=== PATIENT | female | born 1940 | race Caucasian/White ===

== ENCOUNTER → 2016-09-10 | Outpatient (CLI) | payer MEDICARE, BC ==
[~2016-09-10] MED LIST: ALBUTEROL SULFATE 0.083% NEB 2.5 MG/3 ML AMPUL NEB ONE
--- NOTE | 2016-09-11 11:11 | PULMONARY FUNCTION TEST ---
DATE OF SERVICE: 09/10/2016 THE VITAL CAPACITY IS SEVERELY DECREASED. THE EXPIRATORY FLOW RATES ARE SEVERELY DECREASED. THE FEV1/VC IS 70%, PREDICTED: 82% LUNG VOLUMES BY NITROGEN WASH OUT METHOD SHOW: TLC IS 46% OF PREDICTED FRC IS 58% OF PREDICTED RV IS 48% OF PREDICTED THE DLCO IS 6.3, 32% OF PREDICTED. THE RV/TLC RATIO IS 44% PREDICTED 42% AFTER BRONCHODILATOR, EXPIRATORY FLOW RATES SHOW NO SIGNIFICANT CHANGE. IMPRESSION: GOOD PATIENT EFFORT. ALTHOUGH THE FEV1/VC IS REDUCED, THE DECREASED LUNG VOLUMES INDICATE A SEVERE RESTRICTIVE DEFECT. DIFFUSING CAPACITY IS SEVERELY DECREASED. CC: GRISELDA ROBBINS MD > KAT
== END ==
LOC: RT 13:38
PROVIDERS: ATTEND Internal Medicine Pulmonary Disease
DX: R05 Cough (principal); R06.00 Dyspnea, unspecified
CPT/HCPCS: 94729; 94727; 94060; 94640; A9270

== ENCOUNTER 2016-10-06 08:27 | Day surgery (SDC) | payer MEDICARE, BC ==
[~2016-10-06 08:27] MED LIST changes: -ALBUTEROL SULFATE 0.083% NEB 2.5 MG/3 ML AMPUL NEB ONE; +CEFAZOLIN SODIUM 1 GM in DEXTROSE 5%-WATER 50 ML IV PRN
[2016-10-06 09:23] LABS: ABSOLUTE EOSINOPHILS # (AUTO) 0.1 10^3/uL (0.0-0.6); ABSOLUTE LYMPHOCYTES (AUTO) 0.7 10^3/uL (0.5-4.7); ABSOLUTE MONOCYTES (AUTO) 0.6 10^3/uL (0.1-1.4); ABSOLUTE NEUT (AUTO) 2.7 10^3/uL (1.7-8.2); BASOPHILS % (AUTO) 1.1 % (0-2); EOSINOPHILS % (AUTO) 2.2 % (0-6); LYMPHOCYTES % (AUTO) 16.2 % (13-45); MEAN CORPUSCULAR HEMOGLOBIN 32.1 pg (27.0-33.4); MEAN CORPUSCULAR HGB CONC 33.3 g/dL (32.0-36.0); MEAN CORPUSCULAR VOLUME 96 fl (80-97); MONOCYTES % (AUTO) 13.9 % (3-13); RED BLOOD COUNT 3.43 10^6/uL (3.72-5.28); RED CELL DISTRIBUTION WIDTH 13.9 % (11.5-14.0); SEGMENTED NEUTROPHILS % (AUTO) 66.6 % (42-78); WHITE BLOOD COUNT 4.1 10^3/uL (4.0-10.5)
[2016-10-06 09:44] LABS: ANION GAP 11 (5-19); BLOOD UREA NITROGEN 30 mg/dL (7-20); CALCIUM 8.5 mg/dL (8.4-10.2); CARBON DIOXIDE 31 mmol/L (22-30); CHLORIDE 97 mmol/L (98-107); CREATININE RESULT 3.51 mg/dL (0.52-1.25); GLUCOSE 123 mg/dL (75-110); POTASSIUM 3.9 mmol/L (3.6-5.0); SODIUM 138.6 mmol/L (137-145)
[2016-10-06] MEDS ORDERED: HEPARIN SOD (PORCINE) 5,000 UNIT/ML 1 ML SYRINGE ONE (09:55)
[2016-10-06] MEDS ORDERED: FENTANYL CITRATE INJ/PF 100 MCG/2 ML AMPUL ONE (09:55)
[2016-10-06] MEDS ORDERED: MIDAZOLAM 2 MG/2 ML INJ ONE (09:55)
[2016-10-06] MEDS ORDERED: LIDOCAINE 0.5% INJ-PF (5 MG/ML) 50 ML SDV ONE (10:42)
--- NOTE | 2016-10-06 12:00 | PDOC DISCHARGE SUMMARY ---
Discharge Summary (SDC) - Discharge Final Diagnosis: #1 malfunctioning arteriovenous fistula left transposed brachial vein. #2 end-stage renal disease on hemodialysis. #3 coronary artery disease. Number for cardiac arrhythmia. Number #5 diabetes mellitus type II. #6 hypertension. Date of Surgery: 10/06/16 Discharge Date: 10/06/16 Condition: Fair Treatment or Instructions: #1 activities within moderation encouraged. #2 follow up in my office by appointment in about 1 month. Call for appointment. #3 the wounds covered clean and dry until removed and hemodialysis. #4 hold off on school/work until evaluation in office. #5 may shower in 48 hours, keep operated area as dry as possible. #6 discharge from ambulatory when ASU criteria met. #7 medications per medication reconciliation sheet. Discharge Diet: Other (Comments) - Renal, diabetic Respiratory Treatments at Home: Deep Breathing/Coughing Report the Following to Your Physician Immediately: Unusual Bleeding
--- NOTE | 2016-10-06 12:16 | Operative Report ---
Operative Report DATE OF SURGERY: 10/06/16 PREOPERATIVE DIAGNOSIS: #1 malfunctioning arteriovenous fistula left transposed brachial vein. #2 end-stage renal disease on hemodialysis. #3 coronary artery disease. Number for cardiac arrhythmia. Number. #5 diabetes mellitus type II. #6 hypertension. POSTOPERATIVE DIAGNOSIS: #1 malfunctioning arteriovenous fistula left transposed brachial vein. #2 end-stage renal disease on hemodialysis. #3 coronary artery disease. Number for cardiac arrhythmia. Number. #5 diabetes mellitus type II. #6 hypertension. OPERATION: #1 needle access into fistula. #2 central, subclavian angioplasty. #3 arteriovenous fistula angioplasty. #4 angiogram and interpretation. SURGEON: ASHOK NEWTON ASSOCIATE ACCOUNT DIRECTOR: none ANESTHESIA: Moderate Sedation TISSUE REMOVED OR ALTERED: None COMPLICATIONS: None ESTIMATED BLOOD LOSS: 2 mL INTRAOPERATIVE FINDINGS: Of a well-founded left transposed basilic vein fistula. Relatively firm in the first 6 cm. Decent caliber for some stenosis in the upper arm, hemodynamic significance difficult to ascertain. Improved and angioplasty. Major stenosis appreciated were the the fistula later leads go into the left subclavian. This was addressed with partial resolution. Complete resolution is probably not possible because of the leads.. Would be fracturing the leads a to higher pressure. Modest improvement was obtained with a residual about 50% stenosis. Initially estimated to be over 80% stenosis. A collateral vessel noted initially remains after angioplasty. Further interventions might need a retrograde approach with attempted improvement in the arterial inflow. PROCEDURE: PROCEDURE: After verifying the procedure and having obtained informed consent, the patient's left arm was prepared with Chlorhexidine and draped out with sterile linen. Local anesthesia infiltrated. Percutaneous access into the fistula ,[ antegrade], obtained about [3 cm] from the arteriovenous anastomosis using a 6 16-gauge needle followed by 0.035 Glidewire, this was followed by a [8] angioplasty balloon . Angioplasty was done and the area of stenosis in the left subclavian. This was done after manipulating the guidewire into the innominate. It proved challenging probably because of the severity of stenosis. A brief mesh angiogram was conducted just to be sure of positioned before inflation. Inflation was done up to a maximum of 8 roosevelt and drainage slowly and gently. Patient angiogram showed improvement. Because of the proximity of the pacemaker leads further inflation was not done. Result was accepted. Inflation now done up to 14 roosevelt for 30 seconds each serially done from the upper fistula down to the introducer. Completion angiogram demonstrated [satisfactory result]. The instrumentation was now withdrawn over a short piece of catheter and a 5-0 Prolene suture. Dressings applied, procedure concluded. Exposure time: 1.5 minutes Radiation: 67 jackson per centimeter squared Contrast: 25 mL of Isovue-M 300, low osmolality. DICTATING PHYSICIAN: ASHKO SOLER M.D. cc: ASHOK SOLER M.D. ([id number]) >>
[2016-10-06 14:09] VITALS: BP 117/52
--- NOTE | 2016-10-06 21:52 | EKG REPORT ---
SEVERITY:- ABNORMAL ECG - VENTRICULAR-PACED RHYTHM : Confirmed by: Estelita Bermeo 06-Oct-2016 21:51:22
== END 2016-10-06 13:25 | disposition home or self-care (01) ==
LOC: CCL 08:27
PROVIDERS: ATTEND Surgery
PROC: 057A3DZ Dilation of Left Brachial Vein with Intraluminal Device, Percutaneous Approach (ICD-10-PCS; principal; 2016-10-06)
DX: T82.858A Stenosis of other vascular prosthetic devices, implants and grafts, initial encounter (principal); Y83.2 Surgical operation with anastomosis, bypass or graft as the cause of abnormal reaction of the patient, or of later complication, without mention of misadventure at the time of the procedure; I12.0 Hypertensive chronic kidney disease with stage 5 chronic kidney disease or end stage renal disease; E11.22 Type 2 diabetes mellitus with diabetic chronic kidney disease; N18.6 End stage renal disease; I25.10 Atherosclerotic heart disease of native coronary artery without angina pectoris; Z99.2 Dependence on renal dialysis; I42.9 Cardiomyopathy, unspecified; E03.9 Hypothyroidism, unspecified; G40.309 Generalized idiopathic epilepsy and epileptic syndromes, not intractable, without status epilepticus; E21.3 Hyperparathyroidism, unspecified; I50.9 Heart failure, unspecified; Z79.899 Other long term (current) drug therapy; Z79.02 Long term (current) use of antithrombotics/antiplatelets; Z79.4 Long term (current) use of insulin
CPT/HCPCS: 36415; 85025; 80048; 36902; 71010; 93005; 93010; C1725; Q9967; C1769; J2250; J1644 ×2; J0690; J3010; J3490

== ENCOUNTER 2016-11-25 16:41 | Inpatient (IN) | payer MEDICARE, BC ==
--- NOTE | 2016-11-25 17:01 | ER Document Report ---
ED General - General Chief Complaint: Dialysis Shunt Problem Stated Complaint: BLEEDING LEFT ARM Mode of Arrival: Ambulatory Information source: Patient Notes: 76 yr old female hx of esrd on dialysis who had dialysis today completed presented with complaints of sob and bleeding from the access. Pt denies any fevers or chills, denies any productive cough. pt notes dr quach believed the fluid requires thoracentesis. TRAVEL OUTSIDE OF THE [place] IN LAST 30 DAYS: No - HPI Onset: Last week Onset/Duration: Persistent, Worse Quality of pain: No pain Severity: Moderate Pain Level: Denies Associated symptoms: Shortness of breath Exacerbated by: Denies Relieved by: Denies Similar symptoms previously: Yes Recently seen / treated by doctor: Yes - Related Data Allergies/Adverse Reactions: Sulfa (Sulfonamide Antibiotics) Allergy (Severe, Verified 11/25/16 16:45) Rash Past Medical History - Social History Smoking Status: Former Smoker Cigarette use (# per day): No Chew tobacco use (# tins/day): No Smoking Education Provided: No Family History: Reviewed & Not Pertinent Patient has suicidal ideation: No Patient has homicidal ideation: No - Past Medical History Cardiac Medical History: Reports: Hx Congestive Heart Failure, Hx Coronary Artery Disease, Hx Heart Attack, Hx Hypertension Pulmonary Medical History: Denies: Hx Asthma, Hx Bronchitis, Hx COPD, Hx Pneumonia Neurological Medical History: Reports: Hx Seizures - seizure precautions . Denies: Hx Cerebrovascular Accident Endocrine Medical History: Reports: Hx Diabetes Mellitus Type 2 Renal/ Medical History: Reports: Hx End Stage Renal Disease, Hx Kidney Stones. Denies: Hx Peritoneal Dialysis Musculoskeltal Medical History: Denies Hx Arthritis Psychiatric Medical History: Denies: Hx Depression Past Surgical History: Reports: Hx Cardiac Surgery - pacemaker, Hx Cholecystectomy, Hx Hysterectomy, Hx Tonsillectomy - and adenoids - Immunizations Hx Diphtheria, Pertussis, Tetanus Vaccination: Yes Review of Systems - Review of Systems Notes: REVIEW OF SYSTEMS: CONSTITUTIONAL : Denies fever, chills, or sweats. Denies recent illness. EENT: Denies eye, ear, throat, or mouth pain or symptoms. Denies nasal or sinus congestion or discharge. Denies throat, tongue, or mouth swelling or difficulty swallowing. CARDIOVASCULAR: Denies chest pain. Denies palpitations or racing or irregular heart beat. Denies ankle edema. RESPIRATORY: Admits to difficulty breathing GASTROINTESTINAL: Denies abdominal pain or distention. Denies nausea, vomiting , or diarrhea. Denies blood in vomitus, stools, or per rectum. Denies black, tarry stools. Denies constipation. GENITOURINARY: Denies difficulty urinating, painful urination, burning, frequency, blood in urine, or discharge. FEMALE GENITOURINARY: Denies vaginal bleeding, heavy or abnormal periods, irregular periods. Denies vaginal discharge or odor. MUSCULOSKELETAL: Denies back or neck pain or stiffness. Denies joint pain or swelling. SKIN: Bleeding from left shunt HEMATOLOGIC : Denies easy bruising or bleeding. LYMPHATIC: Denies swollen, enlarged glands. NEUROLOGICAL: Denies confusion or altered mental status. Denies passing out or loss of consciousness. Denies dizziness or lightheadedness. Denies headache. Denies weakness or paralysis or loss of use of either side. Denies problems with gait or speech. Denies sensory loss, numbness, or tingling. Denies seizures. PSYCHIATRIC: Denies anxiety or stress. Denies depression, suicidal ideation, or homicidal ideation. ALL OTHER SYSTEMS REVIEWED AND NEGATIVE. Dictation was performed using [employer] voice recognition software PHYSICAL EXAMINATION: GENERAL: Well-appearing, well-nourished and in no acute distress. HEAD: Atraumatic, normocephalic. EYES: Pupils equal round and reactive to light, extraocular movements intact, conjunctiva are normal. ENT: Nares patent, oropharynx clear without exudates. Moist mucous membranes. NECK: Normal range of motion, supple without lymphadenopathy LUNGS: Coarse rhonchi at the bases decreased breath sounds bilateral HEART: Regular rate and rhythm without murmurs ABDOMEN: Soft, nontender, nondistended abdomen. No guarding, no rebound. No masses appreciated. Female : deferred Musculoskeletal: Normal range of motion, no pitting or edema. No cyanosis. NEUROLOGICAL: Cranial nerves grossly intact. Normal speech, normal gait. Normal sensory, motor exams PSYCH: Normal mood, normal affect. SKIN: Dialysis access notes no active bleeding or clot in place Physical Exam - Vital signs Vitals: Resp Pulse Ox 22 H 100 11/25/16 16:55 11/25/16 16:55 Course - Re-evaluation Re-evalutation: 11/25/16 17:48 Dr Bullard consulted for admission Pt immediately placed on bipap satting 85% on RA 11/25/16 17:49 11/25/16 18:15 Dr Main flores 11/25/16 18:18 Dr Quach notes pleural effusions since September. varun patient requires thoracentesis. 11/25/16 18:24 Dr Bullard states no longer accepting admissions past 6:15, requests admission to overnight physician. 11/25/16 19:45 Patient is bleeding was immediately stopped with quick clot 11/25/16 19:47 - Vital Signs Vital signs: Temp Pulse Resp BP Pulse Ox 98.9 F 91 23 H 114/91 H 97 11/25/16 16:58 11/25/16 18:51 11/25/16 19:01 11/25/16 19:01 11/25/16 18:51 - Laboratory Result Diagrams: 11/25/16 17:45 11/25/16 17:45 Laboratory results interpreted by me: 11/25/16 11/25/16 11/25/16 17:45 17:45 17:45 WBC 3.4 L RDW 16.1 H Plt Count 100 L Lymphocytes % (Manual) 10 L Monocytes % (Manual) 18 H Abs Lymphs (Manual) 0.3 L Potassium 3.4 L Chloride 94 L BUN 24 H Creatinine 3.46 H Est GFR ( Amer) 15 L Est GFR (Non-Af Amer) 13 L Glucose 131 H Direct Bilirubin 0.7 H AST 40 H Alkaline Phosphatase 251 H NT-Pro-B Natriuret Pep 25443 H - Diagnostic Test Radiology reviewed: Image reviewed, Reports reviewed - EKG Interpretation by Me EKG shows normal: Sinus rhythm, [place], Intervals, QRS Complexes Critical Care Note - Critical Care Note Total time excluding time spent on procedures (mins): 31 Comments: 31 minutes of critical care time spent in direct contact evaluating and reevaluating the patient, treating symptoms, reviewing labs and studies and speaking with family and consultants excluding any procedures Discharge - Discharge Clinical Impression: ESRD (end stage renal disease) on dialysis, Bilateral pleural effusion, Hypokalemia, Hypoxia, Bleeding from shunt Condition: Stable Disposition: ADMITTED INPATIENT Admitting Provider: Hospitalist Unit Admitted: IMCU Referrals: MELODY ARCINIEGA MD [Primary Care Provider] - Follow up as needed
[2016-11-25 18:01] LABS: VENOUS BLOOD BASE EXCESS -2.3 mmol/L; VENOUS BLOOD HCO3 22.9 mmol/L (20-32); VENOUS BLOOD PCO2 40.9 mmHg (35-63); VENOUS BLOOD PH 7.37 (7.30-7.42)
[2016-11-25 18:04] LABS: RED BLOOD COUNT 3.92 10^6/uL (3.72-5.28); WHITE BLOOD COUNT 3.4 10^3/uL (4.0-10.5)
[2016-11-25 18:05] LABS: HEMATOCRIT 38.1 % (36.0-47.0); HEMOGLOBIN 12.8 g/dL (12.0-15.5); HGB HCT DIFFERENCE 0.3; MEAN CORPUSCULAR HEMOGLOBIN 32.7 pg (27.0-33.4); MEAN CORPUSCULAR HGB CONC 33.7 g/dL (32.0-36.0); MEAN CORPUSCULAR VOLUME 97 fl (80-97); RED CELL DISTRIBUTION WIDTH 16.1 % (11.5-14.0)
[2016-11-25 18:06] LABS: PROTHROMBIN TIME 14.4 SEC (11.4-15.4)
[2016-11-25 18:21] LABS: ALANINE AMINOTRANSFERASE 31 U/L (9-52); ALBUMIN 4.4 g/dL (3.5-5.0); ALKALINE PHOSPHATASE 251 U/L (38-126); ANION GAP 18 (5-19); ASPARTATE AMINO TRANSFERASE 40 U/L (14-36); BILIRUBIN,DIRECT 0.7 mg/dL (0.0-0.4); BILIRUBIN,TOTAL 0.8 mg/dL (0.2-1.3); BLOOD UREA NITROGEN 24 mg/dL (7-20); CALCIUM 8.5 mg/dL (8.4-10.2); CARBON DIOXIDE 28 mmol/L (22-30); CHLORIDE 94 mmol/L (98-107); CREATININE RESULT 3.46 mg/dL (0.52-1.25); GLUCOSE 131 mg/dL (75-110); POTASSIUM 3.4 mmol/L (3.6-5.0); SODIUM 140.3 mmol/L (137-145); TOTAL PROTEIN 8.1 g/dL (6.3-8.2)
[2016-11-25 18:24] LABS: BAND NEUTROPHILS % (MANUAL) 3 % (3-5); BASOPHILS % (MANUAL) 2 % (0-2); EOSINOPHILS % (MANUAL) 0 % (0-6); LYMPHOCYTES % (MANUAL) 10 % (13-45); TOTAL CELLS COUNTED 100
[2016-11-25 18:26] LABS: ANISOCYTOSIS 1+; OVALOCYTES 1+; POIKILOCYTOSIS 1+; SCHISTOCYTES SLIGHT; TOXIC VACUOLATION PRESENT
[2016-11-25] MEDS ORDERED: DEXTROSE 50%-WATER 25 GM/50 ML DISP.SYRIN IV PRN ×2 (21:54)
[2016-11-25] MEDS ORDERED: GLUCAGON,HUMAN RECOMB 1 MG INJ IM PRN (21:54)
[2016-11-25] MEDS ORDERED: DEXTROSE 40% GEL 15 GM TUBE PO PRN ×2 (21:54)
[2016-11-25 22:29] LABS: ARTERIAL BLOOD BASE EXCESS 2.6 mmol/L; ARTERIAL BLOOD O2 SATURATION 97.9 % (94-98)
[2016-11-26] MEDS ORDERED: IPRATROPIUM/ALBUTEROL 0.5-2.5 MG/3 ML AMPUL NEB PRN (00:06)
[2016-11-26] MEDS ORDERED: NORMAL SALINE 1000 ML 1,000 ML IV PRN (00:11)
[2016-11-26] MEDS ORDERED: PHARMACY COMMUNICATION ORDER MC NR (00:15)
[2016-11-26] MEDS ORDERED: ACETAMINOPHEN 325 MG TABLET PO PRN (00:16)
[2016-11-26] MEDS ORDERED: PREDNISONE 20 MG TABLET PO ONE (00:30)
[2016-11-26] MEDS ORDERED: AZITHROMYCIN INJ 500 MG VIAL IV PRN (00:37)
[2016-11-26] MEDS ORDERED: CEFTRIAXONE 1 GM/D5W RTU 1 GM/50 ML RTUPB IV ONE (01:00)
[2016-11-26] MEDS ORDERED: AZITHROMYCIN 500 MG in DEXTROSE 5%-WATER 250 ML IV ONE (01:00)
[2016-11-26] MEDS ORDERED: AZITHROMYCIN INJ 500 MG VIAL IV ONE (01:40)
[2016-11-26 07:14] LABS: ANION GAP 15 (5-19); BLOOD UREA NITROGEN 30 mg/dL (7-20); CALCIUM 7.6 mg/dL (8.4-10.2); CARBON DIOXIDE 27 mmol/L (22-30); CHLORIDE 96 mmol/L (98-107); CREATININE RESULT 4.06 mg/dL (0.52-1.25); GLUCOSE 140 mg/dL (75-110); POTASSIUM 3.6 mmol/L (3.6-5.0); SODIUM 138.4 mmol/L (137-145)
[2016-11-26 07:36] LABS: HEMATOCRIT 33.3 % (36.0-47.0); HEMOGLOBIN 11.3 g/dL (12.0-15.5); HGB HCT DIFFERENCE 0.6; MEAN CORPUSCULAR HEMOGLOBIN 33.2 pg (27.0-33.4); MEAN CORPUSCULAR HGB CONC 34.1 g/dL (32.0-36.0); MEAN CORPUSCULAR VOLUME 97 fl (80-97); RED BLOOD COUNT 3.42 10^6/uL (3.72-5.28); RED CELL DISTRIBUTION WIDTH 16.1 % (11.5-14.0); WHITE BLOOD COUNT 4.8 10^3/uL (4.0-10.5)
[2016-11-26 08:08] LABS: ANISOCYTOSIS 1+; BASOPHILS % (MANUAL) 1 % (0-2); EOSINOPHILS % (MANUAL) 0 % (0-6); HYPOCHROMASIA 1+; LYMPHOCYTES % (MANUAL) 8 % (13-45); OVALOCYTES 1+; POIKILOCYTOSIS 1+; POLYCHROMASIA SLIGHT; SCHISTOCYTES SLIGHT; TOTAL CELLS COUNTED 100; TOXIC GRANULATION SLIGHT
--- NOTE | 2016-11-26 10:33 | PDOC H&P ---
History of Present Illness Admission Date/PCP: 11/25/16 20:39 pcp Navin Quach [facility], [place] Patient complains of: sob, bleeding from dialysis access site History of Present Illness: BRANT ELLISON is a 76 year old female, with end-stage renal disease , having completed her most recent dialysis session earlier the day of admission who presents with complaints of bleeding from her dialysis access site , along with a 2 or 3 day history of slowly progressive shortness of breath. Nothing in particular made the shortness of breath worse. Chronic dry cough, without recent change. Was in a fair amount of respiratory distress upon presentation to the emergency room, but was placed on BiPAP, and is currently breathing much more comfortably. Denies fever chills, diarrhea or dysuria, chest or abdominal pain. Produces a small amount of urine each day. Carries a diagnosis of COPD due to secondhand smoke from her . She never smoked herself. Home oxygen. Also carries a diagnosis of combined systolic and diastolic congestive heart failure. Does state her ankles and feet have been more swollen than usual the last day or 2. Bleeding from the access site was easily controlled in the emergency room by application of a hemostatic pad, according to the emergency room physician, with whom I discussed the patient. Prior to my being called, the emergency room physician did discuss the patient with Dr. Quach, patient's supervisor car and yard. Patient reportedly has chronic bilateral pleural effusions. According to emergency room physician, Dr. Quach believes patient would benefit from thoracentesis. Hospitalized on our service December 29 through the of last year with discharge diagnoses including syncope, felt secondary to seizure due to subtherapeutic Dilantin level. Venous stasis ulcers noted on left lower extremity. History and physical and discharge summary have been reviewed. Laboratory results are listed in [facility] and are reviewed. X-ray summary results are listed below, with full report(s) reviewed. . EKG's reviewed. And compared to prior tracing from October 06 of this year. Social history/personal habits: . Lives with daughter and son-in-law. Retired. Rare glass of wine. No tobacco or illicit drug use. Allergies/adverse reactions are listed in [facility] and are reviewed. Home medications Home medications initially autopopulated into [facility] may not accurately reflect patient's true medications, dosages, and/or frequencies. Unfortunately, patient uncertain of medications/dosages/frequencies. REVIEW OF SYSTEMS: Constitutional: No fever or chills. Eyes: Wears glasses. ENT: No swallowing problems or complaints. No hearing problems or complaints. Pulmonary: See history and present illness. Cardiovascular: No current complaints, including chest pain. Gastrointestinal: No current complaints, including nausea or vomiting. Skin: No current complaints, including rashes. Hematologic: Easy bruising. Neurologic: No current complaints, including numbness or tingling. Musculoskeletal: No current complaints, including painful joints. Psychiatric: Mild Anxiety depression; denies suicidal or homicidal ideation. Endocrine: No current complaints, including polyuria. Genitourinary: No current complaints, including dysuria. PHYSICAL EXAMINATION: 5 feet 2 inches tall. 83.7 kg. BMI 33.8 kg/m. Pressure 99/51. Pulse 83 and regular. Respirations are 28 and unlabored. 95% saturation on BiPAP 14/6, 40% FiO2. Temperature 98.9. Obese somewhat chronically ill-appearing female who nevertheless appears approximately her stated age. Pleasant awake alert and cooperative. Appears slightly fatigued, but otherwise is no obvious distress other than perhaps mildly anxious. no evidence of agitation. Skin is warm and dry. No grossly obvious evidence of rash in areas of skin examined. No subcutaneous nodules palpated. She has one tiny ulcer on the anterior medial aspect of her lower left alanis area, without evidence of infection or drainage. Of note, patient has a history of venous stasis ulcers. Not able to completely evaluate lower extremities due to tight legs of her slacks. ENT: Hearing grossly normal to normal conversation. Tongue midline on protrusion pink and slightly tacky. Exam slightly limited by BiPAP mask with attaching straps. Eyes: No scleral icterus. Pupils equal and reactive to light at 4 mm. [place] conjunctivae. Neck is supple and nontender to gentle active range of motion and palpation. Midline trachea. No palpable thyroid nodule mass enlargement or tenderness. Lymphatic: No palpable cervical or clavicular nodes. Neck and lymphatic exams limited by patient body habitus. Exam slightly limited by BiPAP mask with attaching straps. Psychiatric: Reasonable insight into acute and chronic medical issues. Oriented to time location and why here. Lungs: Auscultation reveals equal breath sounds bilaterally. No use of accessory respiratory muscles. Slightly coarse breath sounds bilaterally. Cardiovascular: Heart regular rate and rhythm, without gallop murmur or rub. No abdominal aortic bruits. Bilateral symmetric moderate calf ankle and pedal edema, slightly pitting. Faintly palpable dorsalis pedis pulses. Not able to adequately evaluate for carotid bruits due to airway sounds from BiPAP device. Abdomen: soft, obese, nontender with positive bowel sounds. Unable to adequately evaluate abdomen for masses or organomegaly due to body habitus. Extremities: Feet are warm and dry. No calf tenderness to compression. Gentle manipulation of lower extremities fails to reveal any obvious evidence of injury or instability to knees hips or ankles though slight decreased range of motion due to swelling involved.. Neurologic: Moves upper extremities grossly normally. Patellar reflexes absent. Absent Babinski. Light touch is intact at feet. Dorsiflexion and plantarflexion of feet 5 / 5 and symmetric. Past Medical History Cardiac Medical History: Reports: Congestive Heart Failure, Coronary Artery Disease, Myocardial Infarction, Hypertension Pulmonary Medical History: Denies: Asthma, Bronchitis, Chronic Obstructive Pulmonary Disease (COPD), Pneumonia, Sleep Apnea Neurological Medical History: Reports: Seizures - last episode 01/06 Endocrine Medical History: Reports: Diabetes Mellitus Type 2 Renal/ Medical History: Reports: End Stage Renal Disease GI Medical History: Denies: Cirrhosis, Gastroesophageal Reflux Disease, Hepatitis, Peptic Ulcer Disease Musculoskeltal Medical History: Denies: Arthritis Psychiatric Medical History: Reports: Depression, General Anxiety Disorder Denies: Alcohol Dependency, Substance Abuse, Tobacco Dependency Hematology: Reports: Anemia Infectious Medical History: Denies: Clostridium Difficile, Hepatitis B, Hepatitis C, Methicillin- Resistant Staph Aureus Past Surgical History Past Surgical History: Reports: Section - STENT, Cholecystectomy, Hysterectomy, Tonsillectomy - and adenoids Social History Information Source: Patient, Emergency Med Personnel, [facility] Records Lives with: Family Smoking Status: Former Smoker Frequency of Alcohol Use: Rare Hx Recreational Drug Use: No Drugs: None Hx Prescription Drug Abuse: No - Advance Directive Resuscitation Status: Do Not Resuscitate - Implications of DO NOT RESUSCITATE/ DO NOT INTUBATE status discussed with patient. Discussed in layperson's terms. Implications understood. Patient is the health care decision maker. Patient conversation is lucid and appropriate. Patient desires DO NOT RESUSCITATE/DO NOT INTUBATE status. Will honor patient wishes. Surrogate healthcare decision maker:: Daughter and son-in-law Family History Family History: Reviewed & Not Pertinent Parental Family History Reviewed: Yes Children Family History Reviewed: Yes Sibling(s) Family History Reviewed.: Yes Medication/Allergy Home Medications: Atorvastatin Calcium [Lipitor 20 mg Tablet] 20 mg PO QHS 11/26/16 Insulin Glargine,Hum.rec.anlog [Lantus Solostar] 15 unit SQ QHS 11/26/16 Levothyroxine Sodium [Synthroid 50 Mcg Tablet] 50 mcg PO DAILY 11/26/16 Metoprolol Tartrate [Lopressor 25 mg Tablet] 25 mg PO DAILY 11/26/16 Phenobarbital [Phenobarbital 64.8 Mg Tablet] 64.8 mg PO DAILY 11/26/16 Phenytoin Sodium Extended [Dilantin 100 mg Capsule.er] 100 mg PO QAM 11/26/16 Phenytoin Sodium Extended [Dilantin 100 mg Capsule.er] 200 mg PO QHS 11/26/16 Allergies/Adverse Reactions: Sulfa (Sulfonamide Antibiotics) Allergy (Severe, Verified 11/25/16 16:45) Rash Physical Exam Vital Signs: Temp Pulse Resp BP Pulse Ox 98.9 F 91 19 97/57 L 98 11/25/16 16:58 11/25/16 18:51 11/25/16 22:01 11/25/16 22:01 11/25/16 22:01 Results Laboratory Results: 11/25/16 22:18 Carbonic Acid 1.19 HCO3/H2CO3 Ratio 22:1 ABG pH 7.45 ABG pCO2 39.7 ABG pO2 101.4 H ABG HCO3 26.8 H ABG O2 Saturation 97.9 ABG Base Excess 2.6 FiO2 50% Impressions: Chest X-Ray 11/25/16 00:00 IMPRESSION: MODERATE BILATERAL PLEURAL EFFUSIONS WITH ASSOCIATED AIRSPACE DISEASE PRESUMABLY REPRESENTING COMPRESSIVE ATELECTASIS. SUPERIMPOSED PNEUMONIA CANNOT BE EXCLUDED. Assessment & Plan - Diagnosis (1) Acute on chronic respiratory failure with hypoxemia Is this a current diagnosis for this admission?: YesPlan: Patient will be admitted under suspected COPD exacerbation protocol. Incentive spirometry twice a day. PRN DuoNeb's. daily prednisone. Antibiotics will consist of Rocephin and intravenous Zithromax. I strongly encouraged patient to notify staff should patient feel that her breathing is worsening. Follow-up blood gas, with titration from BiPAP/CPAP. I have strongly encouraged patient not to get out of bed without notifying staff , , to avoid a fall with injury. Knee high SCDs for DVT prophylaxis; with prominent thrombocytopenia, will hold Lovenox or heparin at this point in time. Impression and plans were discussed with patient, who concurs. Time spent in evaluation and management of patient: 75 minutes. (2) Bilateral pleural effusion Is this a current diagnosis for this admission?: YesPlan: Thoracentesis ordered. (3) Bleeding from shunt Is this a current diagnosis for this admission?: YesPlan: Controlled by hemostatic patch in emergency room. (4) DNR (do not resuscitate) Is this a current diagnosis for this admission?: Yes (5) Hypokalemia Is this a current diagnosis for this admission?: Yes (6) Hypotension Qualifiers: Hypotension type: unspecified hypotension type Qualified Code(s): I95.9 - Hypotension, unspecified Is this a current diagnosis for this admission?: YesPlan: Will follow closely. Will forego Lasix as a result. (7) Thrombocytopenia Is this a current diagnosis for this admission?: YesPlan: Uncertain etiology. Follow-up CBC with differential. (8) Acute on chronic combined systolic and diastolic CHF (congestive heart failure) Is this a current diagnosis for this admission?: YesPlan: Suspected. Consider cardiology consult. (9) COPD exacerbation Is this a current diagnosis for this admission?: Yes (10) ESRD (end stage renal disease) on dialysis Is this a current diagnosis for this admission?: YesPlan: Nephrology consult. (11) Seizure disorder Is this a current diagnosis for this admission?: YesPlan: Seizure precautions.Resume home medications as appropriate once these have been determined and reviewed. - Inpatient Certification Based on my medical assessment, after consideration of the patient's comorbidities, presenting symptoms, or acuity I expect that the services needed warrant INPATIENT care.: Yes I certify that my determination is in accordance with my understanding of Medicare's requirements for reasonable and necessary INPATIENT services [42 CFR 412.3e].: Yes Medical Necessity: Significant Comorbidiites Make Outpatient Treatment Too Risky , Need Close Monitoring Due to Risk of Patient Decompensation, Need For Continuous Telemetry Monitoring, Need for Nebulizer Therapy and Monitoring of Response, Need for IV Antibiotics, Risk of Complication if Not Cared For in Hospital, Risk of Diagnosis Which Will Require Inpatient Eval/Care/Monitoring Post Hospital Care: D/C or Transfer Summary
[2016-11-26] MEDS: PREDNISONE 20 MG TABLET PO SCH (10:55)
[2016-11-26] MEDS: AZITHROMYCIN 500 MG in DEXTROSE 5%-WATER 250 ML IV SCH (10:55)
--- NOTE | 2016-11-26 11:48 | PDOC PROGRESS REPORT ---
Subjective Progress Note for:: 11/26/16 Subjective:: Continues with shortness of breath but reports is better on the BiPAP Physical Exam Vital Signs: Temp Pulse Resp BP Pulse Ox 98.7 F 73 21 H 103/40 L 95 11/26/16 07:28 11/26/16 09:09 11/26/16 09:09 11/26/16 07:28 11/26/16 09:09 Intake & Output 11/25/16 11/26/16 11/27/16 06:59 06:59 06:59 Intake Total 425 Output Total 0 Balance 425 Weight 83.7 kg General appearance: PRESENT: mild distress Eye exam: PRESENT: conjunctiva pink. ABSENT: scleral icterus Mouth exam: PRESENT: moist, tongue midline Neck exam: PRESENT: JVD Respiratory exam: PRESENT: decreased breath sounds - Decreased breath sounds in the bases. ABSENT: rales, rhonchi, wheezes Cardiovascular exam: PRESENT: RRR. ABSENT: diastolic murmur, rubs, systolic murmur GI/Abdominal exam: PRESENT: normal bowel sounds, soft. ABSENT: distended, guarding, mass, organolmegaly, rebound, tenderness Extremities exam: PRESENT: pedal edema. ABSENT: calf tenderness, clubbing Neurological exam: PRESENT: alert, awake, oriented to person, oriented to place , oriented to time, oriented to situation, CN II-XII grossly intact. ABSENT: motor sensory deficit Psychiatric exam: PRESENT: anxious Skin exam: PRESENT: dry, intact, warm. ABSENT: cyanosis, rash Results Laboratory Results: 11/26/16 05:31 11/26/16 05:31 11/25/16 11/26/16 11/26/16 22:18 05:31 05:31 WBC 4.8 RBC 3.42 L Hgb 11.3 L Hct 33.3 L MCV 97 MCH 33.2 MCHC 34.1 RDW 16.1 H Plt Count 74 L Seg Neutrophils % Not Reportable Lymphocytes % Not Reportable Monocytes % Not Reportable Eosinophils % Not Reportable Basophils % Not Reportable Absolute Neutrophils Not Reportable Absolute Lymphocytes Not Reportable Absolute Monocytes Not Reportable Absolute Eosinophils Not Reportable Absolute Basophils Not Reportable Carbonic Acid 1.19 HCO3/H2CO3 Ratio 22:1 ABG pH 7.45 ABG pCO2 39.7 ABG pO2 101.4 H ABG HCO3 26.8 H ABG O2 Saturation 97.9 ABG Base Excess 2.6 FiO2 50% Sodium 138.4 Potassium 3.6 Chloride 96 L Carbon Dioxide 27 Anion Gap 15 BUN 30 H Creatinine 4.06 H Est GFR ( Amer) 13 L Est GFR (Non-Af Amer) 11 L Glucose 140 H Calcium 7.6 L Impressions: Chest X-Ray 11/25/16 00:00 IMPRESSION: MODERATE BILATERAL PLEURAL EFFUSIONS WITH ASSOCIATED AIRSPACE DISEASE PRESUMABLY REPRESENTING COMPRESSIVE ATELECTASIS. SUPERIMPOSED PNEUMONIA CANNOT BE EXCLUDED. Assessment & Plan - Diagnosis (1) Acute on chronic respiratory failure with hypoxemia Is this a current diagnosis for this admission?: YesPlan: Patient has bilateral pleural effusions. She appears to have some congestive heart failure. We'll get a thoracentesis today. (2) Bilateral pleural effusion Is this a current diagnosis for this admission?: YesPlan: Patient to have thoracentesis today by radiology. (3) Bleeding from shunt Is this a current diagnosis for this admission?: YesPlan: Resolved (4) Hypokalemia Is this a current diagnosis for this admission?: YesPlan: Resolved. (5) Hypotension Qualifiers: Hypotension type: unspecified hypotension type Qualified Code(s): I95.9 - Hypotension, unspecified Is this a current diagnosis for this admission?: YesPlan: Resolved. Most likely secondary to being postdialysis. (6) Hypoxia Is this a current diagnosis for this admission?: YesPlan: Secondary to congestive heart failure. Patient to get thoracentesis today (7) Thrombocytopenia Is this a current diagnosis for this admission?: YesPlan: Patient is no evidence for active bleeding at this time. (8) Acute on chronic combined systolic and diastolic CHF (congestive heart failure) Is this a current diagnosis for this admission?: YesPlan: The patient has chronic renal failure with dialysis this contributing to this. She will get a thoracentesis today which should hopefully improve her failure. (9) COPD exacerbation Is this a current diagnosis for this admission?: YesPlan: No wheezing on exam today. Patient was started on prednisone and antibiotics. (10) Anemia Is this a current diagnosis for this admission?: YesPlan: Anemia of chronic illness. (11) Coronary artery disease Qualifiers: Coronary Disease-Associated Artery/Lesion type: unspecified vessel or lesion type [place] vs. transplanted heart: [place] heart Associated angina: angina presence unspecified Qualified Code(s): I25.10 - Atherosclerotic heart disease of [place] coronary artery without angina pectoris Is this a current diagnosis for this admission?: YesPlan: Denies any chest pain. (12) Diabetes mellitus type 1 Is this a current diagnosis for this admission?: YesPlan: We'll cover with finger stick blood sugars as well as sliding scale insulin. (13) ESRD (end stage renal disease) on dialysis Is this a current diagnosis for this admission?: YesPlan: Nephrology has been consulted. (14) Hyperlipidemia Is this a current diagnosis for this admission?: Yes (15) Hypertension Qualifiers: Hypertension type: essential hypertension Qualified Code(s): I10 - Essential (primary) hypertension Is this a current diagnosis for this admission?: Yes (16) Secondary hyperparathyroidism (of renal origin) Is this a current diagnosis for this admission?: Yes (17) Seizure disorder Is this a current diagnosis for this admission?: YesPlan: Patient has been seizure-free. (18) DNR (do not resuscitate) Is this a current diagnosis for this admission?: Yes - Time Time Spent with patient: 25-34 minutes - Inpatient Certification Medical Necessity: Need Close Monitoring Due to Risk of Patient Decompensation
--- NOTE | 2016-11-26 20:37 | PDOC CONSULTATION ---
Consultation Consult Date: 11/26/16 Attending physician:: VOLODYMYR BULLARD Consult reason:: I was asked by Dr. Bullard to see the patient for management of end-stage renal disease and supervision of dialysis. History of Present Illness Admission Date/PCP: 11/25/16 20:55 MELODY ARCINIEGA MD History of Present Illness: BRANT ELLISON is a 76 year old female, known to me with history of end-stage renal disease on maintenance hemodialysis 3 times a week, coronary artery disease status post CABG, COPD, bilateral pleural effusion, diabetes and hypertension who presented to the emergency room yesterday because of shortness of breath and bleeding from her AV fistula. Patient has been progressively having an increasingly short of breath for the last 3-4 weeks as observed by dialysis staff and myself. Yesterday I saw the patient on dialysis and patient does not appear well. In fact she appears to be ill compared to previous. When I saw her on dialysis yesterday afternoon she has diminished breath sounds especially in the right compared to the left side. Patient does not have any home oxygen but whenever she goes to [facility] her oxygen saturation would be 88% or lower at room air were requiring oxygen via nasal cannula while during dialysis. This is a been worsening for the last few weeks. Patient was seen by her home office claim specialist in September 2016 from [facility]. The note indicated that the patient has increasing pleural effusion and thoracentesis might be needed. Patient also has been following up with her apron operator Dr. Olvera who she last saw in September 2016 and was thought to be stable from cardiology standpoint during that time. Patient admits that she's been having some cough with scanty phlegm. She does not have any known fever. Due to her worsening respiratory status we called her daughter and I talked to the patient herself still advise her to either see her home office claim specialist as soon as possible or go to the emergency room. Patient is also having problem with her AV fistula. She started to have some bleeding over the fistula. She has thrombocytopenia but she is also on blood thinners with aspirin and Plavix for her heart. Patient supposed to be scheduled for AV fistula repair by Dr. Casper this morning as an outpatient but she ended up being admitted last night. Dr. Casper saw her this morning and thought that patient is so fragile and weak to undergo surgical procedure today so that was canceled. Patient scheduled for thoracentesis by interventional radiologist today but this is rescheduled for tomorrow. Patient remains to be very short of breath and ill looking. Patient was started on treatment for possible underlying pneumonia and COPD exacerbation with IV antibiotics, prednisone, and nebulization treatment. She continues to wear her C Pap during sleep for her sleep apnea. This evening I saw the patient during dialysis treatment. She still appears very short of breath on oxygen via nasal cannula. She requested their C Pap so she can sleep during dialysis treatment. We are going to try to get this much ultrafiltration as patient can tolerate. There was a note of bleeding on her AV fistula so we decrease her blood flow rate. She seems to be tolerating procedure and comfortable at this time. We will continue to monitor. Past Medical History Cardiac Medical History: Reports: CHF-Diastolic, CHF-Systolic, Coronary Artery Disease, Hyperlipidemia, Hypertension-primary, Myocardial Infarction - November 2009, Pulmonary Hypertension, Valvular Heart disease Pulmonary Medical History: Reports: Chronic Obstructive Pulmonary Disease (COPD) , Sleep Apnea - And C Pap Neurological Medical History: Reports: Seizures - last episode 01/06, Other - History of TIA Endocrine Medical History: Reports: Diabetes Mellitus Type 2, Hypothyroidism Complications of Diabetes: Reports: Nephropathy, Retinopathy Renal/ Medical History: Reports: End Stage Renal Disease, Proteinuria, Renal Osteodystropy Psychiatric Medical History: Reports: Depression, General Anxiety Disorder Past Surgical History Past Surgical History: Reports: Section - STENT, Cholecystectomy, Coronary Artery Bypass Graft - 3 vessel in 2009, Hysterectomy, Tonsillectomy - and adenoids, Other - Coronary stent placement in 2010, pacemaker placement in 2011 Social History Lives with: Family Smoking Status: Former Smoker Frequency of Alcohol Use: Rare Hx Recreational Drug Use: No Drugs: None Hx Prescription Drug Abuse: No - Advance Directive Resuscitation Status: Do Not Resuscitate - Implications of DO NOT RESUSCITATE/ DO NOT INTUBATE status discussed with [patient]. Discussed in layperson's terms. Implications understood. [ Patient ] is the health care decision maker. [Patient] conversation is lucid and appropriate. [Patient] desires DO NOT RESUSCITATE/DO NOT INTUBATE status. Will honor [patient] wishes. Family History Family History: CAD - Father, DM - Father, Malignancy - Colon cancer in her father Parental Family History Reviewed: Yes Children Family History Reviewed: Unknown Sibling(s) Family History Reviewed.: Unknown Medication/Allergy Home Medications: Atorvastatin Calcium [Lipitor 20 mg Tablet] 20 mg PO QHS 11/26/16 Insulin Glargine,Hum.rec.anlog [Lantus Solostar] 15 unit SQ QHS 11/26/16 Levothyroxine Sodium [Synthroid 50 Mcg Tablet] 50 mcg PO DAILY 11/26/16 Metoprolol Tartrate [Lopressor 25 mg Tablet] 25 mg PO DAILY 11/26/16 Phenobarbital [Phenobarbital 64.8 Mg Tablet] 64.8 mg PO DAILY 11/26/16 Phenytoin Sodium Extended [Dilantin 100 mg Capsule.er] 100 mg PO QAM 11/26/16 Phenytoin Sodium Extended [Dilantin 100 mg Capsule.er] 200 mg PO QHS 11/26/16 Allergies/Adverse Reactions: Sulfa (Sulfonamide Antibiotics) Allergy (Severe, Verified 11/25/16 16:45) Rash Review of Systems All systems: reviewed and no additional remarkable complaints except as stated Review of Systems: Constitutional: ABSENT: chills, fever(s), headache(s), weight gain, weight loss , admits feeling tired and fatigued Eyes: ABSENT: visual disturbances Ears: ABSENT: hearing changes Cardiovascular: ABSENT: chest pain, orthropnea, palpitations; admits dyspnea on exertion and chronic bilateral pitting edema Respiratory: ABSENT: dyspnea, hemoptysis, admits cough Gastrointestinal: ABSENT: abdominal pain, constipation, diarrhea, hematemesis, hematochezia, nausea, vomiting Genitourinary: ABSENT: dysuria, hematuria; she is only going to tolerate Musculoskeletal: ABSENT: joint swelling Integumentary: ABSENT: rash, wounds Neurological: ABSENT: abnormal gait, abnormal speech, confusion, dizziness, focal weakness, numbness, syncope Psychiatric: ABSENT: anxiety, depression Endocrine: ABSENT: cold intolerance, heat intolerance, polydipsia, polyuria Hematologic/Lymphatic: ABSENT: easy bleeding, easy bruising, lymphadenopathy Physical Exam Vital Signs: Temp Pulse Resp BP Pulse Ox 98.2 F 88 24 H 125/42 L 92 11/26/16 15:41 11/26/16 15:41 11/26/16 15:41 11/26/16 15:41 11/26/16 15:41 Intake & Output 11/25/16 11/26/16 11/27/16 06:59 06:59 06:59 Intake Total 425 500 Output Total 0 0 Balance 425 500 Weight 83.7 kg Vital signs during dialysis, blood pressure 120/54 heart rate of 85, blood flow rate from 450 noted 300 mL per minute reduced due to bleeding, dialysate flow rate of 600 mL per minute. Exam: General appearance: no acute distress, cooperative, she appears ill Head exam: PRESENT: atraumatic, normocephalic Eye exam: PRESENT: Conjunctiva pale, EOMI, PERRLA. ABSENT: conjunctival injection, scleral icterus Mouth exam: PRESENT: moist, neck supple, tongue midline Neck exam: PRESENT: full ROM. ABSENT: carotid bruit, JVD, lymphadenopathy, thyromegaly Respiratory exam: PRESENT: Harsh breath sounds auscultation bilaterally. She has diffuse rhonchi and wheezes ABSENT: rales, stridor Cardiovascular exam: PRESENT: RRR, +S1, +S2. ABSENT: systolic murmur Pulses: PRESENT: normal radial pulses, normal dorsalis pedis pulses GI/Abdominal exam: PRESENT: normal bowel sounds, soft. ABSENT: guarding, mass, tenderness Rectal exam: deferred Extremities exam: PRESENT: full ROM. She has grade 2 bilateral pitting edema ABSENT: calf tenderness Musculoskeletal: PRESENT: full ROM. ABSENT: deformity Neurological exam: PRESENT: alert, Awake, Oriented to person, Oriented to place , Oriented to time, reflexes normal, CN II-XII grossly intact. ABSENT: motor sensory deficit Psychiatric exam: PRESENT: appropriate affect, normal mood. ABSENT: homicidal ideation, suicidal ideation Skin exam: PRESENT: intact, dry, warm. ABSENT: rash Results Laboratory Results: 11/26/16 05:31 11/26/16 05:31 11/25/16 11/26/16 11/26/16 22:18 05:31 05:31 WBC 4.8 RBC 3.42 L Hgb 11.3 L Hct 33.3 L MCV 97 MCH 33.2 MCHC 34.1 RDW 16.1 H Plt Count 74 L Seg Neutrophils % Not Reportable Lymphocytes % Not Reportable Monocytes % Not Reportable Eosinophils % Not Reportable Basophils % Not Reportable Absolute Neutrophils Not Reportable Absolute Lymphocytes Not Reportable Absolute Monocytes Not Reportable Absolute Eosinophils Not Reportable Absolute Basophils Not Reportable Carbonic Acid 1.19 HCO3/H2CO3 Ratio 22:1 ABG pH 7.45 ABG pCO2 39.7 ABG pO2 101.4 H ABG HCO3 26.8 H ABG O2 Saturation 97.9 ABG Base Excess 2.6 FiO2 50% Sodium 138.4 Potassium 3.6 Chloride 96 L Carbon Dioxide 27 Anion Gap 15 BUN 30 H Creatinine 4.06 H Est GFR ( Amer) 13 L Est GFR (Non-Af Amer) 11 L Glucose 140 H Calcium 7.6 L Impressions: Chest X-Ray 11/25/16 00:00 IMPRESSION: MODERATE BILATERAL PLEURAL EFFUSIONS WITH ASSOCIATED AIRSPACE DISEASE PRESUMABLY REPRESENTING COMPRESSIVE ATELECTASIS. SUPERIMPOSED PNEUMONIA CANNOT BE EXCLUDED. Assessment & Plan - Diagnosis (1) Acute on chronic respiratory failure with hypoxemia Is this a current diagnosis for this admission?: YesPlan: Likely multifactorial secondary to bilateral pleural effusion which is worsening , COPD exacerbation, cannot exclude underlying pneumonia or acute bronchitis, with underlying chronic congestive heart failure. Continue oxygen therapy and C-peptide during sleep. (2) Bilateral pleural effusion Is this a current diagnosis for this admission?: YesPlan: I think he may benefit from diagnostic and therapeutic thoracentesis of the pleural effusion at least on the right side. Patient is scheduled to have thoracentesis of a interventional radiologist tomorrow. (3) COPD exacerbation Is this a current diagnosis for this admission?: YesPlan: Agree with IV antibiotics, prednisone, and nebulization treatment. (4) ESRD (end stage renal disease) on dialysis Is this a current diagnosis for this admission?: YesPlan: We will do dialysis today for [3] hours, using the patient's AV fistula, with 3 potassium bath, blood flow rate of 300 mL per minute, dialysate flow rate of [ 600] mL per minute, ultrafiltration 3-4 L, [no heparin] and no Procrit during dialysis intravenously. Patient will be monitored very closely and adjust ultrafiltration according to her blood pressure. Because of the patient's bleeding over the AV fistula we have to decrease her blood flow rate subsequently. Patient will have continue supervise hemodialysis while here in the hospital. (5) Bleeding from shunt Is this a current diagnosis for this admission?: YesPlan: I spoke to Dr. Casper about the patient's bleeding fistula. Hopefully once the patient is slightly better clinically Dr. Casper can go ahead and repair it. (6) Anemia in chronic kidney disease (CKD) Is this a current diagnosis for this admission?: YesPlan: We will give Procrit during dialysis is needed. (7) Chronic congestive heart failure Qualifiers: Congestive heart failure type: combined Qualified Code(s): I50.42 - Chronic combined systolic (congestive) and diastolic (congestive) heart failure Is this a current diagnosis for this admission?: Yes (8) Diabetes mellitus, type II Is this a current diagnosis for this admission?: Yes (9) Thrombocytopenia Is this a current diagnosis for this admission?: Yes (10) Hypertension Qualifiers: Hypertension type: essential hypertension Qualified Code(s): I10 - Essential (primary) hypertension Is this a current diagnosis for this admission?: Yes - Notes Notes: Thank you very much for this consultation and will follow the patient with you. - Time Time Spent: 50 to 70 Minutes
[2016-11-26] MEDS: CEFTRIAXONE 1 GM/D5W RTU 1 GM/50 ML RTUPB IV SCH (22:56)
[2016-11-27] MEDS: IPRATROPIUM/ALBUTEROL 0.5-2.5 MG/3 ML AMPUL NEB SCH ×4 (02:23→20:49)
[2016-11-27 06:57] LABS: HEMATOCRIT 33.4 % (36.0-47.0); HEMOGLOBIN 11.4 g/dL (12.0-15.5); HGB HCT DIFFERENCE 0.8; MEAN CORPUSCULAR VOLUME 97 fl (80-97); RED BLOOD COUNT 3.45 10^6/uL (3.72-5.28); RED CELL DISTRIBUTION WIDTH 15.9 % (11.5-14.0); WHITE BLOOD COUNT 3.1 10^3/uL (4.0-10.5)
[2016-11-27 07:02] LABS: ANION GAP 18 (5-19); BLOOD UREA NITROGEN 25 mg/dL (7-20); CALCIUM 8.1 mg/dL (8.4-10.2); CARBON DIOXIDE 23 mmol/L (22-30); CHLORIDE 97 mmol/L (98-107); CREATININE RESULT 3.56 mg/dL (0.52-1.25); GLUCOSE 125 mg/dL (75-110); POTASSIUM 3.7 mmol/L (3.6-5.0)
[2016-11-27 07:18] LABS: BASOPHILS % (MANUAL) 0 % (0-2); EOSINOPHILS % (MANUAL) 0 % (0-6); LYMPHOCYTES % (MANUAL) 11 % (13-45); TOTAL CELLS COUNTED 100
[2016-11-27 07:21] LABS: ANISOCYTOSIS SLIGHT
[2016-11-27] MEDS: PREDNISONE 20 MG TABLET PO SCH (09:49)
[2016-11-27] MEDS: AZITHROMYCIN 500 MG in DEXTROSE 5%-WATER 250 ML IV SCH (09:50)
--- NOTE | 2016-11-27 11:02 | PDOC PROGRESS REPORT ---
Subjective Progress Note for:: 11/27/16 Subjective:: Continues with shortness of breath but still is on the BiPAP Physical Exam Vital Signs: Temp Pulse Resp BP Pulse Ox 99.8 F 88 26 H 110/40 L 95 11/27/16 07:38 11/27/16 08:00 11/27/16 08:00 11/27/16 07:38 11/27/16 08:00 Intake & Output 11/26/16 11/27/16 11/28/16 06:59 06:59 06:59 Intake Total 425 510 Output Total 0 3701 Balance 425 -3191 Weight 83.7 kg 78.4 kg General appearance: PRESENT: mild distress Eye exam: PRESENT: conjunctiva pink. ABSENT: scleral icterus Mouth exam: PRESENT: moist, tongue midline Neck exam: PRESENT: JVD Respiratory exam: PRESENT: decreased breath sounds - Decreased breath sounds in the bases. ABSENT: rales, rhonchi, wheezes Cardiovascular exam: PRESENT: irregular rhythm. ABSENT: diastolic murmur, rubs , systolic murmur GI/Abdominal exam: PRESENT: normal bowel sounds, soft. ABSENT: distended, guarding, mass, organolmegaly, rebound, tenderness Extremities exam: PRESENT: pedal edema. ABSENT: calf tenderness, clubbing Neurological exam: PRESENT: alert, awake, oriented to person, oriented to place , oriented to time, oriented to situation, CN II-XII grossly intact. ABSENT: motor sensory deficit Psychiatric exam: PRESENT: anxious Skin exam: PRESENT: dry, intact, warm. ABSENT: cyanosis, rash Results Laboratory Results: 11/27/16 06:09 11/27/16 06:09 11/27/16 11/27/16 06:09 06:09 WBC 3.1 L RBC 3.45 L Hgb 11.4 L Hct 33.4 L MCV 97 MCH 33.0 MCHC 34.0 RDW 15.9 H Plt Count 79 L Seg Neutrophils % Not Reportable Lymphocytes % Not Reportable Monocytes % Not Reportable Eosinophils % Not Reportable Basophils % Not Reportable Absolute Neutrophils Not Reportable Absolute Lymphocytes Not Reportable Absolute Monocytes Not Reportable Absolute Eosinophils Not Reportable Absolute Basophils Not Reportable Sodium 138.0 Potassium 3.7 Chloride 97 L Carbon Dioxide 23 Anion Gap 18 BUN 25 H Creatinine 3.56 H Est GFR ( Amer) 15 L Est GFR (Non-Af Amer) 12 L Glucose 125 H Calcium 8.1 L Impressions: Chest X-Ray 11/25/16 00:00 IMPRESSION: MODERATE BILATERAL PLEURAL EFFUSIONS WITH ASSOCIATED AIRSPACE DISEASE PRESUMABLY REPRESENTING COMPRESSIVE ATELECTASIS. SUPERIMPOSED PNEUMONIA CANNOT BE EXCLUDED. Assessment & Plan - Diagnosis (1) Acute on chronic respiratory failure with hypoxemia Is this a current diagnosis for this admission?: YesPlan: Patient has bilateral pleural effusions. She appears to have some congestive heart failure. Will get a thoracentesis today. (2) Bilateral pleural effusion Is this a current diagnosis for this admission?: YesPlan: Patient to have thoracentesis today by radiology. (3) Bleeding from shunt Is this a current diagnosis for this admission?: YesPlan: Resolved (4) Hypokalemia Is this a current diagnosis for this admission?: YesPlan: Resolved. (5) Hypotension Qualifiers: Hypotension type: unspecified hypotension type Qualified Code(s): I95.9 - Hypotension, unspecified Is this a current diagnosis for this admission?: YesPlan: Resolved. (6) Hypoxia Is this a current diagnosis for this admission?: YesPlan: Secondary to congestive heart failure. Patient to get thoracentesis today (7) Thrombocytopenia Is this a current diagnosis for this admission?: YesPlan: Patient is no evidence for active bleeding at this time. (8) Acute on chronic combined systolic and diastolic CHF (congestive heart failure) Is this a current diagnosis for this admission?: YesPlan: The patient has chronic renal failure with dialysis this contributing to this. She will get a thoracentesis today which should hopefully improve her failure. (9) COPD exacerbation Is this a current diagnosis for this admission?: YesPlan: No wheezing on exam today. Patient was started on prednisone and antibiotics. (10) Anemia Is this a current diagnosis for this admission?: YesPlan: Anemia of chronic illness. (11) Coronary artery disease Qualifiers: Coronary Disease-Associated Artery/Lesion type: unspecified vessel or lesion type [place] vs. transplanted heart: [place] heart Associated angina: angina presence unspecified Qualified Code(s): I25.10 - Atherosclerotic heart disease of [place] coronary artery without angina pectoris Is this a current diagnosis for this admission?: YesPlan: Denies any chest pain. (12) Diabetes mellitus type 1 Is this a current diagnosis for this admission?: YesPlan: We'll cover with finger stick blood sugars as well as sliding scale insulin. (13) ESRD (end stage renal disease) on dialysis Is this a current diagnosis for this admission?: YesPlan: She had dialysis yesterday (14) Hyperlipidemia Is this a current diagnosis for this admission?: Yes (15) Hypertension Qualifiers: Hypertension type: essential hypertension Qualified Code(s): I10 - Essential (primary) hypertension Is this a current diagnosis for this admission?: Yes (16) Secondary hyperparathyroidism (of renal origin) Is this a current diagnosis for this admission?: Yes (17) Seizure disorder Is this a current diagnosis for this admission?: YesPlan: Patient has been seizure-free. (18) DNR (do not resuscitate) Is this a current diagnosis for this admission?: Yes - Time Time Spent with patient: 25-34 minutes - Inpatient Certification Medical Necessity: Need Close Monitoring Due to Risk of Patient Decompensation - Plan Summary Plan Summary: she was unable to get a thoracentesis yesterday because of some question of the timing of her last dose of Plavix. She should get her thoracentesis today.
[2016-11-27 13:01] LABS: FLUID TYPE PLEURAL
[2016-11-27 13:02] LABS: FLUID APPEARANCE HAZY; FLUID RBC AVERAGE 267.5; FLUID RBC DILUENT USED NONE USED; FLUID RBC DILUTION FACTOR 1; FLUID RBC SIDE 1 285; FLUID RBC SIDE 2 250; TOTAL RBC SQUARES COUNTED FLD 25
[2016-11-27 14:26] LABS: AMORPHOUS SEDIMENT,URINE TRACE /HPF; APPEARANCE,URINE SLIGHTLY-CLOUDY; BILIRUBIN,URINE NEGATIVE (NEGATIVE); GLUCOSE, URINE NEGATIVE (NEGATIVE); KETONES,URINE TRACE mg/dL (NEGATIVE); LEUKOCYTE ESTERASE,URINE NEGATIVE (NEGATIVE); NITRITE,URINE NEGATIVE (NEGATIVE); PROTEIN,URINE 30 mg/dL (NEGATIVE); URINE SPECIFIC GRAVITY 1.023; UROBILINOGEN,URINE NEGATIVE mg/dL (<2.0)
--- NOTE | 2016-11-27 15:44 | EKG REPORT ---
SEVERITY:- ABNORMAL ECG - ATRIAL-SENSED VENTRICULAR-PACED COMPLEXES : Confirmed by: Stephanie Robles MD 27-Nov-2016 15:43:25
[2016-11-27] MEDS ORDERED: MORPHINE SULFATE 10 MG/ML INJ IV ONE (17:00)
[2016-11-27] MEDS: FOLIC ACID/VITAMIN B COMP W-C CAPSULE PO SCH (17:15)
[2016-11-27] MEDS: INSULIN LISPRO 100 UNIT/ML 3 ML VIAL SUBCUT PRN ×2 (18:06→22:43)
--- NOTE | 2016-11-27 18:58 | PDOC PROGRESS REPORT ---
Subjective Progress Note for:: 11/27/16 Subjective:: Patient underwent both diagnostic and therapeutic thoracentesis today care of the interventional radiologists and was able to take off 1.7 L of fluid. Patient became a little bit tachypneic after the procedure and was placed on BiPAP. At this time, I'm seeing her she seems calm and breathing better. She claims she feels better. She still doesn't have appetite now. Physical Exam Vital Signs: Temp Pulse Resp BP Pulse Ox 97.7 F 91 24 H 104/38 L 98 11/27/16 14:56 11/27/16 14:56 11/27/16 14:51 11/27/16 14:56 11/27/16 14:56 Intake & Output 11/26/16 11/27/16 11/28/16 06:59 06:59 06:59 Intake Total 425 510 Output Total 0 3701 Balance 425 -3191 Weight 83.7 kg 78.4 kg Exam: General appearance: PRESENT: no acute distress, cooperative, well-developed, well-nourished Head exam: PRESENT: atraumatic, normocephalic Eye exam: PRESENT: conjunctiva slightly pale, PERRLA. ABSENT: scleral icterus Neck exam: ABSENT: JVD Respiratory exam: PRESENT: Diminished breath sounds. Breath sounds diminished on the right compared to the left ABSENT: crackles, rales, rhonchi, unlabored, wheezes Cardiovascular exam: PRESENT: Regular rate rhythm -+S1, +S2. ABSENT: diastolic murmur, systolic murmur GI/Abdominal exam: PRESENT: normal bowel sounds, soft. ABSENT: guarding, mass, tenderness Extremities exam: Improved chronic grade 1 bilateral lower extremity edema Neurological exam: PRESENT: alert, awake, oriented to person, place and time. Skin exam: PRESENT: dry, warm, Results Laboratory Results: 11/27/16 06:09 11/27/16 06:09 11/27/16 11/27/16 11/27/16 06:09 06:09 11:43 WBC 3.1 L RBC 3.45 L Hgb 11.4 L Hct 33.4 L MCV 97 MCH 33.0 MCHC 34.0 RDW 15.9 H Plt Count 79 L Seg Neutrophils % Not Reportable Lymphocytes % Not Reportable Monocytes % Not Reportable Eosinophils % Not Reportable Basophils % Not Reportable Absolute Neutrophils Not Reportable Absolute Lymphocytes Not Reportable Absolute Monocytes Not Reportable Absolute Eosinophils Not Reportable Absolute Basophils Not Reportable Sodium 138.0 Potassium 3.7 Chloride 97 L Carbon Dioxide 23 Anion Gap 18 BUN 25 H Creatinine 3.56 H Est GFR ( Amer) 15 L Est GFR (Non-Af Amer) 12 L Glucose 125 H Calcium 8.1 L Urine Color Urine Appearance Urine pH Ur Specific [place] Urine Protein Urine Glucose (UA) Urine Ketones Urine Blood Urine Nitrite Ur Leukocyte Esterase Urine WBC (Auto) Urine RBC (Auto) Fluid Type PLEURAL Fluid Source Fluid Color DARK YELLOW Fluid Appearance HAZY Fluid Viscosity LIQUID Fluid WBC 56 Fluid RBC 2675 11/27/16 13:00 WBC RBC Hgb Hct MCV MCH MCHC RDW Plt Count Seg Neutrophils % Lymphocytes % Monocytes % Eosinophils % Basophils % Absolute Neutrophils Absolute Lymphocytes Absolute Monocytes Absolute Eosinophils Absolute Basophils Sodium Potassium Chloride Carbon Dioxide Anion Gap BUN Creatinine Est GFR ( Amer) Est GFR (Non-Af Amer) Glucose Calcium Urine Color BARRY Urine Appearance SLIGHTLY-CLOUDY Urine pH 5.0 Ur Specific [place] 1.023 Urine Protein 30 H Urine Glucose (UA) NEGATIVE Urine Ketones TRACE H Urine Blood SMALL H Urine Nitrite NEGATIVE Ur Leukocyte Esterase NEGATIVE Urine WBC (Auto) 5 Urine RBC (Auto) 1 Fluid Type Fluid Source Fluid Color Fluid Appearance Fluid Viscosity Fluid WBC Fluid RBC Impressions: Thoracentesis Ultrasound 11/27/16 00:07 IMPRESSION: SUCCESSFUL THORACENTESIS USING ULTRASOUND GUIDANCE. Chest X-Ray 11/27/16 13:55 IMPRESSION: STABLE APPEARANCE OF THE CHEST. NO PNEUMOTHORAX FOLLOWING THORACENTESIS. Assessment & Plan - Diagnosis (1) Acute on chronic respiratory failure with hypoxemia Is this a current diagnosis for this admission?: YesPlan: Likely multifactorial secondary to bilateral pleural effusion which is worsening , COPD exacerbation, cannot exclude underlying pneumonia or acute bronchitis, with underlying chronic congestive heart failure. Continue oxygen therapy and BiPAP during sleep. Clinically improved after paracentesis today. (2) Bilateral pleural effusion Is this a current diagnosis for this admission?: YesPlan: Status post right thoracentesis obtaining 1.7 L of fluid. (3) COPD exacerbation Is this a current diagnosis for this admission?: YesPlan: Agree with IV antibiotics, prednisone, and nebulization treatment. She seems improved today. (4) ESRD (end stage renal disease) on dialysis Is this a current diagnosis for this admission?: YesPlan: We will plan for dialysis tomorrow. We will get ultrafiltration for only up to 2 L. I will not be around tomorrow so Dr. Tejas Hdez will be supervising her dialysis. (5) Bleeding from shunt Is this a current diagnosis for this admission?: YesPlan: I spoke to Dr. Casper about the patient's bleeding fistula. Hopefully once the patient is slightly better clinically Dr. Casper can go ahead and repair it. Hopefully that can be done next week before she goes home. (6) Anemia in chronic kidney disease (CKD) Is this a current diagnosis for this admission?: YesPlan: We will give Procrit during dialysis is needed. (7) Chronic congestive heart failure Qualifiers: Congestive heart failure type: combined Qualified Code(s): I50.42 - Chronic combined systolic (congestive) and diastolic (congestive) heart failure Is this a current diagnosis for this admission?: Yes (8) Diabetes mellitus, type II Is this a current diagnosis for this admission?: Yes (9) Thrombocytopenia Is this a current diagnosis for this admission?: Yes (10) Hypertension Qualifiers: Hypertension type: essential hypertension Qualified Code(s): I10 - Essential (primary) hypertension Is this a current diagnosis for this admission?: YesPlan: Currently hypotensive without her usual blood pressure medications. Continue to hold all other blood pressure medications. - Time Time with patient: 15-25 minutes
[2016-11-27] MEDS: CEFTRIAXONE 1 GM/D5W RTU 1 GM/50 ML RTUPB IV SCH (21:59)
[2016-11-28] MEDS: IPRATROPIUM/ALBUTEROL 0.5-2.5 MG/3 ML AMPUL NEB SCH ×4 (02:15→20:34)
[2016-11-28 05:52] LABS: HEMATOCRIT 34.7 % (36.0-47.0); HEMOGLOBIN 11.7 g/dL (12.0-15.5); HGB HCT DIFFERENCE 0.4; MEAN CORPUSCULAR HEMOGLOBIN 32.9 pg (27.0-33.4); MEAN CORPUSCULAR HGB CONC 33.7 g/dL (32.0-36.0); MEAN CORPUSCULAR VOLUME 98 fl (80-97); RED BLOOD COUNT 3.55 10^6/uL (3.72-5.28); RED CELL DISTRIBUTION WIDTH 16.2 % (11.5-14.0); WHITE BLOOD COUNT 3.5 10^3/uL (4.0-10.5)
[2016-11-28 05:58] LABS: ANION GAP 14 (5-19); BLOOD UREA NITROGEN 39 mg/dL (7-20); CARBON DIOXIDE 27 mmol/L (22-30); CHLORIDE 95 mmol/L (98-107); CREATININE RESULT 4.48 mg/dL (0.52-1.25); GLUCOSE 197 mg/dL (75-110); POTASSIUM 3.6 mmol/L (3.6-5.0); SODIUM 135.5 mmol/L (137-145)
[2016-11-28 06:31] LABS: BASOPHILS % (MANUAL) 1 % (0-2); EOSINOPHILS % (MANUAL) 0 % (0-6); LYMPHOCYTES % (MANUAL) 12 % (13-45); TOTAL CELLS COUNTED 100
[2016-11-28 06:32] LABS: ANISOCYTOSIS 1+; BURR CELLS SLIGHT; OVALOCYTES SLIGHT
[2016-11-28] MEDS: AZITHROMYCIN 500 MG in DEXTROSE 5%-WATER 250 ML IV SCH (10:15)
[2016-11-28] MEDS: PREDNISONE 20 MG TABLET PO SCH (10:15)
[2016-11-28] MEDS: INSULIN LISPRO 100 UNIT/ML 3 ML VIAL SUBCUT PRN ×2 (11:56→21:39)
--- NOTE | 2016-11-28 12:26 | PDOC PROGRESS REPORT ---
Subjective Progress Note for:: 11/28/16 Subjective:: Patient still has shortness of breath. She is currently on BiPAP and states that when she tries to come off of BiPAP after a while her breathing worsens and she has to go back on BiPAP again. She states that she does not wear oxygen outside of the hospital. Patient denies fever, chills, headache, new focal weakness, chest pain, abdominal pain, nausea, vomiting, diarrhea, constipation. Physical Exam Vital Signs: Temp Pulse Resp BP Pulse Ox 97.9 F 87 22 H 109/40 L 96 11/28/16 08:21 11/28/16 08:25 11/28/16 08:25 11/28/16 08:21 11/28/16 08:21 Intake & Output 11/27/16 11/28/16 11/29/16 06:59 06:59 06:59 Intake Total 510 770 Output Total 3701 Balance -3191 770 Weight 78.4 kg 76.2 kg 76.2 kg GENERAL: No acute distress HEENT: Conjunctiva clear, nonicteric, moist mucous membranes, no JVD, midline trachea RESPIRATORY: Bilateral anterior rhonchi R>L CARDIAC: Regular rate and rhythm, no murmurs/gallops/rubs ABDOMEN: Soft, nondistended, nontender, positive bowel sounds, no rebound, no guarding EXTREMETIES: No edema, cyanosis, clubbing NEUROLOGIC: Alert, oriented to person/place/time, CN's grossly intact, no focal deficits SKIN: No rash, wounds PSYCH: Normal mood, normal affect Results Laboratory Results: 11/28/16 05:11 11/28/16 05:11 11/27/16 11/27/16 11/28/16 11:43 13:00 05:11 WBC 3.5 L RBC 3.55 L Hgb 11.7 L Hct 34.7 L MCV 98 H MCH 32.9 MCHC 33.7 RDW 16.2 H Plt Count 68 L Seg Neutrophils % Not Reportable Lymphocytes % Not Reportable Monocytes % Not Reportable Eosinophils % Not Reportable Basophils % Not Reportable Absolute Neutrophils Not Reportable Absolute Lymphocytes Not Reportable Absolute Monocytes Not Reportable Absolute Eosinophils Not Reportable Absolute Basophils Not Reportable Sodium Potassium Chloride Carbon Dioxide Anion Gap BUN Creatinine Est GFR ( Amer) Est GFR (Non-Af Amer) Glucose Calcium Urine Color BARRY Urine Appearance SLIGHTLY-CLOUDY Urine pH 5.0 Ur Specific [place] 1.023 Urine Protein 30 H Urine Glucose (UA) NEGATIVE Urine Ketones TRACE H Urine Blood SMALL H Urine Nitrite NEGATIVE Ur Leukocyte Esterase NEGATIVE Urine WBC (Auto) 5 Urine RBC (Auto) 1 Fluid Type PLEURAL Fluid Source Fluid Color DARK YELLOW Fluid Appearance HAZY Fluid Viscosity LIQUID Fluid WBC 56 Fluid RBC 2675 11/28/16 05:11 WBC RBC Hgb Hct MCV MCH MCHC RDW Plt Count Seg Neutrophils % Lymphocytes % Monocytes % Eosinophils % Basophils % Absolute Neutrophils Absolute Lymphocytes Absolute Monocytes Absolute Eosinophils Absolute Basophils Sodium 135.5 L Potassium 3.6 Chloride 95 L Carbon Dioxide 27 Anion Gap 14 BUN 39 H Creatinine 4.48 H Est GFR ( Amer) 11 L Est GFR (Non-Af Amer) 10 L Glucose 197 H Calcium 8.0 L Urine Color Urine Appearance Urine pH Ur Specific [place] Urine Protein Urine Glucose (UA) Urine Ketones Urine Blood Urine Nitrite Ur Leukocyte Esterase Urine WBC (Auto) Urine RBC (Auto) Fluid Type Fluid Source Fluid Color Fluid Appearance Fluid Viscosity Fluid WBC Fluid RBC Impressions: Thoracentesis Ultrasound 11/27/16 00:07 IMPRESSION: SUCCESSFUL THORACENTESIS USING ULTRASOUND GUIDANCE. Chest X-Ray 11/27/16 13:55 IMPRESSION: STABLE APPEARANCE OF THE CHEST. NO PNEUMOTHORAX FOLLOWING THORACENTESIS. Assessment & Plan - Diagnosis (1) Acute on chronic respiratory failure with hypoxemia Is this a current diagnosis for this admission?: YesPlan: Continue alternating BiPAP with nasal cannula oxygen supplementation as tolerated. Patient may need home oxygen. I would like to check CT of chest secondary to abnormal chest x-ray. This will have to be a noncontrasted study secondary to end-stage renal disease. (2) Bilateral pleural effusion Is this a current diagnosis for this admission?: YesPlan: Patient is status post diagnostic and therapeutic thoracentesis on 11/27/2016 with removal of 1200 mL fluid. Fluid had high RBC count. Will send for cytology. We'll check CT scan of chest. Consult Dr. Locke of pulmonary medicine. It would be difficult to say that patient does not have airspace disease based on chest x-ray. Cultures have been negative so I will discontinue IV antibiotics. I would like to continue oral doxycycline. (3) Bleeding from shunt Is this a current diagnosis for this admission?: Yes (4) Chronic congestive heart failure Qualifiers: Congestive heart failure type: combined Qualified Code(s): I50.42 - Chronic combined systolic (congestive) and diastolic (congestive) heart failure Is this a current diagnosis for this admission?: YesPlan: Continue metoprolol. Continue to maintain fluid balance with hemodialysis. (5) ESRD (end stage renal disease) on dialysis Is this a current diagnosis for this admission?: YesPlan: Patient is on hemodialysis and is being followed by Dr. Quach of nephrology. (6) Diabetes mellitus, type II Is this a current diagnosis for this admission?: YesPlan: Resume home dose of Lantus 15 units subcutaneous nightly. Continue sliding scale insulin. (7) Thrombocytopenia Is this a current diagnosis for this admission?: Yes (8) Secondary hyperparathyroidism (of renal origin) Is this a current diagnosis for this admission?: Yes (9) Seizure disorder Is this a current diagnosis for this admission?: YesPlan: Resume home dose of Dilantin and phenobarbital. (10) Hypothyroid Is this a current diagnosis for this admission?: YesPlan: Resume Synthroid. (11) Coronary artery disease Qualifiers: Coronary Disease-Associated Artery/Lesion type: unspecified vessel or lesion type [place] vs. transplanted heart: [place] heart Associated angina: angina presence unspecified Qualified Code(s): I25.10 - Atherosclerotic heart disease of [place] coronary artery without angina pectoris Is this a current diagnosis for this admission?: YesPlan: Continue atorvastatin and metoprolol. Patient is too thrombocytopenia to be on antiplatelet agent at this time. (12) DNR (do not resuscitate) Is this a current diagnosis for this admission?: Yes - Time Time Spent with patient: 35 or more minutes
[2016-11-28] MEDS ORDERED: DOXYCYCLINE HYCLATE 100 MG TABLET PO ONE (13:00)
[2016-11-28] MEDS: FOLIC ACID/VITAMIN B COMP W-C CAPSULE PO SCH (15:20)
--- NOTE | 2016-11-28 18:27 | PDOC PROGRESS REPORT ---
Subjective Progress Note for:: 11/28/16 Subjective:: Patient was seen in the ICU. Patient is having respiratory distress and is on BiPAP. I'm covering Dr. Sprague and seeing on dialysis. She is currently undergoing dialysis without any issues. Plans to remove it in 2 and 3 L as tolerated. Even though she has been hypotensive and in the last few days her blood pressure is currently holding and she is quite edematous and that she is allowing ultrafiltration to happen without difficulties in maintaining blood pressure. Chart was reviewed and discussions were done the treating nurse. She has had a CT scan done today which shows a large right pleural effusion and possible right pneumonia. Patient currently is on oral antibiotics. Physical Exam Vital Signs: Temp Pulse Resp BP Pulse Ox 98.6 F 88 25 H 99/45 L 99 11/28/16 11:25 11/28/16 13:51 11/28/16 13:51 11/28/16 11:25 11/28/16 13:51 Intake & Output 11/27/16 11/28/16 11/29/16 06:59 06:59 06:59 Intake Total 510 770 437 Output Total 3701 Balance -3191 770 437 Weight 78.4 kg 76.2 kg 76.2 kg General appearance: PRESENT: mild distress Exam: On BiPAP. Respiratory exam: PRESENT: clear to auscultation radha, crackles - In both mid zone lung gaytan in the infra-axillary region., decreased breath sounds. ABSENT : rhonchi Cardiovascular exam: PRESENT: +S1, +S2, systolic murmur GI/Abdominal exam: PRESENT: normal bowel sounds, soft. ABSENT: diminished bowel sounds, firm, tenderness Extremities exam: PRESENT: +1 edema - Venous stasis changes. Skin exam: PRESENT: rash - Stasis changes in both lower extremities. Results Laboratory Results: 11/28/16 05:11 11/28/16 05:11 11/28/16 11/28/16 05:11 05:11 WBC 3.5 L RBC 3.55 L Hgb 11.7 L Hct 34.7 L MCV 98 H MCH 32.9 MCHC 33.7 RDW 16.2 H Plt Count 68 L Seg Neutrophils % Not Reportable Lymphocytes % Not Reportable Monocytes % Not Reportable Eosinophils % Not Reportable Basophils % Not Reportable Absolute Neutrophils Not Reportable Absolute Lymphocytes Not Reportable Absolute Monocytes Not Reportable Absolute Eosinophils Not Reportable Absolute Basophils Not Reportable Sodium 135.5 L Potassium 3.6 Chloride 95 L Carbon Dioxide 27 Anion Gap 14 BUN 39 H Creatinine 4.48 H Est GFR ( Amer) 11 L Est GFR (Non-Af Amer) 10 L Glucose 197 H Calcium 8.0 L Impressions: Thoracentesis Ultrasound 11/27/16 00:07 IMPRESSION: SUCCESSFUL THORACENTESIS USING ULTRASOUND GUIDANCE. Chest X-Ray 11/27/16 13:55 IMPRESSION: STABLE APPEARANCE OF THE CHEST. NO PNEUMOTHORAX FOLLOWING THORACENTESIS. Chest CT 11/28/16 00:00 IMPRESSION: Rapid re-accumulation of a large right pleural effusion Right middle and lower lobe airspace disease edema versus pneumonia Assessment & Plan - Diagnosis (1) Respiratory failure Plan: Currently maintaining sats on BiPAP . She has a large left pleural effusion and a right pneumonia. He also has acute on chronic congestive heart failure. She should respond partially to ultrafiltration between 2 and 3 L today on dialysis. Further management as per hospitalist. (2) Anemia in chronic kidney disease (CKD) Is this a current diagnosis for this admission?: YesPlan: Holding off erythropoietin given a hemoglobin today of 11.7. (3) Chronic congestive heart failure Qualifiers: Congestive heart failure type: combined Qualified Code(s): I50.42 - Chronic combined systolic (congestive) and diastolic (congestive) heart failure Is this a current diagnosis for this admission?: YesPlan: As per hospitalist. How she responds to ultrafiltration on hemodialysis today. (4) Diabetes mellitus, type II Is this a current diagnosis for this admission?: Yes (5) Hypokalemia Is this a current diagnosis for this admission?: YesPlan: Currently stable. She is on a 3K bath. (6) ESRD (end stage renal disease) on dialysis Is this a current diagnosis for this admission?: YesPlan: Undergoing dialysis. Discuss orders with Gini the treating dialysis. She is tolerating ultrafiltration and should help her with her heart failure. I believe further respiratory failure could be tackled with the treatment of the pneumonia and possible paracentesis of 4 large left pleural effusion. Dr. Quach will be back to take over her management on Thursday.
[2016-11-28] MEDS: DOXYCYCLINE HYCLATE 100 MG TABLET PO SCH (21:36)
[2016-11-28] MEDS: PHENYTOIN SODIUM EXTENDED 100 MG CAPSULE PO SCH (21:39)
[2016-11-28] MEDS: ATORVASTATIN CALCIUM 20 MG TABLET PO SCH (21:39)
[2016-11-28] MEDS: INSULIN GLARGINE,HUM.REC.ANLOG 300 UNIT/3 ML INSULN.PEN SUBCUT SCH (21:39)
[2016-11-29] MEDS: IPRATROPIUM/ALBUTEROL 0.5-2.5 MG/3 ML AMPUL NEB SCH ×4 (01:42→20:23)
[2016-11-29] MEDS: METOPROLOL TARTRATE 25 MG TABLET PO SCH (10:38)
[2016-11-29] MEDS: LEVOTHYROXINE SODIUM 0.05 MG TABLET PO SCH (10:39)
[2016-11-29] MEDS: DOXYCYCLINE HYCLATE 100 MG TABLET PO SCH ×2 (10:39→22:50)
[2016-11-29] MEDS: PHENYTOIN SODIUM EXTENDED 100 MG CAPSULE PO SCH ×2 (10:39→22:50)
[2016-11-29] MEDS: PREDNISONE 20 MG TABLET PO SCH (10:39)
[2016-11-29] MEDS: PHENOBARBITAL 64.8 MG TABLET PO SCH (10:39)
--- NOTE | 2016-11-29 11:11 | PDOC CONSULTATION ---
Consultation Consult Date: 11/29/16 Attending physician:: ALKA WHALEN Consult reason:: dyspnea History of Present Illness Admission Date/PCP: 11/25/16 20:55 MELDOY ARCINIEGA MD History of Present Illness: BRANT ELLISON is a 76 year old female, with end-stage renal disease , having completed her most recent dialysis session earlier the day of admission who presents with complaints of from her dialysis access site, along with a 2 or 3 day history of slowly progressive shortness of breath. Nothing in particular made the shortness of breath worse. Chronic dry cough, without recent change.She admits to cough but denies hemoptysis.Her PPD was neg as a child.Denies hx of chronic lung disease as a child or adolecent.Admits to exspore to passive smoke as a child and as a adult.She denies she has ever smoked.@ cats ,no recent travel.Admits to snoring,restless sleep unrestful sleep and daytime somulence. Past Medical History Cardiac Medical History: Reports: Congestive Heart Failure, Coronary Artery Disease, Myocardial Infarction, Hyperlipidema, Hypertension Pulmonary Medical History: Denies: Asthma, Bronchitis, Chronic Obstructive Pulmonary Disease (COPD), Pneumonia, Sleep Apnea Neurological Medical History: Reports: Seizures - last episode 01/06, Other - History of TIA Endocrine Medical History: Reports: Diabetes Mellitus Type 2, Hypothyroidism Renal/ Medical History: Reports: End Stage Renal Disease GI Medical History: Denies: Cirrhosis, Gastroesophageal Reflux Disease, Hepatitis, Peptic Ulcer Disease Musculoskeltal Medical History: Denies: Arthritis Psychiatric Medical History: Reports: Depression, General Anxiety Disorder Denies: Alcohol Dependency, Substance Abuse, Tobacco Dependency Hematology: Reports: Anemia Infectious Medical History: Denies: Clostridium Difficile, Hepatitis B, Hepatitis C, Methicillin- Resistant Staph Aureus Past Surgical History Past Surgical History: Reports: Section - STENT, Cholecystectomy, Coronary Artery Bypass Graft - 3 vessel in 2009, Hysterectomy, Tonsillectomy - and adenoids, Other - Coronary stent placement in 2010, pacemaker placement in 2011 Social History Information Source: Patient, [facility] Records Lives with: Family Smoking Status: Never Smoker Passive smoke exposure as: Both Frequency of Alcohol Use: Rare Hx Recreational Drug Use: No Drugs: None Hx Prescription Drug Abuse: No Do you have pets?: Yes Have you had any respiratory illnesses as a child?: No Have you had any recent respiratory illnesses?: No Have you travelled outside of [place] in the past 12 months?: No - Advance Directive Resuscitation Status: Do Not Resuscitate - Implications of DO NOT RESUSCITATE/ DO NOT INTUBATE status discussed with [patient]. Discussed in layperson's terms. Implications understood. [ Patient ] is the health care decision maker. [Patient] conversation is lucid and appropriate. [Patient] desires DO NOT RESUSCITATE/DO NOT INTUBATE status. Will honor [patient] wishes. Family History Family History: Reviewed & Not Pertinent Parental Family History Reviewed: No Children Family History Reviewed: No Sibling(s) Family History Reviewed.: No Medication/Allergy Home Medications: Atorvastatin Calcium [Lipitor 20 mg Tablet] 20 mg PO QHS 11/26/16 Insulin Glargine,Hum.rec.anlog [Lantus Solostar] 15 unit SQ QHS 11/26/16 Levothyroxine Sodium [Synthroid 50 Mcg Tablet] 50 mcg PO DAILY 11/26/16 Metoprolol Tartrate [Lopressor 25 mg Tablet] 25 mg PO DAILY 11/26/16 Phenobarbital [Phenobarbital 64.8 Mg Tablet] 64.8 mg PO DAILY 11/26/16 Phenytoin Sodium Extended [Dilantin 100 mg Capsule.er] 100 mg PO QAM 11/26/16 Phenytoin Sodium Extended [Dilantin 100 mg Capsule.er] 200 mg PO QHS 11/26/16 Allergies/Adverse Reactions: Sulfa (Sulfonamide Antibiotics) Allergy (Severe, Verified 11/25/16 16:45) Rash Physical Exam Vital Signs: Temp Pulse Resp BP Pulse Ox 97.9 F 80 20 116/45 L 96 11/29/16 07:59 11/29/16 08:34 11/29/16 08:34 11/29/16 07:59 11/29/16 08:34 Intake & Output 11/28/16 11/29/16 11/30/16 06:59 06:59 06:59 Intake Total 770 447 Output Total 3100 Balance 770 -2653 Weight 76.2 kg 76 kg General appearance: PRESENT: cooperative, disheveled, mild distress, obese Head exam: PRESENT: atraumatic, normocephalic Eye exam: PRESENT: conjunctiva pale, EOMI Mouth exam: PRESENT: moist, neck supple, tongue midline Teeth exam: PRESENT: edentulous Neck exam: PRESENT: carotid bruit Respiratory exam: PRESENT: decreased breath sounds, prolonged expiratory phas, rales, rhonchi, symmetrical, other - wearing NIPPV Cardiovascular exam: PRESENT: RRR, +S1, +S2 Pulses: PRESENT: normal radial pulses GI/Abdominal exam: PRESENT: normal bowel sounds, soft. ABSENT: distended, guarding, mass, organolmegaly, rebound, tenderness Rectal exam: PRESENT: deferred Gentrourinary exam: PRESENT: indwelling catheter Musculoskeletal exam: PRESENT: normal inspection Neurological exam: PRESENT: alert, awake Psychiatric exam: PRESENT: normal mood Skin exam: PRESENT: dry, warm Results Laboratory Results: 11/28/16 05:11 11/28/16 05:11 Impressions: Thoracentesis Ultrasound 11/27/16 00:07 IMPRESSION: SUCCESSFUL THORACENTESIS USING ULTRASOUND GUIDANCE. Chest X-Ray 11/27/16 13:55 IMPRESSION: STABLE APPEARANCE OF THE CHEST. NO PNEUMOTHORAX FOLLOWING THORACENTESIS. Chest CT 11/28/16 00:00 IMPRESSION: Rapid re-accumulation of a large right pleural effusion Right middle and lower lobe airspace disease edema versus pneumonia Assessment & Plan - Diagnosis (1) Acute on chronic respiratory failure with hypoxemia Is this a current diagnosis for this admission?: YesPlan: ESK-EXV-Nrynphx effusion- COPD (2) Chronic congestive heart failure Qualifiers: Congestive heart failure type: combined Qualified Code(s): I50.42 - Chronic combined systolic (congestive) and diastolic (congestive) heart failure Is this a current diagnosis for this admission?: Yes (3) Thrombocytopenia Is this a current diagnosis for this admission?: Yes (4) COPD exacerbation Is this a current diagnosis for this admission?: YesPlan: pateint denied smoking to this observer but has admitted smoking and chest CT c /w emphysema change cpap-bipaphope to decrease WOB (5) Pleural effusion Is this a current diagnosis for this admission?: YesPlan: rapidly reoccured chest tube vs pleuradex cath
[2016-11-29] MEDS: INSULIN LISPRO 100 UNIT/ML 3 ML VIAL SUBCUT PRN ×3 (13:19→22:49)
--- NOTE | 2016-11-29 16:08 | PDOC PROGRESS REPORT ---
Subjective Progress Note for:: 11/29/16 Subjective:: Patient still has shortness of breath. She is currently on BiPAP and states that when she tries to come off of BiPAP after a while her breathing worsens and she has to go back on BiPAP again. She states that she does not wear oxygen outside of the hospital. Patient denies fever, chills, headache, new focal weakness, chest pain, abdominal pain, nausea, vomiting, diarrhea, constipation. Physical Exam Vital Signs: Temp Pulse Resp BP Pulse Ox 97.3 F 79 18 96/40 L 100 11/29/16 15:13 11/29/16 15:13 11/29/16 15:13 11/29/16 15:13 11/29/16 15:13 Intake & Output 11/28/16 11/29/16 11/30/16 06:59 06:59 06:59 Intake Total 770 447 118 Output Total 3100 Balance 770 -2653 118 Weight 76.2 kg 76 kg GENERAL: No acute distress HEENT: Conjunctiva clear, nonicteric, moist mucous membranes, no JVD, midline trachea RESPIRATORY: Bilateral anterior rhonchi R>L CARDIAC: Regular rate and rhythm, no murmurs/gallops/rubs ABDOMEN: Soft, nondistended, nontender, positive bowel sounds, no rebound, no guarding EXTREMETIES: No edema, cyanosis, clubbing NEUROLOGIC: Alert, oriented to person/place/time, CN's grossly intact, no focal deficits SKIN: No rash, wounds PSYCH: Normal mood, normal affect Results Laboratory Results: 11/28/16 05:11 11/28/16 05:11 Impressions: Thoracentesis Ultrasound 11/27/16 00:07 IMPRESSION: SUCCESSFUL THORACENTESIS USING ULTRASOUND GUIDANCE. Chest X-Ray 11/27/16 13:55 IMPRESSION: STABLE APPEARANCE OF THE CHEST. NO PNEUMOTHORAX FOLLOWING THORACENTESIS. Chest CT 11/28/16 00:00 IMPRESSION: Rapid re-accumulation of a large right pleural effusion Right middle and lower lobe airspace disease edema versus pneumonia Assessment & Plan - Diagnosis (1) Acute on chronic respiratory failure with hypoxemia Is this a current diagnosis for this admission?: YesPlan: Likely multifactorial to include COPD, CHF, pleural effusion, pneumonia. Continue alternating BiPAP with nasal cannula oxygen supplementation as tolerated. Patient may need home oxygen. (2) Bilateral pleural effusion Is this a current diagnosis for this admission?: YesPlan: Patient is status post diagnostic and therapeutic thoracentesis on 11/27/2016 with removal of 1200 mL fluid. Fluid had high RBC count. Will send for cytology. Follow-up CT scan showed reaccumulation of right pleural effusion. Dr. Locke of pulmonary medicine consultation. Case also discussed with Dr. Morrell of surgery. Surgery feels the patient would benefit from interventional radiology placement of Pleurx catheter for recurrent drainage. His lungs patient remained stable this can be done on Thursday. (3) Pneumonia Is this a current diagnosis for this admission?: YesPlan: Likely bacterial. Continue doxycycline day #2/. Blood cultures and pleural fluid culture no growth. (4) Bleeding from shunt Is this a current diagnosis for this admission?: Yes (5) Chronic congestive heart failure Qualifiers: Congestive heart failure type: combined Qualified Code(s): I50.42 - Chronic combined systolic (congestive) and diastolic (congestive) heart failure Is this a current diagnosis for this admission?: YesPlan: Continue metoprolol. Continue to maintain fluid balance with hemodialysis. (6) ESRD (end stage renal disease) on dialysis Is this a current diagnosis for this admission?: YesPlan: Patient is on hemodialysis and is being followed by Dr. Quach of nephrology. (7) Diabetes mellitus, type II Is this a current diagnosis for this admission?: YesPlan: Continue Lantus 15 units subcutaneous nightly. Continue sliding scale insulin. (8) Thrombocytopenia Is this a current diagnosis for this admission?: YesPlan: Check heparin-induced thrombocytopenia panel. (9) Secondary hyperparathyroidism (of renal origin) Is this a current diagnosis for this admission?: Yes (10) Seizure disorder Is this a current diagnosis for this admission?: YesPlan: Continue Dilantin and phenobarbital. (11) Hypothyroid Is this a current diagnosis for this admission?: YesPlan: Synthroid. (12) Coronary artery disease Qualifiers: Coronary Disease-Associated Artery/Lesion type: unspecified vessel or lesion type [place] vs. transplanted heart: [place] heart Associated angina: angina presence unspecified Qualified Code(s): I25.10 - Atherosclerotic heart disease of [place] coronary artery without angina pectoris Is this a current diagnosis for this admission?: YesPlan: Continue atorvastatin and metoprolol. Patient is too thrombocytopenia to be on antiplatelet agent at this time. (13) DNR (do not resuscitate) Is this a current diagnosis for this admission?: Yes - Time Time Spent with patient: 35 or more minutes Anticipated discharge: Home with Homehealth Within: Other - When respiratory status stable
[2016-11-29] MEDS: FOLIC ACID/VITAMIN B COMP W-C CAPSULE PO SCH (17:03)
[2016-11-29] MEDS: INSULIN GLARGINE,HUM.REC.ANLOG 300 UNIT/3 ML INSULN.PEN SUBCUT SCH (22:49)
[2016-11-29] MEDS: ATORVASTATIN CALCIUM 20 MG TABLET PO SCH (22:49)
[2016-11-30] MEDS: IPRATROPIUM/ALBUTEROL 0.5-2.5 MG/3 ML AMPUL NEB SCH ×4 (02:30→20:41)
[2016-11-30 06:30] LABS: ABSOLUTE LYMPHOCYTES (AUTO) 0.5 10^3/uL (0.5-4.7); ABSOLUTE MONOCYTES (AUTO) 0.5 10^3/uL (0.1-1.4); ABSOLUTE NEUT (AUTO) 2.5 10^3/uL (1.7-8.2); BASOPHILS % (AUTO) 0.5 % (0-2); HEMOGLOBIN 10.8 g/dL (12.0-15.5); HGB HCT DIFFERENCE 0.4; LYMPHOCYTES % (AUTO) 13.8 % (13-45); MEAN CORPUSCULAR HEMOGLOBIN 32.6 pg (27.0-33.4); MEAN CORPUSCULAR HGB CONC 33.8 g/dL (32.0-36.0); MEAN CORPUSCULAR VOLUME 97 fl (80-97); MONOCYTES % (AUTO) 14.1 % (3-13); RED BLOOD COUNT 3.32 10^6/uL (3.72-5.28); RED CELL DISTRIBUTION WIDTH 15.4 % (11.5-14.0); SEGMENTED NEUTROPHILS % (AUTO) 71.6 % (42-78); WHITE BLOOD COUNT 3.5 10^3/uL (4.0-10.5)
[2016-11-30 07:38] LABS: ANION GAP 14 (5-19); BLOOD UREA NITROGEN 43 mg/dL (7-20); CALCIUM 7.9 mg/dL (8.4-10.2); CARBON DIOXIDE 26 mmol/L (22-30); CHLORIDE 97 mmol/L (98-107); CREATININE RESULT 4.88 mg/dL (0.52-1.25); GLUCOSE 222 mg/dL (75-110); POTASSIUM 3.3 mmol/L (3.6-5.0); SODIUM 137.3 mmol/L (137-145)
[2016-11-30] MEDS: INSULIN LISPRO 100 UNIT/ML 3 ML VIAL SUBCUT PRN ×4 (07:58→22:00)
[2016-11-30] MEDS: METOPROLOL TARTRATE 25 MG TABLET PO SCH (10:40)
[2016-11-30] MEDS: LEVOTHYROXINE SODIUM 0.05 MG TABLET PO SCH (10:41)
[2016-11-30] MEDS: PHENYTOIN SODIUM EXTENDED 100 MG CAPSULE PO SCH ×2 (10:41→21:59)
[2016-11-30] MEDS: PREDNISONE 20 MG TABLET PO SCH (10:41)
[2016-11-30] MEDS: PHENOBARBITAL 64.8 MG TABLET PO SCH (10:41)
[2016-11-30] MEDS: DOXYCYCLINE HYCLATE 100 MG TABLET PO SCH ×2 (10:41→21:58)
--- NOTE | 2016-11-30 17:21 | PDOC PROGRESS REPORT ---
Subjective Progress Note for:: 11/30/16 Subjective:: Patient shortness of breath is much improved since hemodialysis yesterday. She is now off BiPAP and stable on nasal cannula oxygen. Patient denies fever, chills, headache, new focal weakness, chest pain, abdominal pain, nausea, vomiting, diarrhea, constipation. Physical Exam Vital Signs: Temp Pulse Resp BP Pulse Ox 98.2 F 74 20 106/54 L 98 11/30/16 15:12 11/30/16 15:12 11/30/16 15:12 11/30/16 15:12 11/30/16 15:12 Intake & Output 11/29/16 11/30/16 12/01/16 06:59 06:59 06:59 Intake Total 447 877 237 Output Total 3100 0 Balance -2653 877 237 Weight 76 kg 74.2 kg GENERAL: No acute distress HEENT: Conjunctiva clear, nonicteric, moist mucous membranes, no JVD, midline trachea RESPIRATORY: Scattered posterior bilateral rhonchi, good air excursion CARDIAC: Regular rate and rhythm, no murmurs/gallops/rubs ABDOMEN: Soft, nondistended, nontender, positive bowel sounds, no rebound, no guarding EXTREMETIES: No edema, cyanosis, clubbing NEUROLOGIC: Alert, oriented to person/place/time, CN's grossly intact, no focal deficits SKIN: No rash, wounds PSYCH: Normal mood, normal affect Results Laboratory Results: 11/30/16 05:42 11/30/16 07:09 11/30/16 11/30/16 11/30/16 05:42 05:42 07:09 WBC 3.5 L RBC 3.32 L Hgb 10.8 L Hct 32.0 L MCV 97 MCH 32.6 MCHC 33.8 RDW 15.4 H Plt Count 73 L Seg Neutrophils % 71.6 Lymphocytes % 13.8 Monocytes % 14.1 H Eosinophils % 0.0 Basophils % 0.5 Absolute Neutrophils 2.5 Absolute Lymphocytes 0.5 Absolute Monocytes 0.5 Absolute Eosinophils 0.0 Absolute Basophils 0.0 Sodium Cancelled 137.3 Potassium Cancelled 3.3 L Chloride Cancelled 97 L Carbon Dioxide Cancelled 26 Anion Gap Cancelled 14 BUN Cancelled 43 H Creatinine Cancelled 4.88 H Est GFR ( Amer) Cancelled 10 L Est GFR (Non-Af Amer) Cancelled 9 L Glucose Cancelled 222 H Calcium Cancelled 7.9 L 11/27/16 13:00 Clean Catch Midstream Urine Culture - Final Enterococcus Faecalis(Group D) Escherichia Coli Impressions: Thoracentesis Ultrasound 11/27/16 00:07 IMPRESSION: SUCCESSFUL THORACENTESIS USING ULTRASOUND GUIDANCE. Chest CT 11/28/16 00:00 IMPRESSION: Rapid re-accumulation of a large right pleural effusion Right middle and lower lobe airspace disease edema versus pneumonia Chest X-Ray 11/30/16 06:00 IMPRESSION: Persistent basilar consolidation, volume loss and pleural fluid. Pleural effusion looks worse compared to 11/27/2016 radiograph but is perhaps decreased compared to the subsequent chest CT from 11/28/2016. Assessment & Plan - Diagnosis (1) Acute on chronic respiratory failure with hypoxemia Is this a current diagnosis for this admission?: YesPlan: Likely multifactorial to include COPD, CHF, pleural effusion, pneumonia. Much improved following hemodialysis yesterday. Patient may require home oxygen. (2) Bilateral pleural effusion Is this a current diagnosis for this admission?: YesPlan: Patient is status post diagnostic and therapeutic thoracentesis on 11/27/2016 with removal of 1200 mL fluid. Fluid had high RBC count. Will send for cytology. Follow-up CT scan showed reaccumulation of right pleural effusion. Dr. Locke of pulmonary medicine consultation. Case also discussed with Dr. Morrell of surgery. Surgery feels the patient would benefit from interventional radiology placement of Pleurx catheter for recurrent drainage. Pleural effusion improved on chest x-ray after hemodialysis. Continue to maintain fluid balance with hemodialysis in order to prevent reaccumulation. If fluid reaccumulate some patient may need Pleurx catheter placement. (3) Pneumonia Is this a current diagnosis for this admission?: YesPlan: Likely bacterial. Continue doxycycline day #3/10. Blood cultures and pleural fluid culture no growth. (4) Bleeding from shunt Is this a current diagnosis for this admission?: Yes (5) Chronic congestive heart failure Qualifiers: Congestive heart failure type: combined Qualified Code(s): I50.42 - Chronic combined systolic (congestive) and diastolic (congestive) heart failure Is this a current diagnosis for this admission?: YesPlan: Continue metoprolol. Continue to maintain fluid balance with hemodialysis. (6) ESRD (end stage renal disease) on dialysis Is this a current diagnosis for this admission?: YesPlan: Patient is on hemodialysis and is being followed by Dr. Quach of nephrology. (7) Diabetes mellitus, type II Is this a current diagnosis for this admission?: YesPlan: Continue Lantus 15 units subcutaneous nightly. Continue sliding scale insulin. (8) Thrombocytopenia Is this a current diagnosis for this admission?: YesPlan: Check heparin-induced thrombocytopenia panel. (9) Secondary hyperparathyroidism (of renal origin) Is this a current diagnosis for this admission?: Yes (10) Seizure disorder Is this a current diagnosis for this admission?: YesPlan: Continue Dilantin and phenobarbital. (11) Hypothyroid Is this a current diagnosis for this admission?: YesPlan: Synthroid. (12) Coronary artery disease Qualifiers: Coronary Disease-Associated Artery/Lesion type: unspecified vessel or lesion type [place] vs. transplanted heart: [place] heart Associated angina: angina presence unspecified Qualified Code(s): I25.10 - Atherosclerotic heart disease of [place] coronary artery without angina pectoris Is this a current diagnosis for this admission?: YesPlan: Continue atorvastatin and metoprolol. Patient is too thrombocytopenia to be on antiplatelet agent at this time. (13) DNR (do not resuscitate) Is this a current diagnosis for this admission?: Yes (14) Weakness Is this a current diagnosis for this admission?: YesPlan: Physical therapy to evaluate. Patient already has home health services through [facility], but may benefit from home physical therapy as well. - Time Time Spent with patient: 35 or more minutes
[2016-11-30] MEDS: FOLIC ACID/VITAMIN B COMP W-C CAPSULE PO SCH (17:41)
[2016-11-30 21:52] LABS: HEMATOCRIT 34.5 % (36.0-47.0); HEMOGLOBIN 11.5 g/dL (12.0-15.5); MEAN CORPUSCULAR HEMOGLOBIN 32.6 pg (27.0-33.4); MEAN CORPUSCULAR HGB CONC 33.3 g/dL (32.0-36.0); MEAN CORPUSCULAR VOLUME 98 fl (80-97); RED BLOOD COUNT 3.53 10^6/uL (3.72-5.28); RED CELL DISTRIBUTION WIDTH 15.6 % (11.5-14.0); WHITE BLOOD COUNT 3.7 10^3/uL (4.0-10.5)
[2016-11-30] MEDS: ATORVASTATIN CALCIUM 20 MG TABLET PO SCH (21:58)
[2016-11-30] MEDS: INSULIN GLARGINE,HUM.REC.ANLOG 300 UNIT/3 ML INSULN.PEN SUBCUT SCH (21:59)
[2016-12-01] MEDS: IPRATROPIUM/ALBUTEROL 0.5-2.5 MG/3 ML AMPUL NEB SCH ×4 (02:21→19:56)
[2016-12-01 07:49] LABS: ABSOLUTE LYMPHOCYTES (AUTO) 0.8 10^3/uL (0.5-4.7); ABSOLUTE MONOCYTES (AUTO) 0.5 10^3/uL (0.1-1.4); ABSOLUTE NEUT (AUTO) 3.3 10^3/uL (1.7-8.2); BASOPHILS % (AUTO) 0.5 % (0-2); EOSINOPHILS % (AUTO) 0.5 % (0-6); HEMATOCRIT 35.6 % (36.0-47.0); HEMOGLOBIN 12.1 g/dL (12.0-15.5); HGB HCT DIFFERENCE 0.7; LYMPHOCYTES % (AUTO) 16.6 % (13-45); MEAN CORPUSCULAR HEMOGLOBIN 32.9 pg (27.0-33.4); MEAN CORPUSCULAR VOLUME 97 fl (80-97); MONOCYTES % (AUTO) 11.7 % (3-13); RED BLOOD COUNT 3.68 10^6/uL (3.72-5.28); RED CELL DISTRIBUTION WIDTH 15.4 % (11.5-14.0); SEGMENTED NEUTROPHILS % (AUTO) 70.7 % (42-78); WHITE BLOOD COUNT 4.6 10^3/uL (4.0-10.5)
[2016-12-01 07:59] LABS: PROTHROMBIN TIME 14.5 SEC (11.4-15.4)
[2016-12-01 08:00] LABS: PARTIAL THROMBOPLASTIN TIME 31.2 SEC (23.5-35.8)
[2016-12-01 08:01] LABS: ANION GAP 16 (5-19); BLOOD UREA NITROGEN 52 mg/dL (7-20); CALCIUM 7.9 mg/dL (8.4-10.2); CARBON DIOXIDE 27 mmol/L (22-30); CHLORIDE 92 mmol/L (98-107); CREATININE RESULT 5.67 mg/dL (0.52-1.25); GLUCOSE 97 mg/dL (75-110); POTASSIUM 3.2 mmol/L (3.6-5.0); SODIUM 134.9 mmol/L (137-145)
[2016-12-01] MEDS: PHENYTOIN SODIUM EXTENDED 100 MG CAPSULE PO SCH ×2 (08:36→21:13)
[2016-12-01] MEDS: LEVOTHYROXINE SODIUM 0.05 MG TABLET PO SCH (11:26)
[2016-12-01] MEDS: PHENOBARBITAL 64.8 MG TABLET PO SCH (11:26)
[2016-12-01] MEDS: PREDNISONE 20 MG TABLET PO SCH (11:26)
[2016-12-01] MEDS: METOPROLOL TARTRATE 25 MG TABLET PO SCH (11:26)
[2016-12-01] MEDS: DOXYCYCLINE HYCLATE 100 MG TABLET PO SCH ×2 (11:26→21:13)
[2016-12-01] MEDS: FOLIC ACID/VITAMIN B COMP W-C CAPSULE PO SCH (16:33)
--- NOTE | 2016-12-01 16:47 | PDOC PROGRESS REPORT ---
Subjective Progress Note for:: 12/01/16 Subjective:: about the same Physical Exam Vital Signs: Temp Pulse Resp BP Pulse Ox 98.0 F 91 20 126/48 H 97 12/01/16 13:37 12/01/16 14:00 12/01/16 13:57 12/01/16 13:37 12/01/16 13:57 Intake & Output 11/30/16 12/01/16 12/02/16 06:59 06:59 06:59 Intake Total 877 1053 118 Output Total 0 0 3100 Balance 877 1053 -2982 Weight 74.2 kg 74.7 kg General appearance: PRESENT: no acute distress, disheveled, morbidly obese Head exam: PRESENT: atraumatic, normocephalic Eye exam: PRESENT: conjunctiva pale, EOMI Mouth exam: PRESENT: moist, neck supple Neck exam: ABSENT: carotid bruit, JVD, lymphadenopathy, thyromegaly Respiratory exam: PRESENT: decreased breath sounds, prolonged expiratory phas, rales, rhonchi, symmetrical, unlabored Cardiovascular exam: PRESENT: irregular rhythm Pulses: PRESENT: normal radial pulses GI/Abdominal exam: PRESENT: normal bowel sounds, soft. ABSENT: distended, guarding, mass, organolmegaly, rebound, tenderness Rectal exam: PRESENT: deferred Gentrourinary exam: PRESENT: indwelling catheter Extremities exam: PRESENT: +1 edema Neurological exam: PRESENT: awake Psychiatric exam: PRESENT: normal mood Skin exam: PRESENT: dry, warm Results Laboratory Results: 12/01/16 07:40 12/01/16 07:40 11/30/16 12/01/16 12/01/16 21:20 07:40 07:40 WBC 3.7 L 4.6 RBC 3.53 L 3.68 L Hgb 11.5 L 12.1 Hct 34.5 L 35.6 L MCV 98 H 97 MCH 32.6 32.9 MCHC 33.3 34.0 RDW 15.6 H 15.4 H Plt Count 88 L 114 L Seg Neutrophils % 70.7 Lymphocytes % 16.6 Monocytes % 11.7 Eosinophils % 0.5 Basophils % 0.5 Absolute Neutrophils 3.3 Absolute Lymphocytes 0.8 Absolute Monocytes 0.5 Absolute Eosinophils 0.0 Absolute Basophils 0.0 Sodium 134.9 L Potassium 3.2 L Chloride 92 L Carbon Dioxide 27 Anion Gap 16 BUN 52 H Creatinine 5.67 H Est GFR ( Amer) 9 L Est GFR (Non-Af Amer) 7 L Glucose 97 Calcium 7.9 L 11/27/16 11:43 Pleural Fluid Gram Stain - Final 11/27/16 11:43 Pleural Fluid Body Fluid Culture - Final NO AEROBIC OR ANAEROBIC ORGANISMS RECOVERED 11/26/16 07:15 Blood Blood Culture - Final NO GROWTH IN 5 DAYS 11/25/16 23:20 Blood Blood Culture - Final NO GROWTH IN 5 DAYS 11/27/16 13:00 Clean Catch Midstream Urine Culture - Final Enterococcus Faecalis(Group D) Escherichia Coli Impressions: Thoracentesis Ultrasound 11/27/16 00:07 IMPRESSION: SUCCESSFUL THORACENTESIS USING ULTRASOUND GUIDANCE. Chest CT 11/28/16 00:00 IMPRESSION: Rapid re-accumulation of a large right pleural effusion Right middle and lower lobe airspace disease edema versus pneumonia Chest X-Ray 12/01/16 06:00 IMPRESSION: No change, with stable consolidation at both lung bases and bilateral small pleural effusions Assessment & Plan - Diagnosis (1) Acute on chronic respiratory failure with hypoxemia Is this a current diagnosis for this admission?: YesPlan: [id number] effusion- COPD going for dialysis (2) Chronic congestive heart failure Qualifiers: Congestive heart failure type: combined Qualified Code(s): I50.42 - Chronic combined systolic (congestive) and diastolic (congestive) heart failure Is this a current diagnosis for this admission?: Yes (3) Thrombocytopenia Is this a current diagnosis for this admission?: YesPlan: Platelet count is slightly improved (4) COPD exacerbation Is this a current diagnosis for this admission?: YesPlan: Consider adding Xopenex and Daliresp to medical regimen (5) Pleural effusion Is this a current diagnosis for this admission?: YesPlan: Unchanged
--- NOTE | 2016-12-01 18:25 | PDOC PROGRESS REPORT ---
Subjective Progress Note for:: 12/01/16 Subjective:: Patient shortness of breath is much improved since admission. Nursing noted slight jaundice appearance to patient's sclera. Hemodialysis nurse states that 3.1 L were taken off with dialysis today. Patient denies fever, chills, headache, new focal weakness, chest pain, abdominal pain, nausea, vomiting, diarrhea, constipation. Physical Exam Vital Signs: Temp Pulse Resp BP Pulse Ox 97.5 F 90 21 H 111/45 L 100 12/01/16 15:28 12/01/16 15:28 12/01/16 15:28 12/01/16 15:28 12/01/16 15:28 Intake & Output 11/30/16 12/01/16 12/02/16 06:59 06:59 06:59 Intake Total 877 1053 118 Output Total 0 0 3100 Balance 877 1053 -2982 Weight 74.2 kg 74.7 kg GENERAL: No acute distress HEENT: Conjunctiva clear, mild scleral icterus, moist mucous membranes, no JVD, midline trachea RESPIRATORY: Clear to auscultation bilaterally CARDIAC: Regular rate and rhythm, no murmurs/gallops/rubs ABDOMEN: Soft, nondistended, nontender, positive bowel sounds, no rebound, no guarding EXTREMETIES: No edema, cyanosis, clubbing NEUROLOGIC: Alert, oriented to person/place/time, CN's grossly intact, no focal deficits SKIN: No rash, wounds PSYCH: Normal mood, normal affect Results Laboratory Results: 12/01/16 07:40 12/01/16 07:40 11/30/16 12/01/16 12/01/16 21:20 07:40 07:40 WBC 3.7 L 4.6 RBC 3.53 L 3.68 L Hgb 11.5 L 12.1 Hct 34.5 L 35.6 L MCV 98 H 97 MCH 32.6 32.9 MCHC 33.3 34.0 RDW 15.6 H 15.4 H Plt Count 88 L 114 L Seg Neutrophils % 70.7 Lymphocytes % 16.6 Monocytes % 11.7 Eosinophils % 0.5 Basophils % 0.5 Absolute Neutrophils 3.3 Absolute Lymphocytes 0.8 Absolute Monocytes 0.5 Absolute Eosinophils 0.0 Absolute Basophils 0.0 Sodium 134.9 L Potassium 3.2 L Chloride 92 L Carbon Dioxide 27 Anion Gap 16 BUN 52 H Creatinine 5.67 H Est GFR ( Amer) 9 L Est GFR (Non-Af Amer) 7 L Glucose 97 Calcium 7.9 L 11/27/16 11:43 Pleural Fluid Gram Stain - Final 11/27/16 11:43 Pleural Fluid Body Fluid Culture - Final NO AEROBIC OR ANAEROBIC ORGANISMS RECOVERED 11/26/16 07:15 Blood Blood Culture - Final NO GROWTH IN 5 DAYS 11/25/16 23:20 Blood Blood Culture - Final NO GROWTH IN 5 DAYS Impressions: Thoracentesis Ultrasound 11/27/16 00:07 IMPRESSION: SUCCESSFUL THORACENTESIS USING ULTRASOUND GUIDANCE. Chest CT 11/28/16 00:00 IMPRESSION: Rapid re-accumulation of a large right pleural effusion Right middle and lower lobe airspace disease edema versus pneumonia Chest X-Ray 12/01/16 06:00 IMPRESSION: No change, with stable consolidation at both lung bases and bilateral small pleural effusions Assessment & Plan - Diagnosis (1) Acute on chronic respiratory failure with hypoxemia Is this a current diagnosis for this admission?: YesPlan: Likely multifactorial to include COPD, CHF, pleural effusion, pneumonia. Patient may require home oxygen. (2) Bilateral pleural effusion Is this a current diagnosis for this admission?: YesPlan: Patient is status post diagnostic and therapeutic thoracentesis on 11/27/2016 with removal of 1200 mL fluid. Fluid had high RBC count. Will send for cytology. Patient has improved with fluid removal during dialysis. According to hemodialysis nurse patient has had approximately 13 L removed this admission. (3) Pneumonia Is this a current diagnosis for this admission?: YesPlan: Likely bacterial. Continue doxycycline until 12/06/2016. Blood cultures and pleural fluid culture no growth. (4) Bleeding from shunt Is this a current diagnosis for this admission?: YesPlan: Patient will need to follow-up with Dr. Casper of vascular surgery after discharge. (5) Chronic congestive heart failure Qualifiers: Congestive heart failure type: combined Qualified Code(s): I50.42 - Chronic combined systolic (congestive) and diastolic (congestive) heart failure Is this a current diagnosis for this admission?: YesPlan: Continue metoprolol. Continue to maintain fluid balance with hemodialysis. (6) ESRD (end stage renal disease) on dialysis Is this a current diagnosis for this admission?: YesPlan: Patient is on hemodialysis and is being followed by Dr. Quach of nephrology. (7) Diabetes mellitus, type II Is this a current diagnosis for this admission?: YesPlan: Continue Lantus 15 units subcutaneous nightly. Continue sliding scale insulin. (8) Thrombocytopenia Is this a current diagnosis for this admission?: YesPlan: Check heparin-induced thrombocytopenia panel. (9) Secondary hyperparathyroidism (of renal origin) Is this a current diagnosis for this admission?: Yes (10) Seizure disorder Is this a current diagnosis for this admission?: YesPlan: Continue Dilantin and phenobarbital. (11) Hypothyroid Is this a current diagnosis for this admission?: YesPlan: Synthroid. (12) Coronary artery disease Qualifiers: Coronary Disease-Associated Artery/Lesion type: unspecified vessel or lesion type [place] vs. transplanted heart: [place] heart Associated angina: angina presence unspecified Qualified Code(s): I25.10 - Atherosclerotic heart disease of [place] coronary artery without angina pectoris Is this a current diagnosis for this admission?: YesPlan: Continue atorvastatin and metoprolol. Patient is too thrombocytopenia to be on antiplatelet agent at this time. (13) Weakness Is this a current diagnosis for this admission?: YesPlan: Physical therapy to evaluate. Patient already has home health services through [facility], but may benefit from home physical therapy as well. (14) DNR (do not resuscitate) Is this a current diagnosis for this admission?: Yes (15) Jaundice Is this a current diagnosis for this admission?: YesPlan: Check liver function test. - Time Time Spent with patient: 35 or more minutes
--- NOTE | 2016-12-01 18:43 | PDOC PROGRESS REPORT ---
Subjective Progress Note for:: 12/01/16 Subjective:: I saw the patient during initiation of hemodialysis treatment this morning at around 8:50 AM. Patient remains to be short of breath although she claims she feels a little bit better. There was a reaccumulation of pleural fluid after that the diagnostic and therapeutic thoracentesis last November 27. It seems like her pleural effusion is Dr. were started. She still appears ill. Physical Exam Vital Signs: Temp Pulse Resp BP Pulse Ox 97.5 F 90 21 H 111/45 L 100 12/01/16 15:28 12/01/16 15:28 12/01/16 15:28 12/01/16 15:28 12/01/16 15:28 Intake & Output 11/30/16 12/01/16 12/02/16 06:59 06:59 06:59 Intake Total 877 1053 118 Output Total 0 0 3100 Balance 877 1053 -2982 Weight 74.2 kg 74.7 kg Vital signs during initiation of dialysis this morning: Blood pressure 115/51, heart rate of 80, temperature 90.8, respiratory rate of 15. Exam: General appearance: PRESENT: no acute distress, cooperative, well-developed, well-nourished Head exam: PRESENT: atraumatic, normocephalic Eye exam: PRESENT: conjunctiva pale, PERRLA. ABSENT: scleral icterus Neck exam: ABSENT: JVD Respiratory exam: PRESENT: Diminished breath sounds more on the right compared to the left side. ABSENT: crackles, rales, rhonchi, unlabored, wheezes Cardiovascular exam: PRESENT: Regular rate rhythm -+S1, +S2. ABSENT: diastolic murmur, systolic murmur GI/Abdominal exam: PRESENT: normal bowel sounds, soft. ABSENT: guarding, mass, tenderness Extremities exam: Baseline grade 1 bilateral pitting lower extremity edema Neurological exam: PRESENT: alert, awake, oriented to person, place and time. Skin exam: PRESENT: dry, warm, Cardiovascular exam: PRESENT: +S1, +S2, systolic murmur GI/Abdominal exam: PRESENT: normal bowel sounds, soft. ABSENT: diminished bowel sounds, firm, tenderness Results Laboratory Results: 12/01/16 07:40 12/01/16 07:40 11/30/16 12/01/16 12/01/16 21:20 07:40 07:40 WBC 3.7 L 4.6 RBC 3.53 L 3.68 L Hgb 11.5 L 12.1 Hct 34.5 L 35.6 L MCV 98 H 97 MCH 32.6 32.9 MCHC 33.3 34.0 RDW 15.6 H 15.4 H Plt Count 88 L 114 L Seg Neutrophils % 70.7 Lymphocytes % 16.6 Monocytes % 11.7 Eosinophils % 0.5 Basophils % 0.5 Absolute Neutrophils 3.3 Absolute Lymphocytes 0.8 Absolute Monocytes 0.5 Absolute Eosinophils 0.0 Absolute Basophils 0.0 Sodium 134.9 L Potassium 3.2 L Chloride 92 L Carbon Dioxide 27 Anion Gap 16 BUN 52 H Creatinine 5.67 H Est GFR ( Amer) 9 L Est GFR (Non-Af Amer) 7 L Glucose 97 Calcium 7.9 L 11/27/16 11:43 Pleural Fluid Gram Stain - Final 11/27/16 11:43 Pleural Fluid Body Fluid Culture - Final NO AEROBIC OR ANAEROBIC ORGANISMS RECOVERED 11/26/16 07:15 Blood Blood Culture - Final NO GROWTH IN 5 DAYS 11/25/16 23:20 Blood Blood Culture - Final NO GROWTH IN 5 DAYS Impressions: Thoracentesis Ultrasound 11/27/16 00:07 IMPRESSION: SUCCESSFUL THORACENTESIS USING ULTRASOUND GUIDANCE. Chest CT 11/28/16 00:00 IMPRESSION: Rapid re-accumulation of a large right pleural effusion Right middle and lower lobe airspace disease edema versus pneumonia Chest X-Ray 12/01/16 06:00 IMPRESSION: No change, with stable consolidation at both lung bases and bilateral small pleural effusions Assessment & Plan - Diagnosis (1) ESRD (end stage renal disease) on dialysis Is this a current diagnosis for this admission?: YesPlan: We will do dialysis today for 3 hours, using the patient's AV fistula, with really potassium bath, blood flow rate of 450 mL per minute, dialysate flow rate of 600 mL per minute, ultrafiltration 3 L, no heparin and no Procrit during dialysis. We'll continue hemodialysis support while in the hospital. (2) Acute on chronic respiratory failure with hypoxemia Is this a current diagnosis for this admission?: YesPlan: Likely multifactorial secondary to bilateral pleural effusion which is worsening , COPD exacerbation, cannot exclude underlying pneumonia or acute bronchitis, with underlying chronic congestive heart failure. Continue oxygen therapy and BiPAP during sleep. Clinically seems unchanged. Status post thoracentesis last week. (3) Bilateral pleural effusion Is this a current diagnosis for this admission?: YesPlan: Status post right thoracentesis obtaining 1.7 L of fluid last week. However there is evidence of re-accumulation of the pleural fluid. The hemodialysis along cannot really take off fluid from the pleural space. I think the pleural effusion is affecting the patient's oxygenation. Awaiting final recommendation from pulmonary service regarding the reaccumulation of pleural effusion. (4) COPD exacerbation Is this a current diagnosis for this admission?: YesPlan: Agree with IV antibiotics, prednisone, and nebulization treatment. (5) Bleeding from shunt Is this a current diagnosis for this admission?: YesPlan: Patient scheduled for fistulogram and possible repair if there is a stenosis by Dr. Casper tomorrow morning. (6) Anemia in chronic kidney disease (CKD) Is this a current diagnosis for this admission?: YesPlan: We will give Procrit during dialysis is needed. She does not need a dose today. (7) Chronic congestive heart failure Qualifiers: Congestive heart failure type: combined Qualified Code(s): I50.42 - Chronic combined systolic (congestive) and diastolic (congestive) heart failure Is this a current diagnosis for this admission?: Yes (8) Diabetes mellitus, type II Is this a current diagnosis for this admission?: Yes (9) Thrombocytopenia Is this a current diagnosis for this admission?: Yes (10) Hypertension Qualifiers: Hypertension type: essential hypertension Qualified Code(s): I10 - Essential (primary) hypertension Is this a current diagnosis for this admission?: YesPlan: Blood pressure slightly on the low side. Continue metoprolol for cardiac benefit. - Time Time with patient: 15-25 minutes
[2016-12-01] MEDS: ATORVASTATIN CALCIUM 20 MG TABLET PO SCH (21:13)
[2016-12-01] MEDS: INSULIN GLARGINE,HUM.REC.ANLOG 300 UNIT/3 ML INSULN.PEN SUBCUT SCH (22:30)
[2016-12-02] MEDS: IPRATROPIUM/ALBUTEROL 0.5-2.5 MG/3 ML AMPUL NEB SCH ×4 (01:51→20:54)
[2016-12-02] MEDS: GUAIFENESIN SYRP 200 MG/10 ML UDC PO PRN (02:57)
[2016-12-02 05:36] LABS: ABSOLUTE EOSINOPHILS # (AUTO) 0.1 10^3/uL (0.0-0.6); ABSOLUTE LYMPHOCYTES (AUTO) 0.6 10^3/uL (0.5-4.7); ABSOLUTE MONOCYTES (AUTO) 0.8 10^3/uL (0.1-1.4); ABSOLUTE NEUT (AUTO) 6.8 10^3/uL (1.7-8.2); BASOPHILS % (AUTO) 0.3 % (0-2); EOSINOPHILS % (AUTO) 0.7 % (0-6); HEMOGLOBIN 12.9 g/dL (12.0-15.5); HGB HCT DIFFERENCE 0.7; LYMPHOCYTES % (AUTO) 7.3 % (13-45); MEAN CORPUSCULAR HEMOGLOBIN 32.7 pg (27.0-33.4); MEAN CORPUSCULAR HGB CONC 33.9 g/dL (32.0-36.0); MEAN CORPUSCULAR VOLUME 97 fl (80-97); MONOCYTES % (AUTO) 9.4 % (3-13); RED BLOOD COUNT 3.94 10^6/uL (3.72-5.28); RED CELL DISTRIBUTION WIDTH 15.7 % (11.5-14.0); SEGMENTED NEUTROPHILS % (AUTO) 82.3 % (42-78); WHITE BLOOD COUNT 8.2 10^3/uL (4.0-10.5)
[2016-12-02 05:49] LABS: ALANINE AMINOTRANSFERASE 43 U/L (9-52); ALBUMIN 3.9 g/dL (3.5-5.0); ALKALINE PHOSPHATASE 172 U/L (38-126); ANION GAP 16 (5-19); ASPARTATE AMINO TRANSFERASE 54 U/L (14-36); BILIRUBIN,DIRECT 0.7 mg/dL (0.0-0.4); BLOOD UREA NITROGEN 39 mg/dL (7-20); CALCIUM 8.4 mg/dL (8.4-10.2); CARBON DIOXIDE 32 mmol/L (22-30); CHLORIDE 94 mmol/L (98-107); GLUCOSE 89 mg/dL (75-110); MAGNESIUM 1.9 mg/dL (1.6-2.3); SODIUM 142.1 mmol/L (137-145); TOTAL PROTEIN 7.4 g/dL (6.3-8.2)
[2016-12-02] MEDS: PHENYTOIN SODIUM EXTENDED 100 MG CAPSULE PO SCH ×2 (08:37→22:56)
[2016-12-02] MEDS: PREDNISONE 20 MG TABLET PO SCH (10:33)
[2016-12-02] MEDS: LEVOTHYROXINE SODIUM 0.05 MG TABLET PO SCH (10:34)
[2016-12-02] MEDS: DOXYCYCLINE HYCLATE 100 MG TABLET PO SCH ×2 (10:34→22:56)
[2016-12-02] MEDS: METOPROLOL TARTRATE 25 MG TABLET PO SCH (10:34)
[2016-12-02] MEDS: PHENOBARBITAL 64.8 MG TABLET PO SCH (10:34)
[2016-12-02 12:39] LABS: ARTERIAL BLOOD BASE EXCESS 6.7 mmol/L; ARTERIAL BLOOD O2 SATURATION 93.2 % (94-98)
[2016-12-02] MEDS: FOLIC ACID/VITAMIN B COMP W-C CAPSULE PO SCH (16:23)
--- NOTE | 2016-12-02 16:42 | PDOC PROGRESS REPORT ---
Subjective Progress Note for:: 12/02/16 Subjective:: Patient had an episode today of decreased responsiveness. She was slightly hypoglycemic. She has been nothing by mouth for a fistulogram this morning. She was given dextrose and her mental status has improved back to baseline. Patient denies fever, chills, headache, new focal weakness, chest pain, shortness of breath, abdominal pain, nausea, vomiting, diarrhea, constipation. Physical Exam Vital Signs: Temp Pulse Resp BP Pulse Ox 97.7 F 84 19 103/43 L 97 12/02/16 11:05 12/02/16 14:08 12/02/16 14:08 12/02/16 11:05 12/02/16 11:05 Intake & Output 12/01/16 12/02/16 12/03/16 06:59 06:59 06:59 Intake Total 1053 463 Output Total 0 3100 Balance 1053 -2637 Weight 72 kg GENERAL: No acute distress HEENT: Conjunctiva clear, nonicteric, moist mucous membranes, no JVD, midline trachea RESPIRATORY: Rhonchi/egophony heard in right posterior inferior lung field CARDIAC: Regular rate and rhythm, no murmurs/gallops/rubs ABDOMEN: Soft, nondistended, nontender, positive bowel sounds, no rebound, no guarding EXTREMETIES: 1+ bilateral lower extremity edema. Cyanosis, clubbing NEUROLOGIC: Alert, oriented to person/place/time, CN's grossly intact, no focal deficits SKIN: No rash, wounds PSYCH: Normal mood, normal affect Results Laboratory Results: 12/02/16 05:16 12/02/16 05:16 12/02/16 12/02/16 12/02/16 05:16 05:16 12:15 WBC 8.2 RBC 3.94 Hgb 12.9 Hct 38.0 MCV 97 MCH 32.7 MCHC 33.9 RDW 15.7 H Plt Count 114 L Seg Neutrophils % 82.3 H Lymphocytes % 7.3 L Monocytes % 9.4 Eosinophils % 0.7 Basophils % 0.3 Absolute Neutrophils 6.8 Absolute Lymphocytes 0.6 Absolute Monocytes 0.8 Absolute Eosinophils 0.1 Absolute Basophils 0.0 Carbonic Acid 1.51 H HCO3/H2CO3 Ratio 21:1 ABG pH 7.43 ABG pCO2 50.1 H ABG pO2 65.7 L ABG HCO3 32.3 H ABG O2 Saturation 93.2 L ABG Base Excess 6.7 FiO2 4 L Sodium 142.1 Potassium 4.0 Chloride 94 L Carbon Dioxide 32 H Anion Gap 16 BUN 39 H Creatinine 4.10 H Est GFR ( Amer) 13 L Est GFR (Non-Af Amer) 11 L Glucose 89 Calcium 8.4 Magnesium 1.9 Total Bilirubin 1.0 AST 54 H ALT 43 Alkaline Phosphatase 172 H Total Protein 7.4 Albumin 3.9 Impressions: Thoracentesis Ultrasound 11/27/16 00:07 IMPRESSION: SUCCESSFUL THORACENTESIS USING ULTRASOUND GUIDANCE. Chest CT 11/28/16 00:00 IMPRESSION: Rapid re-accumulation of a large right pleural effusion Right middle and lower lobe airspace disease edema versus pneumonia Chest X-Ray 12/02/16 11:52 IMPRESSION: Partial clearing of the bibasilar airspace disease particularly on the right. Persistent pleural effusions bilaterally, similar compared to chest film 2016 Assessment & Plan - Diagnosis (1) Acute on chronic respiratory failure with hypoxemia Is this a current diagnosis for this admission?: YesPlan: Likely multifactorial to include COPD, CHF, pleural effusion, pneumonia. Patient may require home oxygen. Taper off prednisone. (2) Bilateral pleural effusion Is this a current diagnosis for this admission?: YesPlan: Patient is status post diagnostic and therapeutic thoracentesis on 11/27/2016 with removal of 1200 mL fluid. Fluid had high RBC count. Cytology negative for malignancy. Patient has improved with fluid removal during dialysis. According to hemodialysis nurse patient has had approximately 13 L removed this admission. (3) Pneumonia Is this a current diagnosis for this admission?: YesPlan: Likely bacterial. Continue doxycycline until 12/06/2016. Blood cultures and pleural fluid culture no growth. (4) Bleeding from shunt Is this a current diagnosis for this admission?: YesPlan: Patient was supposed to have a fistulogram today, but this had to be canceled secondary to altered mental status/hypoglycemia. (5) Chronic congestive heart failure Qualifiers: Congestive heart failure type: combined Qualified Code(s): I50.42 - Chronic combined systolic (congestive) and diastolic (congestive) heart failure Is this a current diagnosis for this admission?: YesPlan: Continue metoprolol. Continue to maintain fluid balance with hemodialysis. (6) ESRD (end stage renal disease) on dialysis Is this a current diagnosis for this admission?: YesPlan: Patient is on hemodialysis and is being followed by Dr. Quach of nephrology. (7) Diabetes mellitus, type II Is this a current diagnosis for this admission?: YesPlan: Discontinue Lantus. Continue sliding scale insulin. (8) Thrombocytopenia Is this a current diagnosis for this admission?: YesPlan: This seems to have improved with prednisone over the past several days. Patient was incidentally receiving prednisone for COPD. Heparin-induced thrombocytopenia panel pending. Consult Dr. Alas of hematology. (9) Secondary hyperparathyroidism (of renal origin) Is this a current diagnosis for this admission?: Yes (10) Seizure disorder Is this a current diagnosis for this admission?: YesPlan: Continue Dilantin and phenobarbital. (11) Hypothyroid Is this a current diagnosis for this admission?: YesPlan: Synthroid. (12) Coronary artery disease Qualifiers: Coronary Disease-Associated Artery/Lesion type: unspecified vessel or lesion type [place] vs. transplanted heart: [place] heart Associated angina: angina presence unspecified Qualified Code(s): I25.10 - Atherosclerotic heart disease of [place] coronary artery without angina pectoris Is this a current diagnosis for this admission?: YesPlan: Continue atorvastatin and metoprolol. Patient is too thrombocytopenia to be on antiplatelet agent at this time. (13) Weakness Is this a current diagnosis for this admission?: YesPlan: Physical therapy to evaluate. Patient already has home health services through [facility], but may benefit from home physical therapy as well. (14) Jaundice Is this a current diagnosis for this admission?: YesPlan: Patient's sclera appeared slightly icteric, however liver function test are unremarkable. (15) DNR (do not resuscitate) Is this a current diagnosis for this admission?: Yes - Time Time Spent with patient: 35 or more minutes
--- NOTE | 2016-12-02 17:21 | PDOC PROGRESS REPORT ---
Subjective Progress Note for:: 12/02/16 Subjective:: I do not feel so good Physical Exam Vital Signs: Temp Pulse Resp BP Pulse Ox 98.1 F 83 23 H 103/39 L 90 L 12/02/16 16:00 12/02/16 16:00 12/02/16 16:00 12/02/16 16:00 12/02/16 16:00 Intake & Output 12/01/16 12/02/16 12/03/16 06:59 06:59 06:59 Intake Total 1053 463 Output Total 0 3100 Balance 1053 -2637 Weight 72 kg General appearance: PRESENT: cooperative, disheveled, obese Head exam: PRESENT: atraumatic, normocephalic Eye exam: PRESENT: conjunctiva pale, EOMI Mouth exam: PRESENT: neck supple Neck exam: ABSENT: carotid bruit, JVD, lymphadenopathy, thyromegaly Respiratory exam: PRESENT: decreased breath sounds, prolonged expiratory phas, rhonchi, stridor, unlabored Cardiovascular exam: PRESENT: RRR, +S1, +S2 Pulses: PRESENT: normal radial pulses GI/Abdominal exam: PRESENT: normal bowel sounds, soft. ABSENT: distended, guarding, mass, organolmegaly, rebound, tenderness Rectal exam: PRESENT: deferred Extremities exam: PRESENT: +2 edema Neurological exam: PRESENT: alert, awake Psychiatric exam: PRESENT: normal mood Skin exam: PRESENT: dry, warm Results Laboratory Results: 12/02/16 05:16 12/02/16 05:16 12/02/16 12/02/16 12/02/16 05:16 05:16 12:15 WBC 8.2 RBC 3.94 Hgb 12.9 Hct 38.0 MCV 97 MCH 32.7 MCHC 33.9 RDW 15.7 H Plt Count 114 L Seg Neutrophils % 82.3 H Lymphocytes % 7.3 L Monocytes % 9.4 Eosinophils % 0.7 Basophils % 0.3 Absolute Neutrophils 6.8 Absolute Lymphocytes 0.6 Absolute Monocytes 0.8 Absolute Eosinophils 0.1 Absolute Basophils 0.0 Carbonic Acid 1.51 H HCO3/H2CO3 Ratio 21:1 ABG pH 7.43 ABG pCO2 50.1 H ABG pO2 65.7 L ABG HCO3 32.3 H ABG O2 Saturation 93.2 L ABG Base Excess 6.7 FiO2 4 L Sodium 142.1 Potassium 4.0 Chloride 94 L Carbon Dioxide 32 H Anion Gap 16 BUN 39 H Creatinine 4.10 H Est GFR ( Amer) 13 L Est GFR (Non-Af Amer) 11 L Glucose 89 Calcium 8.4 Magnesium 1.9 Total Bilirubin 1.0 AST 54 H ALT 43 Alkaline Phosphatase 172 H Total Protein 7.4 Albumin 3.9 Impressions: Thoracentesis Ultrasound 11/27/16 00:07 IMPRESSION: SUCCESSFUL THORACENTESIS USING ULTRASOUND GUIDANCE. Chest CT 11/28/16 00:00 IMPRESSION: Rapid re-accumulation of a large right pleural effusion Right middle and lower lobe airspace disease edema versus pneumonia Chest X-Ray 12/02/16 11:52 IMPRESSION: Partial clearing of the bibasilar airspace disease particularly on the right. Persistent pleural effusions bilaterally, similar compared to chest film 2016 Assessment & Plan - Diagnosis (1) Acute on chronic respiratory failure with hypoxemia Is this a current diagnosis for this admission?: YesPlan: Displaying hypercapnia on 4 L nasal cannula (2) Chronic congestive heart failure Qualifiers: Congestive heart failure type: combined Qualified Code(s): I50.42 - Chronic combined systolic (congestive) and diastolic (congestive) heart failure Is this a current diagnosis for this admission?: YesPlan: Radiographically appears to be somewhat better (3) Thrombocytopenia Is this a current diagnosis for this admission?: YesPlan: Platelet count slightly improved (4) COPD exacerbation Is this a current diagnosis for this admission?: YesPlan: Consider adding Xopenex and Daliresp to medical regimen (5) Pleural effusion Is this a current diagnosis for this admission?: YesPlan: Somewhat diminished
[2016-12-02] MEDS: ATORVASTATIN CALCIUM 20 MG TABLET PO SCH (22:56)
[2016-12-02] MEDS: INSULIN LISPRO 100 UNIT/ML 3 ML VIAL SUBCUT PRN (22:58)
[2016-12-03] MEDS: IPRATROPIUM/ALBUTEROL 0.5-2.5 MG/3 ML AMPUL NEB SCH ×2 (02:16→08:44)
[2016-12-03 05:39] LABS: ABSOLUTE LYMPHOCYTES (AUTO) 0.5 10^3/uL (0.5-4.7); ABSOLUTE MONOCYTES (AUTO) 0.7 10^3/uL (0.1-1.4); ABSOLUTE NEUT (AUTO) 5.7 10^3/uL (1.7-8.2); BASOPHILS % (AUTO) 0.4 % (0-2); EOSINOPHILS % (AUTO) 0.5 % (0-6); HEMATOCRIT 34.8 % (36.0-47.0); HEMOGLOBIN 11.9 g/dL (12.0-15.5); HGB HCT DIFFERENCE 0.9; LYMPHOCYTES % (AUTO) 7.7 % (13-45); MEAN CORPUSCULAR HEMOGLOBIN 33.1 pg (27.0-33.4); MEAN CORPUSCULAR HGB CONC 34.4 g/dL (32.0-36.0); MEAN CORPUSCULAR VOLUME 96 fl (80-97); MONOCYTES % (AUTO) 10.4 % (3-13); RED BLOOD COUNT 3.61 10^6/uL (3.72-5.28); RED CELL DISTRIBUTION WIDTH 15.5 % (11.5-14.0); WHITE BLOOD COUNT 7.1 10^3/uL (4.0-10.5)
[2016-12-03 05:49] LABS: ANION GAP 16 (5-19); BLOOD UREA NITROGEN 53 mg/dL (7-20); CALCIUM 8.1 mg/dL (8.4-10.2); CARBON DIOXIDE 30 mmol/L (22-30); CHLORIDE 93 mmol/L (98-107); CREATININE RESULT 4.81 mg/dL (0.52-1.25); GLUCOSE 142 mg/dL (75-110); POTASSIUM 4.3 mmol/L (3.6-5.0); SODIUM 138.5 mmol/L (137-145)
[2016-12-03] MEDS: PHENYTOIN SODIUM EXTENDED 100 MG CAPSULE PO SCH ×2 (07:35→21:16)
[2016-12-03] MEDS ORDERED: PREDNISONE 20 MG TABLET PO SCH (10:00)
[2016-12-03] MEDS: PHENOBARBITAL 64.8 MG TABLET PO SCH (10:37)
[2016-12-03] MEDS: LEVOTHYROXINE SODIUM 0.05 MG TABLET PO SCH (10:37)
[2016-12-03] MEDS: DOXYCYCLINE HYCLATE 100 MG TABLET PO SCH ×2 (10:37→21:17)
[2016-12-03] MEDS: METOPROLOL TARTRATE 25 MG TABLET PO SCH (10:37)
--- NOTE | 2016-12-03 11:32 | PDOC PROGRESS REPORT ---
Subjective Progress Note for:: 12/03/16 Subjective:: awake but slightly letargic Physical Exam Vital Signs: Temp Pulse Resp BP Pulse Ox 98.3 F 95 18 107/31 L 94 12/03/16 07:24 12/03/16 08:44 12/03/16 08:44 12/03/16 07:24 12/03/16 08:44 Intake & Output 12/02/16 12/03/16 12/04/16 06:59 06:59 06:59 Intake Total 463 699 Output Total 3100 Balance -3097 699 Weight 72 kg 72.7 kg General appearance: PRESENT: disheveled, obese Head exam: PRESENT: atraumatic, normocephalic Eye exam: PRESENT: conjunctiva pale, EOMI Mouth exam: PRESENT: moist, neck supple Neck exam: ABSENT: carotid bruit, JVD, lymphadenopathy, thyromegaly Respiratory exam: PRESENT: decreased breath sounds, prolonged expiratory phas, rales, symmetrical, other - Egophony right greater than left base Cardiovascular exam: PRESENT: RRR, +S1, +S2 Pulses: PRESENT: normal radial pulses GI/Abdominal exam: PRESENT: normal bowel sounds, soft. ABSENT: distended, guarding, mass, organolmegaly, rebound, tenderness Rectal exam: PRESENT: deferred Gentrourinary exam: PRESENT: indwelling catheter Extremities exam: PRESENT: +2 edema Neurological exam: PRESENT: awake Skin exam: PRESENT: dry Results Laboratory Results: 12/03/16 05:25 12/03/16 05:25 12/02/16 12/03/16 12/03/16 12:15 05:25 05:25 WBC 7.1 RBC 3.61 L Hgb 11.9 L Hct 34.8 L MCV 96 MCH 33.1 MCHC 34.4 RDW 15.5 H Plt Count 115 L Seg Neutrophils % 81.0 H Lymphocytes % 7.7 L Monocytes % 10.4 Eosinophils % 0.5 Basophils % 0.4 Absolute Neutrophils 5.7 Absolute Lymphocytes 0.5 Absolute Monocytes 0.7 Absolute Eosinophils 0.0 Absolute Basophils 0.0 Carbonic Acid 1.51 H HCO3/H2CO3 Ratio 21:1 ABG pH 7.43 ABG pCO2 50.1 H ABG pO2 65.7 L ABG HCO3 32.3 H ABG O2 Saturation 93.2 L ABG Base Excess 6.7 FiO2 4 L Sodium 138.5 Potassium 4.3 Chloride 93 L Carbon Dioxide 30 Anion Gap 16 BUN 53 H Creatinine 4.81 H Est GFR ( Amer) 11 L Est GFR (Non-Af Amer) 9 L Glucose 142 H Calcium 8.1 L Impressions: Thoracentesis Ultrasound 11/27/16 00:07 IMPRESSION: SUCCESSFUL THORACENTESIS USING ULTRASOUND GUIDANCE. Chest CT 11/28/16 00:00 IMPRESSION: Rapid re-accumulation of a large right pleural effusion Right middle and lower lobe airspace disease edema versus pneumonia Chest X-Ray 12/02/16 11:52 IMPRESSION: Partial clearing of the bibasilar airspace disease particularly on the right. Persistent pleural effusions bilaterally, similar compared to chest film 2016 Assessment & Plan - Diagnosis (1) Acute on chronic respiratory failure with hypoxemia Is this a current diagnosis for this admission?: YesPlan: PCO2 retention on oxygen of 4 L (2) Chronic congestive heart failure Qualifiers: Congestive heart failure type: combined Qualified Code(s): I50.42 - Chronic combined systolic (congestive) and diastolic (congestive) heart failure Is this a current diagnosis for this admission?: YesPlan: Unchanged (3) Thrombocytopenia Is this a current diagnosis for this admission?: YesPlan: Improving (4) COPD exacerbation Is this a current diagnosis for this admission?: YesPlan: Stable at this time (5) Pleural effusion Is this a current diagnosis for this admission?: YesPlan: Despite dialysis effusions remain discussed at length with Dr. Hardwick I agree patient may benefit from pleural Pleurodex catheter to right hemithorax
[2016-12-03] MEDS: ALBUTEROL SULFATE 0.083% NEB 2.5 MG/3 ML AMPUL NEB SCH ×2 (14:01→21:01)
--- NOTE | 2016-12-03 15:31 | PDOC PROGRESS REPORT ---
Subjective Progress Note for:: 12/03/16 Subjective:: We saw the patient during dialysis at around 8:10 AM today. Patient still looks ill and has been nauseated and actually vomited while I was rounding. Her daughter is present during this evaluation. Patient complains of feeling tired. She is is still short of breath requiring oxygen. She does not eat well and claims that she also does not sleep well and when she laid down she is short of breath. Her AV fistula fistulogram was held yesterday because of episode of hypoglycemia. Physical Exam Vital Signs: Temp Pulse Resp BP Pulse Ox 97.8 F 92 20 108/44 L 99 12/03/16 13:31 12/03/16 14:01 12/03/16 14:01 12/03/16 13:43 12/03/16 14:01 Intake & Output 12/02/16 12/03/16 12/04/16 06:59 06:59 06:59 Intake Total 463 699 358 Output Total 3100 0 Balance -2637 699 358 Weight 72 kg 72.7 kg Vital signs during dialysis: Blood pressure 115/49, heart rate of 94, blood flow rate of 450 mL per minute and dialysate flow rate of 600 mL per minute. Exam: General appearance: PRESENT: no acute distress, cooperative, still appears ill Head exam: PRESENT: atraumatic, normocephalic, Eye exam: PRESENT: conjunctiva pink, PERRLA. ABSENT: scleral icterus Neck exam: ABSENT: JVD Respiratory exam: PRESENT: Decrease breath sounds on the right lung [place] compared to the left. ABSENT: crackles, rales, rhonchi, unlabored, wheezes Cardiovascular exam: PRESENT: Regular rate rhythm -+S1, +S2. ABSENT: diastolic murmur, systolic murmur GI/Abdominal exam: PRESENT: normal bowel sounds, soft. ABSENT: guarding, mass, tenderness Extremities exam: Chronic bilateral grade 1 bilateral pedal edema which is actually improved from usual. Neurological exam: PRESENT: alert, awake, oriented to person, place and time. Skin exam: PRESENT: dry, warm, Cardiovascular exam: PRESENT: +S1, +S2, systolic murmur GI/Abdominal exam: PRESENT: normal bowel sounds, soft. ABSENT: diminished bowel sounds, firm, tenderness Results Laboratory Results: 12/03/16 05:25 12/03/16 05:25 12/03/16 12/03/16 12/03/16 05:25 05:25 13:07 WBC 7.1 RBC 3.61 L Hgb 11.9 L Hct 34.8 L MCV 96 MCH 33.1 MCHC 34.4 RDW 15.5 H Plt Count 115 L Seg Neutrophils % 81.0 H Lymphocytes % 7.7 L Monocytes % 10.4 Eosinophils % 0.5 Basophils % 0.4 Absolute Neutrophils 5.7 Absolute Lymphocytes 0.5 Absolute Monocytes 0.7 Absolute Eosinophils 0.0 Absolute Basophils 0.0 Sodium 138.5 Potassium 4.3 Chloride 93 L Carbon Dioxide 30 Anion Gap 16 BUN 53 H Creatinine 4.81 H Est GFR ( Amer) 11 L Est GFR (Non-Af Amer) 9 L Glucose 142 H Calcium 8.1 L TSH 2.39 12/03/16 13:07 Creatine Kinase 58 Impressions: Thoracentesis Ultrasound 11/27/16 00:07 IMPRESSION: SUCCESSFUL THORACENTESIS USING ULTRASOUND GUIDANCE. Chest CT 11/28/16 00:00 IMPRESSION: Rapid re-accumulation of a large right pleural effusion Right middle and lower lobe airspace disease edema versus pneumonia Chest X-Ray 12/02/16 11:52 IMPRESSION: Partial clearing of the bibasilar airspace disease particularly on the right. Persistent pleural effusions bilaterally, similar compared to chest film 2016 Assessment & Plan - Diagnosis (1) ESRD (end stage renal disease) on dialysis Is this a current diagnosis for this admission?: YesPlan: We did dialysis today for [3] hours, using the patient's AV fistula, with 3 potassium bath, blood flow rate of 50 mL per minute, dialysate flow rate of [600 ] mL per minute, ultrafiltration 2.9 L, [no heparin] and no Procrit during dialysis. (2) Acute on chronic respiratory failure with hypoxemia Is this a current diagnosis for this admission?: YesPlan: Likely multifactorial secondary to bilateral pleural effusion which is worsening , COPD exacerbation, cannot exclude underlying pneumonia or acute bronchitis, with underlying chronic congestive heart failure. Continue oxygen therapy and BiPAP during sleep. Clinically seems unchanged. Status post thoracentesis last week. (3) Bilateral pleural effusion Is this a current diagnosis for this admission?: YesPlan: Status post right thoracentesis obtaining 1.7 L of fluid last week. However there is evidence of re-accumulation of the pleural fluid. The hemodialysis alone cannot really take off fluid from the pleural space. I think the pleural effusion is affecting the patient's oxygenation. Awaiting final recommendation from pulmonary service regarding the reaccumulation of pleural effusion. I discussed this with Dr. Hardwick today. Informed him that dialysis alone will not really help the pleural effusion much and will always reaccumulate causing shortness of breathing with this patient. He agreed that he might be able to do of Pleurx catheter placement for occasional drainage of her pleural effusion. He will make arrangements and discussed this with coating mixer tender Dr. pham seen. (4) COPD exacerbation Is this a current diagnosis for this admission?: YesPlan: Agree with IV antibiotics, prednisone, and nebulization treatment. (5) Bleeding from shunt Is this a current diagnosis for this admission?: YesPlan: Minimal bleeding occasionally now on hemodialysis. No anticoagulation is being used during dialysis. I discussed this again with vascular surgeon Dr. Casper. I also discussed this with Dr. Hardwick. We will plan to have the patient have a fistulogram again tomorrow if possible. Dr. Hardwick will hold the Lantus this time to make sure she does not go into episode of hypoglycemia again. I told Dr. Hardwick this this needs to be fixed so that we can do an efficient and adequate hemodialysis which seems to be only thing that is helping the patient at this point. This needs to be fixed as an inpatient because of the patient's very fragile condition. Dr. Hardwick agreed. (6) Anemia in chronic kidney disease (CKD) Is this a current diagnosis for this admission?: YesPlan: We will give Procrit during dialysis is needed. She does not need a dose today. (7) Chronic congestive heart failure Qualifiers: Congestive heart failure type: combined Qualified Code(s): I50.42 - Chronic combined systolic (congestive) and diastolic (congestive) heart failure Is this a current diagnosis for this admission?: Yes (8) Diabetes mellitus, type II Is this a current diagnosis for this admission?: Yes (9) Thrombocytopenia Is this a current diagnosis for this admission?: YesPlan: Improving while on prednisone. (10) Hypertension Qualifiers: Hypertension type: essential hypertension Qualified Code(s): I10 - Essential (primary) hypertension Is this a current diagnosis for this admission?: YesPlan: Blood pressure slightly on the low side. Continue metoprolol for cardiac benefit. - Notes Notes: Discussed condition with the patient's daughter. She is very much aware of the patient's deteriorating condition. In fact patient's daughter asked me if this means end of life. I told the daughter that patient is very near end of life due to her many comorbidities conditions. However are going to continue to do what we can to make the patient felt better. I discussed the case with Dr. Casper and Dr. Hardwick as above. - Time Time with patient: 15-25 minutes
[2016-12-03] MEDS: FOLIC ACID/VITAMIN B COMP W-C CAPSULE PO SCH (16:23)
--- NOTE | 2016-12-03 16:33 | PDOC PROGRESS REPORT ---
Subjective Progress Note for:: 12/03/16 Subjective:: Patient states that she is tired and has continued cough. She continues to have poor appetite and nausea. She expressed to her daughter this morning she was ready to give up on life. Patient denies fever, chills, headache, new focal weakness, chest pain, abdominal pain, vomiting, diarrhea, constipation. Physical Exam Vital Signs: Temp Pulse Resp BP Pulse Ox 97.8 F 92 19 108/44 L 99 12/03/16 13:31 12/03/16 14:01 12/03/16 16:00 12/03/16 13:43 12/03/16 14:01 Intake & Output 12/02/16 12/03/16 12/04/16 06:59 06:59 06:59 Intake Total 463 699 358 Output Total 3100 0 Balance -2637 699 358 Weight 72 kg 72.7 kg GENERAL: No acute distress, frail/ill-appearing HEENT: Conjunctiva clear, nonicteric, moist mucous membranes, no JVD, midline trachea RESPIRATORY: Rhonchi/egophony heard in right posterior inferior lung field CARDIAC: Regular rate and rhythm, no murmurs/gallops/rubs ABDOMEN: Soft, nondistended, nontender, positive bowel sounds, no rebound, no guarding EXTREMETIES: 1+ bilateral lower extremity edema. Cyanosis, clubbing NEUROLOGIC: Alert, oriented to person/place/time, CN's grossly intact, no focal deficits SKIN: No rash, wounds PSYCH: Depressed appearing Results Laboratory Results: 12/03/16 05:25 12/03/16 05:25 12/03/16 12/03/16 12/03/16 05:25 05:25 13:07 WBC 7.1 RBC 3.61 L Hgb 11.9 L Hct 34.8 L MCV 96 MCH 33.1 MCHC 34.4 RDW 15.5 H Plt Count 115 L Seg Neutrophils % 81.0 H Lymphocytes % 7.7 L Monocytes % 10.4 Eosinophils % 0.5 Basophils % 0.4 Absolute Neutrophils 5.7 Absolute Lymphocytes 0.5 Absolute Monocytes 0.7 Absolute Eosinophils 0.0 Absolute Basophils 0.0 Sodium 138.5 Potassium 4.3 Chloride 93 L Carbon Dioxide 30 Anion Gap 16 BUN 53 H Creatinine 4.81 H Est GFR ( Amer) 11 L Est GFR (Non-Af Amer) 9 L Glucose 142 H Calcium 8.1 L TSH 2.39 12/03/16 13:07 Creatine Kinase 58 Impressions: Thoracentesis Ultrasound 11/27/16 00:07 IMPRESSION: SUCCESSFUL THORACENTESIS USING ULTRASOUND GUIDANCE. Chest CT 11/28/16 00:00 IMPRESSION: Rapid re-accumulation of a large right pleural effusion Right middle and lower lobe airspace disease edema versus pneumonia Chest X-Ray 12/02/16 11:52 IMPRESSION: Partial clearing of the bibasilar airspace disease particularly on the right. Persistent pleural effusions bilaterally, similar compared to chest film 2016 Assessment & Plan - Diagnosis (1) Acute on chronic respiratory failure with hypoxemia Is this a current diagnosis for this admission?: YesPlan: Continue oxygen per respiratory support. I have had a long discussion with patient and her daughter today regarding patient's general health, multiple comorbid and end-stage conditions, and age. I have advised them that her quality of life will likely continue to deteriorate given these factors. Patient has expressed the desire to discontinue aggressive measures today. Daughter also seems to be in agreement but will let me now for certain tomorrow. I believe that they are generally heading towards palliative care/ comfort measures. Patient's daughter states that she certainly would not want to have anything aggressive done such as procedures (fistulogram, chest tube, etc.) (2) Bilateral pleural effusion Is this a current diagnosis for this admission?: Yes (3) Pneumonia Is this a current diagnosis for this admission?: Yes (4) Bleeding from shunt Is this a current diagnosis for this admission?: Yes (5) Chronic congestive heart failure Qualifiers: Congestive heart failure type: combined Qualified Code(s): I50.42 - Chronic combined systolic (congestive) and diastolic (congestive) heart failure Is this a current diagnosis for this admission?: Yes (6) ESRD (end stage renal disease) on dialysis Is this a current diagnosis for this admission?: Yes (7) Diabetes mellitus, type II Is this a current diagnosis for this admission?: Yes (8) Thrombocytopenia Is this a current diagnosis for this admission?: YesPlan: This seems to have improved with prednisone over the past several days. Patient was incidentally receiving prednisone for COPD. Heparin-induced thrombocytopenia panel negative. Consult Dr. Alas of hematology. (9) Secondary hyperparathyroidism (of renal origin) Is this a current diagnosis for this admission?: Yes (10) Seizure disorder Is this a current diagnosis for this admission?: Yes (11) Hypothyroid Is this a current diagnosis for this admission?: Yes (12) Coronary artery disease Qualifiers: Coronary Disease-Associated Artery/Lesion type: unspecified vessel or lesion type [place] vs. transplanted heart: [place] heart Associated angina: angina presence unspecified Qualified Code(s): I25.10 - Atherosclerotic heart disease of [place] coronary artery without angina pectoris Is this a current diagnosis for this admission?: Yes (13) Weakness Is this a current diagnosis for this admission?: Yes (14) Jaundice Is this a current diagnosis for this admission?: Yes (15) DNR (do not resuscitate) Is this a current diagnosis for this admission?: Yes - Time Time Spent with patient: 25-34 minutes
[2016-12-03] MEDS: ATORVASTATIN CALCIUM 20 MG TABLET PO SCH (21:16)
[2016-12-03] MEDS: INSULIN LISPRO 100 UNIT/ML 3 ML VIAL SUBCUT PRN (23:48)
[2016-12-04 05:44] LABS: ABSOLUTE EOSINOPHILS # (AUTO) 0.1 10^3/uL (0.0-0.6); ABSOLUTE LYMPHOCYTES (AUTO) 0.7 10^3/uL (0.5-4.7); ABSOLUTE NEUT (AUTO) 6.4 10^3/uL (1.7-8.2); BASOPHILS % (AUTO) 0.5 % (0-2); HEMATOCRIT 34.4 % (36.0-47.0); HEMOGLOBIN 11.8 g/dL (12.0-15.5); LYMPHOCYTES % (AUTO) 8.8 % (13-45); MEAN CORPUSCULAR HEMOGLOBIN 33.1 pg (27.0-33.4); MEAN CORPUSCULAR HGB CONC 34.3 g/dL (32.0-36.0); MEAN CORPUSCULAR VOLUME 97 fl (80-97); MONOCYTES % (AUTO) 11.8 % (3-13); RED BLOOD COUNT 3.57 10^6/uL (3.72-5.28); RED CELL DISTRIBUTION WIDTH 15.7 % (11.5-14.0); SEGMENTED NEUTROPHILS % (AUTO) 77.9 % (42-78); WHITE BLOOD COUNT 8.2 10^3/uL (4.0-10.5)
[2016-12-04 06:11] LABS: ALANINE AMINOTRANSFERASE 36 U/L (9-52); ALBUMIN 3.8 g/dL (3.5-5.0); ALKALINE PHOSPHATASE 178 U/L (38-126); ANION GAP 16 (5-19); ASPARTATE AMINO TRANSFERASE 40 U/L (14-36); BILIRUBIN,DIRECT 0.8 mg/dL (0.0-0.4); BILIRUBIN,TOTAL 1.1 mg/dL (0.2-1.3); BLOOD UREA NITROGEN 38 mg/dL (7-20); CALCIUM 8.6 mg/dL (8.4-10.2); CARBON DIOXIDE 30 mmol/L (22-30); CHLORIDE 96 mmol/L (98-107); CREATININE RESULT 3.82 mg/dL (0.52-1.25); GLUCOSE 96 mg/dL (75-110); MAGNESIUM 1.8 mg/dL (1.6-2.3); POTASSIUM 4.8 mmol/L (3.6-5.0); SODIUM 141.6 mmol/L (137-145); TOTAL PROTEIN 7.2 g/dL (6.3-8.2)
[2016-12-04] MEDS: PHENYTOIN SODIUM EXTENDED 100 MG CAPSULE PO SCH ×2 (08:13→22:28)
[2016-12-04] MEDS: ALBUTEROL SULFATE 0.083% NEB 2.5 MG/3 ML AMPUL NEB SCH (08:32)
[2016-12-04] MEDS ORDERED: LORAZEPAM INJ 2 MG/1 ML VIAL IV PRN (10:02)
[2016-12-04] MEDS ORDERED: ONDANSETRON HCL INJ/PF 4 MG/2 ML SDV IV PRN (10:03)
[2016-12-04] MEDS ORDERED: ALBUTEROL SULFATE 0.083% NEB 2.5 MG/3 ML AMPUL NEB PRN (10:10)
[2016-12-04] MEDS: PHENOBARBITAL 64.8 MG TABLET PO SCH (11:04)
[2016-12-04] MEDS: CARVEDILOL 3.125 MG TABLET PO SCH ×2 (11:05→22:28)
[2016-12-04] MEDS: DOXYCYCLINE HYCLATE 100 MG TABLET PO SCH ×2 (11:05→22:28)
[2016-12-04] MEDS: LEVOTHYROXINE SODIUM 0.05 MG TABLET PO SCH (11:06)
[2016-12-04] MEDS: LORAZEPAM 0.5 MG TABLET PO SCH ×2 (14:42→22:29)
[2016-12-04 19:37] LABS: HLA CLASS 1 ANTIBODY Negative (Negative); IIB/IIIA ANTIBODY Negative (Negative)
--- NOTE | 2016-12-04 20:15 | PDOC PROGRESS REPORT ---
Subjective Progress Note for:: 12/04/16 Subjective:: Patient told me that she actually feels a little bit better today compared to yesterday. I have spoken to Dr. Hardwick this morning and he informed me that the patient and the daughter have decided to stop all interventions including dialysis. Patient is being evaluated by hospice for palliative care. So I talked to the patient today to confirm her decision to stop dialysis and she confirmed that without any hesitation. She knows the consequences of her decision which is ultimately . Patient understood and she mentioned that she just wants to be comfortable and would like to just go into coma and be peaceful. Physical Exam Vital Signs: Temp Pulse Resp BP Pulse Ox 98.0 F 106 H 20 102/76 100 12/04/16 15:50 12/04/16 15:50 12/04/16 15:50 12/04/16 15:50 12/04/16 17:09 Intake & Output 12/03/16 12/04/16 12/05/16 06:59 06:59 06:59 Intake Total 699 780 565 Output Total 2900 Balance 699 -2120 565 Weight 72.7 kg 69.5 kg Exam: General appearance: PRESENT: no acute distress, cooperative, well-developed, well-nourished Head exam: PRESENT: atraumatic, normocephalic Eye exam: PRESENT: conjunctiva pale, PERRLA. ABSENT: scleral icterus Neck exam: ABSENT: JVD Respiratory exam: PRESENT: Decrease breath sounds on the right lung [place] compared to the left. ABSENT: crackles, rales, rhonchi, unlabored, wheezes Cardiovascular exam: PRESENT: Regular rate rhythm -+S1, +S2. ABSENT: diastolic murmur, systolic murmur GI/Abdominal exam: PRESENT: normal bowel sounds, soft. ABSENT: guarding, mass, tenderness Extremities exam: Grade 1 chronic bilateral pitting edema Neurological exam: PRESENT: alert, awake, oriented to person, place and time. Skin exam: PRESENT: dry, warm, Cardiovascular exam: PRESENT: +S1, +S2, systolic murmur GI/Abdominal exam: PRESENT: normal bowel sounds, soft. ABSENT: diminished bowel sounds, firm, tenderness Results Laboratory Results: 12/04/16 04:41 12/04/16 04:41 12/04/16 12/04/16 04:41 04:41 WBC 8.2 RBC 3.57 L Hgb 11.8 L Hct 34.4 L MCV 97 MCH 33.1 MCHC 34.3 RDW 15.7 H Plt Count 122 L Seg Neutrophils % 77.9 Lymphocytes % 8.8 L Monocytes % 11.8 Eosinophils % 1.0 Basophils % 0.5 Absolute Neutrophils 6.4 Absolute Lymphocytes 0.7 Absolute Monocytes 1.0 Absolute Eosinophils 0.1 Absolute Basophils 0.0 Sodium 141.6 Potassium 4.8 Chloride 96 L Carbon Dioxide 30 Anion Gap 16 BUN 38 H Creatinine 3.82 H Est GFR ( Amer) 14 L Est GFR (Non-Af Amer) 11 L Glucose 96 Calcium 8.6 Magnesium 1.8 Total Bilirubin 1.1 AST 40 H ALT 36 Alkaline Phosphatase 178 H Total Protein 7.2 Albumin 3.8 12/03/16 13:07 Creatine Kinase 58 Impressions: Thoracentesis Ultrasound 11/27/16 00:07 IMPRESSION: SUCCESSFUL THORACENTESIS USING ULTRASOUND GUIDANCE. Chest CT 11/28/16 00:00 IMPRESSION: Rapid re-accumulation of a large right pleural effusion Right middle and lower lobe airspace disease edema versus pneumonia Chest X-Ray 12/04/16 06:56 IMPRESSION: OVERALL NO SIGNIFICANT CHANGE IN APPEARANCE OF THE CHEST. Assessment & Plan - Diagnosis (1) ESRD (end stage renal disease) on dialysis Is this a current diagnosis for this admission?: YesPlan: Patient decided to stop dialysis starting today. We will respect the patient's wishes. (2) Acute on chronic respiratory failure with hypoxemia Is this a current diagnosis for this admission?: Yes (3) Bilateral pleural effusion Is this a current diagnosis for this admission?: Yes (4) COPD exacerbation Is this a current diagnosis for this admission?: Yes (5) Bleeding from shunt Is this a current diagnosis for this admission?: Yes (6) Anemia in chronic kidney disease (CKD) Is this a current diagnosis for this admission?: Yes (7) Chronic congestive heart failure Qualifiers: Congestive heart failure type: combined Qualified Code(s): I50.42 - Chronic combined systolic (congestive) and diastolic (congestive) heart failure Is this a current diagnosis for this admission?: Yes (8) Diabetes mellitus, type II Is this a current diagnosis for this admission?: Yes (9) Thrombocytopenia Is this a current diagnosis for this admission?: Yes (10) Hypertension Qualifiers: Hypertension type: essential hypertension Qualified Code(s): I10 - Essential (primary) hypertension Is this a current diagnosis for this admission?: Yes - Notes Notes: Case discussed with Dr. Hardwick earlier today. Discussed with patient. I will sign off at this time. - Time Time with patient: 15-25 minutes
--- NOTE | 2016-12-04 21:49 | PDOC PROGRESS REPORT ---
Subjective Progress Note for:: 12/04/16 Subjective:: Patient states that she is tired and has continued dyspnea. She continues to have poor appetite and nausea. She expressed to me the desire to stop aggressive measures and persue comfort care. Patient denies fever, chills, headache, new focal weakness, chest pain, abdominal pain, vomiting, diarrhea, constipation. Physical Exam Vital Signs: Temp Pulse Resp BP Pulse Ox 98.0 F 106 H 20 102/76 100 12/04/16 15:50 12/04/16 15:50 12/04/16 15:50 12/04/16 15:50 12/04/16 17:09 Intake & Output 12/03/16 12/04/16 12/05/16 06:59 06:59 06:59 Intake Total 699 780 565 Output Total 2900 Balance 699 -2120 565 Weight 72.7 kg 69.5 kg GENERAL: No acute distress, frail/ill-appearing HEENT: Conjunctiva clear, nonicteric, moist mucous membranes, no JVD, midline trachea RESPIRATORY: Rhonchi/egophony heard in right posterior inferior lung field CARDIAC: Regular rate and rhythm, no murmurs/gallops/rubs ABDOMEN: Soft, nondistended, nontender, positive bowel sounds, no rebound, no guarding EXTREMETIES: 1+ bilateral lower extremity edema. Cyanosis, clubbing NEUROLOGIC: Alert, oriented to person/place/time, CN's grossly intact, no focal deficits SKIN: No rash, wounds PSYCH: Depressed appearing Results Laboratory Results: 12/04/16 04:41 12/04/16 04:41 12/04/16 12/04/16 04:41 04:41 WBC 8.2 RBC 3.57 L Hgb 11.8 L Hct 34.4 L MCV 97 MCH 33.1 MCHC 34.3 RDW 15.7 H Plt Count 122 L Seg Neutrophils % 77.9 Lymphocytes % 8.8 L Monocytes % 11.8 Eosinophils % 1.0 Basophils % 0.5 Absolute Neutrophils 6.4 Absolute Lymphocytes 0.7 Absolute Monocytes 1.0 Absolute Eosinophils 0.1 Absolute Basophils 0.0 Sodium 141.6 Potassium 4.8 Chloride 96 L Carbon Dioxide 30 Anion Gap 16 BUN 38 H Creatinine 3.82 H Est GFR ( Amer) 14 L Est GFR (Non-Af Amer) 11 L Glucose 96 Calcium 8.6 Magnesium 1.8 Total Bilirubin 1.1 AST 40 H ALT 36 Alkaline Phosphatase 178 H Total Protein 7.2 Albumin 3.8 12/03/16 13:07 Creatine Kinase 58 Impressions: Thoracentesis Ultrasound 11/27/16 00:07 IMPRESSION: SUCCESSFUL THORACENTESIS USING ULTRASOUND GUIDANCE. Chest CT 11/28/16 00:00 IMPRESSION: Rapid re-accumulation of a large right pleural effusion Right middle and lower lobe airspace disease edema versus pneumonia Chest X-Ray 12/04/16 06:56 IMPRESSION: OVERALL NO SIGNIFICANT CHANGE IN APPEARANCE OF THE CHEST. Assessment & Plan - Diagnosis (1) Acute on chronic respiratory failure with hypoxemia Is this a current diagnosis for this admission?: YesPlan: Continue oxygen. (2) Bilateral pleural effusion Is this a current diagnosis for this admission?: Yes (3) Pneumonia Is this a current diagnosis for this admission?: Yes (4) Bleeding from shunt Is this a current diagnosis for this admission?: Yes (5) Chronic congestive heart failure Qualifiers: Congestive heart failure type: combined Qualified Code(s): I50.42 - Chronic combined systolic (congestive) and diastolic (congestive) heart failure Is this a current diagnosis for this admission?: Yes (6) ESRD (end stage renal disease) on dialysis Is this a current diagnosis for this admission?: YesPlan: Patient desires comfort measures only. Will stop HD per her wishes. Hospice to evaluate (7) Diabetes mellitus, type II Is this a current diagnosis for this admission?: Yes (8) Thrombocytopenia Is this a current diagnosis for this admission?: Yes (9) Secondary hyperparathyroidism (of renal origin) Is this a current diagnosis for this admission?: Yes (10) Seizure disorder Is this a current diagnosis for this admission?: Yes (11) Hypothyroid Is this a current diagnosis for this admission?: Yes (12) Coronary artery disease Qualifiers: Coronary Disease-Associated Artery/Lesion type: unspecified vessel or lesion type [place] vs. transplanted heart: [place] heart Associated angina: angina presence unspecified Qualified Code(s): I25.10 - Atherosclerotic heart disease of [place] coronary artery without angina pectoris Is this a current diagnosis for this admission?: Yes (13) Weakness Is this a current diagnosis for this admission?: Yes (14) Jaundice Is this a current diagnosis for this admission?: Yes (15) DNR (do not resuscitate) Is this a current diagnosis for this admission?: Yes - Time Time Spent with patient: 35 or more minutes Anticipated discharge: Hospice
[2016-12-05] MEDS: LORAZEPAM 0.5 MG TABLET PO SCH ×3 (06:17→22:37)
[2016-12-05 08:57] LABS: IA/IIA ANTIBODY Negative (Negative)
[2016-12-05] MEDS: PHENYTOIN SODIUM EXTENDED 100 MG CAPSULE PO SCH ×2 (09:45→22:36)
[2016-12-05] MEDS: CARVEDILOL 3.125 MG TABLET PO SCH ×2 (09:46→22:36)
[2016-12-05] MEDS: PHENOBARBITAL 64.8 MG TABLET PO SCH (09:46)
[2016-12-05] MEDS: LEVOTHYROXINE SODIUM 0.05 MG TABLET PO SCH (09:46)
[2016-12-05] MEDS: DOXYCYCLINE HYCLATE 100 MG TABLET PO SCH (09:46)
[2016-12-05] MEDS: PREDNISONE 20 MG TABLET PO SCH (09:46)
--- NOTE | 2016-12-05 10:24 | PDOC PROGRESS REPORT ---
Subjective Progress Note for:: 12/05/16 Subjective:: I had a good night but I do not intend to change my plan Physical Exam Vital Signs: Temp Pulse Resp BP Pulse Ox 97.4 F 89 20 114/53 L 100 12/05/16 07:49 12/05/16 07:49 12/05/16 07:49 12/05/16 07:49 12/05/16 07:49 Intake & Output 12/04/16 12/05/16 12/06/16 06:59 06:59 06:59 Intake Total 780 792 Output Total 2900 Balance -2120 792 Weight 69.5 kg 69.5 kg General appearance: PRESENT: no acute distress, disheveled, obese Head exam: PRESENT: atraumatic, normocephalic Eye exam: PRESENT: conjunctiva pale, EOMI Mouth exam: PRESENT: moist, neck supple Neck exam: ABSENT: carotid bruit, JVD, lymphadenopathy, thyromegaly Respiratory exam: PRESENT: decreased breath sounds, prolonged expiratory phas, rales, rhonchi, symmetrical, unlabored Cardiovascular exam: PRESENT: RRR, +S1, +S2 Pulses: PRESENT: normal radial pulses GI/Abdominal exam: PRESENT: normal bowel sounds, soft. ABSENT: distended, guarding, mass, organolmegaly, rebound, tenderness Rectal exam: PRESENT: deferred Neurological exam: PRESENT: alert, awake, oriented to person, oriented to place , oriented to time, oriented to situation Psychiatric exam: PRESENT: normal mood Skin exam: PRESENT: dry, warm Results Laboratory Results: 12/04/16 04:41 12/04/16 04:41 12/03/16 13:07 Creatine Kinase 58 Impressions: Thoracentesis Ultrasound 11/27/16 00:07 IMPRESSION: SUCCESSFUL THORACENTESIS USING ULTRASOUND GUIDANCE. Chest CT 11/28/16 00:00 IMPRESSION: Rapid re-accumulation of a large right pleural effusion Right middle and lower lobe airspace disease edema versus pneumonia Chest X-Ray 12/04/16 06:56 IMPRESSION: OVERALL NO SIGNIFICANT CHANGE IN APPEARANCE OF THE CHEST. Assessment & Plan - Diagnosis (1) Acute on chronic respiratory failure with hypoxemia Is this a current diagnosis for this admission?: YesPlan: No additional interventions per patient (2) Chronic congestive heart failure Qualifiers: Congestive heart failure type: combined Qualified Code(s): I50.42 - Chronic combined systolic (congestive) and diastolic (congestive) heart failure Is this a current diagnosis for this admission?: Yes (3) Thrombocytopenia Is this a current diagnosis for this admission?: Yes (4) COPD exacerbation Is this a current diagnosis for this admission?: Yes (5) Pleural effusion Is this a current diagnosis for this admission?: Yes
--- NOTE | 2016-12-05 12:56 | PDOC PROGRESS REPORT ---
Subjective Progress Note for:: 12/05/16 Subjective:: Denies any complaints today. Physical Exam Vital Signs: Temp Pulse Resp BP Pulse Ox 97.4 F 89 20 114/53 L 100 12/05/16 07:49 12/05/16 07:49 12/05/16 07:49 12/05/16 07:49 12/05/16 07:49 Intake & Output 12/04/16 12/05/16 12/06/16 06:59 06:59 06:59 Intake Total 780 792 237 Output Total 2900 0 Balance -2120 792 237 Weight 69.5 kg 69.5 kg General appearance: PRESENT: no acute distress Eye exam: PRESENT: conjunctiva pink. ABSENT: scleral icterus Mouth exam: PRESENT: moist, tongue midline Neck exam: ABSENT: JVD Respiratory exam: PRESENT: crackles - Right basilar respiratory crackles Cardiovascular exam: PRESENT: RRR. ABSENT: diastolic murmur, rubs, systolic murmur GI/Abdominal exam: PRESENT: normal bowel sounds, soft. ABSENT: distended, guarding, mass, organolmegaly, rebound, tenderness Extremities exam: PRESENT: pedal edema. ABSENT: calf tenderness, clubbing Neurological exam: PRESENT: alert, awake, oriented to person, oriented to place , oriented to time, oriented to situation, CN II-XII grossly intact. ABSENT: motor sensory deficit Psychiatric exam: PRESENT: appropriate affect Skin exam: PRESENT: dry, intact, warm. ABSENT: cyanosis, rash Results Laboratory Results: 12/04/16 04:41 12/04/16 04:41 12/03/16 13:07 Creatine Kinase 58 Impressions: Thoracentesis Ultrasound 11/27/16 00:07 IMPRESSION: SUCCESSFUL THORACENTESIS USING ULTRASOUND GUIDANCE. Chest CT 11/28/16 00:00 IMPRESSION: Rapid re-accumulation of a large right pleural effusion Right middle and lower lobe airspace disease edema versus pneumonia Chest X-Ray 12/04/16 06:56 IMPRESSION: OVERALL NO SIGNIFICANT CHANGE IN APPEARANCE OF THE CHEST. Assessment & Plan - Diagnosis (1) ESRD (end stage renal disease) on dialysis Is this a current diagnosis for this admission?: YesPlan: Patient has declined dialysis and will make comfort care only. (2) Acute on chronic respiratory failure with hypoxemia Is this a current diagnosis for this admission?: YesPlan: Secondary to congestive heart failure from renal failure. Patient has decided to do comfort care and no longer do dialysis. (3) Bilateral pleural effusion Is this a current diagnosis for this admission?: YesPlan: Secondary to CHF (4) Bleeding from shunt Is this a current diagnosis for this admission?: Yes (5) Hypokalemia Is this a current diagnosis for this admission?: Yes (6) Hypotension Qualifiers: Hypotension type: unspecified hypotension type Qualified Code(s): I95.9 - Hypotension, unspecified Is this a current diagnosis for this admission?: Yes (7) Hypoxia Is this a current diagnosis for this admission?: Yes (8) Thrombocytopenia Is this a current diagnosis for this admission?: Yes (9) Acute on chronic combined systolic and diastolic CHF (congestive heart failure) Is this a current diagnosis for this admission?: Yes (10) COPD exacerbation Is this a current diagnosis for this admission?: Yes (11) Anemia Is this a current diagnosis for this admission?: Yes (12) Coronary artery disease Qualifiers: Coronary Disease-Associated Artery/Lesion type: unspecified vessel or lesion type [place] vs. transplanted heart: [place] heart Associated angina: angina presence unspecified Qualified Code(s): I25.10 - Atherosclerotic heart disease of [place] coronary artery without angina pectoris Is this a current diagnosis for this admission?: Yes (13) Diabetes mellitus type 1 Is this a current diagnosis for this admission?: Yes (14) Hyperlipidemia Is this a current diagnosis for this admission?: Yes (15) Hypertension Qualifiers: Hypertension type: essential hypertension Qualified Code(s): I10 - Essential (primary) hypertension Is this a current diagnosis for this admission?: Yes (16) Secondary hyperparathyroidism (of renal origin) Is this a current diagnosis for this admission?: Yes (17) Seizure disorder Is this a current diagnosis for this admission?: Yes (18) DNR (do not resuscitate) Is this a current diagnosis for this admission?: Yes - Time Time Spent with patient: 25-34 minutes - Inpatient Certification Medical Necessity: Need Close Monitoring Due to Risk of Patient Decompensation, Need for Pain Control - Plan Summary Plan Summary: She is comfort care. Hospice has been consulted.
[2016-12-05] MEDS: GUAIFENESIN SYRP 200 MG/10 ML UDC PO PRN (19:31)
[2016-12-06] MEDS: MORPHINE SULFATE 10 MG/ML INJ IV PRN (01:37)
[2016-12-06] MEDS: PREDNISONE 20 MG TABLET PO SCH (09:39)
[2016-12-06] MEDS: LEVOTHYROXINE SODIUM 0.05 MG TABLET PO SCH (09:40)
[2016-12-06] MEDS: PHENYTOIN SODIUM EXTENDED 100 MG CAPSULE PO SCH ×2 (09:40→23:07)
[2016-12-06] MEDS: CARVEDILOL 3.125 MG TABLET PO SCH ×2 (09:41→23:08)
[2016-12-06] MEDS: PHENOBARBITAL 64.8 MG TABLET PO SCH (09:41)
[2016-12-06] MEDS: LORAZEPAM 0.5 MG TABLET PO SCH ×3 (09:41→23:08)
--- NOTE | 2016-12-06 10:00 | PDOC PROGRESS REPORT ---
Subjective Progress Note for:: 12/04/16 Subjective:: having some difficulty breathing Physical Exam Vital Signs: Temp Pulse Resp BP Pulse Ox 97.3 F 75 21 H 120/49 L 100 12/06/16 07:11 12/06/16 07:11 12/06/16 07:11 12/06/16 07:11 12/06/16 07:11 Intake & Output 12/05/16 12/06/16 12/07/16 06:59 06:59 06:59 Intake Total 792 928 Output Total 0 Balance 792 928 Weight 69.5 kg 70.2 kg General appearance: PRESENT: disheveled, mild distress Head exam: PRESENT: atraumatic, normocephalic Eye exam: PRESENT: conjunctiva pale, EOMI Mouth exam: PRESENT: moist, neck supple Respiratory exam: PRESENT: decreased breath sounds, prolonged expiratory phas, rales, rhonchi Cardiovascular exam: PRESENT: RRR, +S1, +S2 Pulses: PRESENT: normal radial pulses GI/Abdominal exam: PRESENT: normal bowel sounds, soft. ABSENT: distended, guarding, mass, organolmegaly, rebound, tenderness Rectal exam: PRESENT: deferred Gentrourinary exam: PRESENT: indwelling catheter Neurological exam: PRESENT: awake Skin exam: PRESENT: dry Results Laboratory Results: 12/04/16 04:41 12/04/16 04:41 12/03/16 13:07 Creatine Kinase 58 Impressions: Thoracentesis Ultrasound 11/27/16 00:07 IMPRESSION: SUCCESSFUL THORACENTESIS USING ULTRASOUND GUIDANCE. Chest CT 11/28/16 00:00 IMPRESSION: Rapid re-accumulation of a large right pleural effusion Right middle and lower lobe airspace disease edema versus pneumonia Chest X-Ray 12/04/16 06:56 IMPRESSION: OVERALL NO SIGNIFICANT CHANGE IN APPEARANCE OF THE CHEST. Assessment & Plan - Diagnosis (1) Acute on chronic respiratory failure with hypoxemia Is this a current diagnosis for this admission?: Yes (2) Chronic congestive heart failure Qualifiers: Congestive heart failure type: combined Qualified Code(s): I50.42 - Chronic combined systolic (congestive) and diastolic (congestive) heart failure Is this a current diagnosis for this admission?: Yes (3) Thrombocytopenia Is this a current diagnosis for this admission?: Yes (4) COPD exacerbation Is this a current diagnosis for this admission?: Yes (5) Pleural effusion Is this a current diagnosis for this admission?: Yes
--- NOTE | 2016-12-06 10:53 | PDOC PROGRESS REPORT ---
Subjective Progress Note for:: 12/06/16 Subjective:: Complains of mild shortness of breath. Physical Exam Vital Signs: Temp Pulse Resp BP Pulse Ox 97.3 F 75 21 H 120/49 L 100 12/06/16 07:11 12/06/16 07:11 12/06/16 07:11 12/06/16 07:11 12/06/16 07:11 Intake & Output 12/05/16 12/06/16 12/07/16 06:59 06:59 06:59 Intake Total 792 928 Output Total 0 Balance 792 928 Weight 69.5 kg 70.2 kg General appearance: PRESENT: mild distress Eye exam: PRESENT: conjunctiva pink. ABSENT: scleral icterus Mouth exam: PRESENT: moist, tongue midline Neck exam: PRESENT: JVD Respiratory exam: PRESENT: rales - Few right basilar rales. ABSENT: rhonchi, wheezes Cardiovascular exam: PRESENT: RRR. ABSENT: diastolic murmur, rubs, systolic murmur GI/Abdominal exam: PRESENT: normal bowel sounds, soft. ABSENT: distended, guarding, mass, organolmegaly, rebound, tenderness Extremities exam: ABSENT: calf tenderness, clubbing, pedal edema Neurological exam: PRESENT: alert, awake, oriented to person, oriented to place , oriented to time, oriented to situation, CN II-XII grossly intact. ABSENT: motor sensory deficit Psychiatric exam: PRESENT: appropriate affect Results Laboratory Results: 12/04/16 04:41 12/04/16 04:41 12/03/16 13:07 Creatine Kinase 58 Impressions: Thoracentesis Ultrasound 11/27/16 00:07 IMPRESSION: SUCCESSFUL THORACENTESIS USING ULTRASOUND GUIDANCE. Chest CT 11/28/16 00:00 IMPRESSION: Rapid re-accumulation of a large right pleural effusion Right middle and lower lobe airspace disease edema versus pneumonia Chest X-Ray 12/04/16 06:56 IMPRESSION: OVERALL NO SIGNIFICANT CHANGE IN APPEARANCE OF THE CHEST. Assessment & Plan - Diagnosis (1) ESRD (end stage renal disease) on dialysis Is this a current diagnosis for this admission?: YesPlan: Patient has declined dialysis and will do comfort care only. (2) Acute on chronic respiratory failure with hypoxemia Is this a current diagnosis for this admission?: YesPlan: Secondary to congestive heart failure from renal failure. Patient has decided to do comfort care and no longer do dialysis. (3) Bilateral pleural effusion Is this a current diagnosis for this admission?: YesPlan: Secondary to CHF (4) Bleeding from shunt Is this a current diagnosis for this admission?: YesPlan: Resolved (5) Hypotension Qualifiers: Hypotension type: unspecified hypotension type Qualified Code(s): I95.9 - Hypotension, unspecified Is this a current diagnosis for this admission?: YesPlan: Resolved. (6) Hypoxia Is this a current diagnosis for this admission?: YesPlan: Secondary to congestive heart failure. (7) Thrombocytopenia Is this a current diagnosis for this admission?: YesPlan: Patient is no evidence for active bleeding at this time. (8) Acute on chronic combined systolic and diastolic CHF (congestive heart failure) Is this a current diagnosis for this admission?: YesPlan: The patient has chronic renal failure exacerbating this (9) COPD exacerbation Is this a current diagnosis for this admission?: YesPlan: No wheezing on exam today. (10) Anemia Is this a current diagnosis for this admission?: YesPlan: Anemia of chronic illness. (11) Coronary artery disease Qualifiers: Coronary Disease-Associated Artery/Lesion type: unspecified vessel or lesion type [place] vs. transplanted heart: [place] heart Associated angina: angina presence unspecified Qualified Code(s): I25.10 - Atherosclerotic heart disease of [place] coronary artery without angina pectoris Is this a current diagnosis for this admission?: YesPlan: Denies any chest pain. (12) Diabetes mellitus type 1 Is this a current diagnosis for this admission?: Yes (13) Hyperlipidemia Is this a current diagnosis for this admission?: Yes (14) Hypertension Qualifiers: Hypertension type: essential hypertension Qualified Code(s): I10 - Essential (primary) hypertension Is this a current diagnosis for this admission?: Yes (15) Secondary hyperparathyroidism (of renal origin) Is this a current diagnosis for this admission?: Yes (16) Seizure disorder Is this a current diagnosis for this admission?: YesPlan: Patient has been seizure-free. (17) DNR (do not resuscitate) Is this a current diagnosis for this admission?: YesPlan: She also is comfort care now. - Time Time Spent with patient: 25-34 minutes - Inpatient Certification Medical Necessity: Need for Pain Control
[2016-12-07] MEDS: LORAZEPAM 0.5 MG TABLET PO SCH ×3 (05:50→21:46)
[2016-12-07] MEDS: PHENYTOIN SODIUM EXTENDED 100 MG CAPSULE PO SCH ×2 (10:10→21:46)
[2016-12-07] MEDS: PHENOBARBITAL 64.8 MG TABLET PO SCH (10:11)
[2016-12-07] MEDS: PREDNISONE 20 MG TABLET PO SCH (10:17)
[2016-12-07] MEDS: LEVOTHYROXINE SODIUM 0.05 MG TABLET PO SCH (10:17)
[2016-12-07] MEDS: CARVEDILOL 3.125 MG TABLET PO SCH (10:17)
--- NOTE | 2016-12-07 10:43 | PDOC PROGRESS REPORT ---
Subjective Progress Note for:: 12/07/16 Subjective:: Complains of some shortness of breath. Physical Exam Vital Signs: Temp Pulse Resp BP Pulse Ox 97.9 F 76 18 101/40 L 100 12/07/16 07:54 12/07/16 09:18 12/07/16 09:18 12/07/16 07:54 12/07/16 09:18 Intake & Output 12/06/16 12/07/16 12/08/16 06:59 06:59 06:59 Intake Total 928 541 Output Total 0 0 Balance 928 541 Weight 70.2 kg 72.3 kg General appearance: PRESENT: mild distress Eye exam: PRESENT: conjunctiva pink. ABSENT: scleral icterus Mouth exam: PRESENT: moist, tongue midline Neck exam: PRESENT: JVD Respiratory exam: PRESENT: rales - Few bibasilar rales. ABSENT: rhonchi, wheezes Cardiovascular exam: PRESENT: RRR, systolic murmur. ABSENT: diastolic murmur, rubs GI/Abdominal exam: PRESENT: normal bowel sounds, soft. ABSENT: distended, guarding, mass, organolmegaly, rebound, tenderness Extremities exam: PRESENT: pedal edema. ABSENT: calf tenderness, clubbing Neurological exam: PRESENT: oriented to person, oriented to place. ABSENT: oriented to time, oriented to situation Psychiatric exam: PRESENT: flat affect Skin exam: PRESENT: dry, intact, warm. ABSENT: cyanosis, rash Results Laboratory Results: 12/04/16 04:41 12/04/16 04:41 12/03/16 13:07 Creatine Kinase 58 Impressions: Thoracentesis Ultrasound 11/27/16 00:07 IMPRESSION: SUCCESSFUL THORACENTESIS USING ULTRASOUND GUIDANCE. Chest CT 11/28/16 00:00 IMPRESSION: Rapid re-accumulation of a large right pleural effusion Right middle and lower lobe airspace disease edema versus pneumonia Chest X-Ray 12/04/16 06:56 IMPRESSION: OVERALL NO SIGNIFICANT CHANGE IN APPEARANCE OF THE CHEST. Assessment & Plan - Diagnosis (1) ESRD (end stage renal disease) on dialysis Is this a current diagnosis for this admission?: YesPlan: Patient has declined dialysis and will do comfort care only. (2) Acute on chronic respiratory failure with hypoxemia Is this a current diagnosis for this admission?: YesPlan: Secondary to congestive heart failure from renal failure. Patient has decided to do comfort care and no longer do dialysis. (3) Bilateral pleural effusion Is this a current diagnosis for this admission?: YesPlan: Secondary to CHF (4) Bleeding from shunt Is this a current diagnosis for this admission?: YesPlan: Resolved (5) Hypotension Qualifiers: Hypotension type: unspecified hypotension type Qualified Code(s): I95.9 - Hypotension, unspecified Is this a current diagnosis for this admission?: YesPlan: Resolved. (6) Hypoxia Is this a current diagnosis for this admission?: YesPlan: Secondary to congestive heart failure. (7) Thrombocytopenia Is this a current diagnosis for this admission?: YesPlan: Patient is no evidence for active bleeding at this time. (8) Acute on chronic combined systolic and diastolic CHF (congestive heart failure) Is this a current diagnosis for this admission?: YesPlan: The patient has chronic renal failure exacerbating this (9) COPD exacerbation Is this a current diagnosis for this admission?: YesPlan: No wheezing on exam today. (10) Anemia Is this a current diagnosis for this admission?: YesPlan: Anemia of chronic illness. (11) Coronary artery disease Qualifiers: Coronary Disease-Associated Artery/Lesion type: unspecified vessel or lesion type [place] vs. transplanted heart: [place] heart Associated angina: angina presence unspecified Qualified Code(s): I25.10 - Atherosclerotic heart disease of [place] coronary artery without angina pectoris Is this a current diagnosis for this admission?: YesPlan: Denies any chest pain. (12) Diabetes mellitus type 1 Is this a current diagnosis for this admission?: YesPlan: We'll cover with finger stick blood sugars as well as sliding scale insulin. (13) Hyperlipidemia Is this a current diagnosis for this admission?: Yes (14) Hypertension Qualifiers: Hypertension type: essential hypertension Qualified Code(s): I10 - Essential (primary) hypertension Is this a current diagnosis for this admission?: Yes (15) Secondary hyperparathyroidism (of renal origin) Is this a current diagnosis for this admission?: Yes (16) Seizure disorder Is this a current diagnosis for this admission?: YesPlan: Patient has been seizure-free. (17) DNR (do not resuscitate) Is this a current diagnosis for this admission?: YesPlan: She also is comfort care now. - Time Time Spent with patient: 15-24 minutes - Inpatient Certification Medical Necessity: Need Close Monitoring Due to Risk of Patient Decompensation, Need for Pain Control
[2016-12-07] MEDS: MORPHINE SULFATE 10 MG/ML INJ IV PRN (10:57)
[2016-12-08] MEDS: LORAZEPAM 0.5 MG TABLET PO SCH ×2 (05:22→14:21)
--- NOTE | 2016-12-08 10:35 | PDOC PROGRESS REPORT ---
Subjective Progress Note for:: 12/08/16 Subjective:: Feeling a little bit better Physical Exam Vital Signs: Temp Pulse Resp BP Pulse Ox 97.6 F 73 22 H 115/35 L 100 12/08/16 07:13 12/08/16 07:13 12/08/16 07:13 12/08/16 07:13 12/08/16 07:13 Intake & Output 12/07/16 12/08/16 12/09/16 06:59 06:59 06:59 Intake Total 541 1190 Output Total 0 200 Balance 541 990 Weight 72.3 kg General appearance: PRESENT: no acute distress, cooperative, disheveled Head exam: PRESENT: atraumatic, normocephalic Eye exam: PRESENT: conjunctiva pale, EOMI Mouth exam: PRESENT: dry mucosa, neck supple Neck exam: ABSENT: carotid bruit, JVD, lymphadenopathy, thyromegaly Respiratory exam: PRESENT: decreased breath sounds, prolonged expiratory phas, rales, rhonchi, symmetrical, unlabored Cardiovascular exam: PRESENT: RRR, +S1, +S2 Pulses: PRESENT: normal radial pulses GI/Abdominal exam: PRESENT: normal bowel sounds, soft. ABSENT: distended, guarding, mass, organolmegaly, rebound, tenderness Rectal exam: PRESENT: deferred Extremities exam: PRESENT: +1 edema Neurological exam: PRESENT: alert, awake Skin exam: PRESENT: dry, warm Results Laboratory Results: 12/04/16 04:41 12/04/16 04:41 12/03/16 13:07 Creatine Kinase 58 Impressions: Thoracentesis Ultrasound 11/27/16 00:07 IMPRESSION: SUCCESSFUL THORACENTESIS USING ULTRASOUND GUIDANCE. Chest CT 11/28/16 00:00 IMPRESSION: Rapid re-accumulation of a large right pleural effusion Right middle and lower lobe airspace disease edema versus pneumonia Chest X-Ray 12/04/16 06:56 IMPRESSION: OVERALL NO SIGNIFICANT CHANGE IN APPEARANCE OF THE CHEST. Assessment & Plan - Diagnosis (1) Acute on chronic respiratory failure with hypoxemia Is this a current diagnosis for this admission?: Yes (2) Chronic congestive heart failure Qualifiers: Congestive heart failure type: combined Qualified Code(s): I50.42 - Chronic combined systolic (congestive) and diastolic (congestive) heart failure Is this a current diagnosis for this admission?: Yes (3) Thrombocytopenia Is this a current diagnosis for this admission?: Yes (4) COPD exacerbation Is this a current diagnosis for this admission?: Yes (5) Pleural effusion Is this a current diagnosis for this admission?: YesPlan: Patient does not want thoracentesis
[2016-12-08] MEDS: PHENYTOIN SODIUM EXTENDED 100 MG CAPSULE PO SCH (10:41)
[2016-12-08] MEDS: MORPHINE SULFATE 10 MG/ML INJ IV PRN (10:41)
[2016-12-08] MEDS: PHENOBARBITAL 64.8 MG TABLET PO SCH (10:41)
[2016-12-08 12:58] VITALS: BP 111/40
--- NOTE | 2016-12-08 14:17 | PDOC TRANSFER SUMMARY ---
General - Admit/Disc Date/PCP Admission Date/Primary Care Provider: 11/25/16 20:55 MELODY ARCINIEGA MD Discharge Date: 12/08/16 - Discharge Diagnosis (1) ESRD (end stage renal disease) on dialysis Is this a current diagnosis for this admission?: Yes (2) Acute on chronic respiratory failure with hypoxemia Is this a current diagnosis for this admission?: Yes (3) Bilateral pleural effusion Is this a current diagnosis for this admission?: Yes (4) Bleeding from shunt Is this a current diagnosis for this admission?: Yes (5) Hypotension Is this a current diagnosis for this admission?: Yes (6) Hypoxia Is this a current diagnosis for this admission?: Yes (7) Thrombocytopenia Is this a current diagnosis for this admission?: Yes (8) Acute on chronic combined systolic and diastolic CHF (congestive heart failure) Is this a current diagnosis for this admission?: Yes (9) COPD exacerbation Is this a current diagnosis for this admission?: Yes (10) Anemia Is this a current diagnosis for this admission?: Yes (11) Coronary artery disease Is this a current diagnosis for this admission?: Yes (12) Diabetes mellitus type 1 Is this a current diagnosis for this admission?: Yes (13) Hyperlipidemia Is this a current diagnosis for this admission?: Yes (14) Hypertension Is this a current diagnosis for this admission?: Yes (15) Secondary hyperparathyroidism (of renal origin) Is this a current diagnosis for this admission?: Yes (16) Seizure disorder Is this a current diagnosis for this admission?: Yes (17) DNR (do not resuscitate) Is this a current diagnosis for this admission?: Yes - Additional Information Resuscitation Status: Do Not Resuscitate - Implications of DO NOT RESUSCITATE/ DO NOT INTUBATE status discussed with patient. Discussed in layperson's terms. Implications understood. Patient is the health care decision maker. Patient conversation is lucid and appropriate. Patient desires DO NOT RESUSCITATE/DO NOT INTUBATE status. Will honor patient wishes. Discharge Diet: Cardiac Discharge Activity: Activity As Tolerated Home Medications: Phenobarbital [Phenobarbital 64.8 mg Tablet] 64.8 mg PO DAILY 11/26/16 Phenytoin Sodium Extended [Dilantin 100 mg Capsule.er] 100 mg PO QAM 11/26/16 Phenytoin Sodium Extended [Dilantin 100 mg Capsule.er] 200 mg PO QHS 11/26/16 Morphine Sulfate [Morphine 10 mg/ml Inj] 2 mg IV Q4HP PRN vial 12/08/16 History of Present Illness Admission Date/PCP: 11/25/16 20:55 MELODY ARCINIEGA MD History of Present Illness: BRANT ELLISON is a 76 year old female, with end-stage renal disease , having completed her most recent dialysis session earlier the day of admission who presents with complaints of bleeding from her dialysis access site , along with a 2 or 3 day history of slowly progressive shortness of breath. Nothing in particular made the shortness of breath worse. Chronic dry cough, without recent change. Was in a fair amount of respiratory distress upon presentation to the emergency room, but was placed on BiPAP, and is currently breathing much more comfortably. Denies fever chills, diarrhea or dysuria, chest or abdominal pain. Produces a small amount of urine each day. Carries a diagnosis of COPD due to secondhand smoke from her . She never smoked herself. Home oxygen. Also carries a diagnosis of combined systolic and diastolic congestive heart failure. Does state her ankles and feet have been more swollen than usual the last day or 2. Bleeding from the access site was easily controlled in the emergency room by application of a hemostatic pad, according to the emergency room physician, with whom I discussed the patient. Prior to my being called, the emergency room physician did discuss the patient with Dr. Quach, patient's bible worker. Patient reportedly has chronic bilateral pleural effusions. According to emergency room physician, Dr. Quach believes patient would benefit from thoracentesis. Hospitalized on our service December 29 through the of last year with discharge diagnoses including syncope, felt secondary to seizure due to subtherapeutic Dilantin level. Venous stasis ulcers noted on left lower extremity. History and physical and discharge summary have been reviewed. Hospital Course Hospital Course: 68-year-old female who is on chronic dialysis because of end-stage renal disease who presented with shortness of breath was found to be in congestive heart failure. Patient had chronic bilateral pleural effusions. Patient underwent thoracentesis with removal of some of the fluid. The patient continued to have shortness of breath and continued with dialysis. The patient eventually decided that she did not want any further dialysis and requested to be hospice. Patient was made comfort care and was given IV morphine. The patient continues to require intermittent morphine. Patient has been accepted at [facility] for end-of-life care and pain management and symptom control. Physical Exam Vital Signs: Temp Pulse Resp BP Pulse Ox 97.3 F 74 24 H 111/40 L 97 12/08/16 11:34 12/08/16 11:34 12/08/16 11:34 12/08/16 11:34 12/08/16 11:34 Intake & Output 12/07/16 12/08/16 12/09/16 06:59 06:59 06:59 Intake Total 541 1190 340 Output Total 0 200 0 Balance 541 990 340 Weight 72.3 kg General appearance: PRESENT: mild distress Eye exam: PRESENT: conjunctiva pink. ABSENT: scleral icterus Mouth exam: PRESENT: moist, tongue midline Neck exam: PRESENT: JVD Respiratory exam: PRESENT: decreased breath sounds, rales - Bibasilar Cardiovascular exam: PRESENT: RRR, systolic murmur - 3/6 systolic murmur. ABSENT: diastolic murmur, rubs GI/Abdominal exam: PRESENT: normal bowel sounds, soft. ABSENT: distended, guarding, mass, organolmegaly, rebound, tenderness Extremities exam: PRESENT: pedal edema, +2 edema. ABSENT: calf tenderness, clubbing Neurological exam: PRESENT: alert, awake, oriented to person, oriented to place , oriented to time, oriented to situation, CN II-XII grossly intact. ABSENT: motor sensory deficit Psychiatric exam: PRESENT: appropriate affect Results Laboratory Results: 12/04/16 04:41 12/04/16 04:41 12/03/16 13:07 Creatine Kinase 58 Impressions: Thoracentesis Ultrasound 11/27/16 00:07 IMPRESSION: SUCCESSFUL THORACENTESIS USING ULTRASOUND GUIDANCE. Chest CT 11/28/16 00:00 IMPRESSION: Rapid re-accumulation of a large right pleural effusion Right middle and lower lobe airspace disease edema versus pneumonia Chest X-Ray 12/04/16 06:56 IMPRESSION: OVERALL NO SIGNIFICANT CHANGE IN APPEARANCE OF THE CHEST. Transfer Plan - Disposition Transfer Plan: [facility] - Time Spent with Patient Time spent with patient: Greater than 30 Minutes Qualifiers PATEINT BEING DISCHARGED WITH ANY OF THE FOLLOWING DIAGNOSIS?: Heart Failure HF Pt being discharged on ACEI for LVEF less than 40%?: Yes Reason(s) for not prescribing ACEI:: Hospice Care Reason(s) for not prescribing ARBS:: Hospice Care HF Pt discharged on evidence-based Beta Aminah:: No Reason(s) for not prescribing evidence-based Beta Aminah:: Hospice Care Plan Discharge Plan: Patient is to be transferred to the hospice [facility] Time Spent: Greater than 30 Minutes
== END 2016-12-08 15:18 | disposition hospice, inpatient (51) | DRG 189 ==
LOC: ER 16:41 → EH 20:39 → UNDOADMIN 20:39 → EH 20:55 → 3S 11-26 00:35
PROVIDERS: ADMIT Family Medicine; ATTEND Family Medicine
PROC: 5A09457 Assistance with Respiratory Ventilation, 24-96 Consecutive Hours, Continuous Positive Airway Pressure (ICD-10-PCS; principal; 2016-11-25)
PROC: 0W993ZZ Drainage of Right Pleural Cavity, Percutaneous Approach (ICD-10-PCS; 2016-11-27)
PROC: 0W993ZX Drainage of Right Pleural Cavity, Percutaneous Approach, Diagnostic (ICD-10-PCS; 2016-11-27)
DX: J96.21 Acute and chronic respiratory failure with hypoxia (principal); N18.6 End stage renal disease; I50.43 Acute on chronic combined systolic (congestive) and diastolic (congestive) heart failure; J91.8 Pleural effusion in other conditions classified elsewhere; I13.2 Hypertensive heart and chronic kidney disease with heart failure and with stage 5 chronic kidney disease, or end stage renal disease; T82.838A Hemorrhage due to vascular prosthetic devices, implants and grafts, initial encounter; J44.1 Chronic obstructive pulmonary disease with (acute) exacerbation; D63.1 Anemia in chronic kidney disease; E10.22 Type 1 diabetes mellitus with diabetic chronic kidney disease; Z99.2 Dependence on renal dialysis; I95.9 Hypotension, unspecified; D69.6 Thrombocytopenia, unspecified; I25.10 Atherosclerotic heart disease of native coronary artery without angina pectoris; E78.5 Hyperlipidemia, unspecified; G40.909 Epilepsy, unspecified, not intractable, without status epilepticus; I87.8 Other specified disorders of veins; F32.9 Major depressive disorder, single episode, unspecified; F41.1 Generalized anxiety disorder; Z66 Do not resuscitate; Z79.82 Long term (current) use of aspirin; Z79.02 Long term (current) use of antithrombotics/antiplatelets; Z79.4 Long term (current) use of insulin; Z95.1 Presence of aortocoronary bypass graft; Z90.49 Acquired absence of other specified parts of digestive tract; Z90.710 Acquired absence of both cervix and uterus; Z95.0 Presence of cardiac pacemaker; Z95.5 Presence of coronary angioplasty implant and graft; Z88.1 Allergy status to other antibiotic agents
CPT/HCPCS: 32555; 36415; 71010; 71250; 80048; 80053; 80076; 80184; 80185; 81001; 82550; 82803; 82962; 83605; 83735; 83880; 84443; 85025; 85027; 85610; 85730; 86022; 87040; 87070; 87075; 87086; 87088; 87186; 87205; 89050; 93005; 93010; 94660; 99291; J0456; J0696; J1815; J2270; J3490; J7030; J7060; J7512; J7620